=== PATIENT | female | born 1935 | race Caucasian/White ===

== ENCOUNTER 2021-01-01 15:40 | Outpatient (CLI) | payer MEDICARE, SELFPAY ==
--- NOTE | ~2021-01-01 | XR_ITS ---
EXAMINATION: XR knee LT 3V EXAM DATE: 01/01/2021 16:10 INDICATION: Fall yesterday, generalized left knee pain, stiffness. TECHNIQUE: Three projections of the left knee. There is no prior study for comparison. FINDINGS: There is no left knee joint effusion. There is mild scattered distal superficial femoral a rterial sclerosis. There is moderate to severe medial tibial femoral compartment, otherwise moderate left knee primary osteoarthritis. There are no acute fractures or dislocations identified. There is no subcutaneous gas. The soft tissue is unremarkable. There are no radiopaque foreign bodies. IMPRESSION: 1. XR knee LT 3V exam without acute osseous findings. 2. Advanced osteoarthritis. Reviewed, dictated and finalized at location B.
--- NOTE | ~2021-01-01 | XR_ITS ---
XR hip LT min 2V 01/01/2021 16:10 Indication: Left hip pain after recent fall Procedure: 2 views left hip Comparison: 06/15/2009 Findings: There is a vascular stent in the left femoral region. Mild osteoarthritis of the left hip. Mild osteitis pubis. No acute fracture or traumatic malalignment. There are vascular calcifications. Impression: 1: No acute fracture. Reviewed, dictated and finalized at location A. Impression: 1: No acute fracture.
== END 2021-01-01 15:41 | disposition home or self-care (01) ==
LOC: CHSIMG 15:45
PROVIDERS: PCP Internal Medicine; Visit Provider Internal Medicine
DX: S79.912A Unspecified injury of left hip, initial encounter (principal); S89.92XA Unspecified injury of left lower leg, initial encounter; W19.XXXA Unspecified fall, initial encounter
CPT/HCPCS: 73502; 73562

== ENCOUNTER 2021-10-08 07:26 | Emergency (ER) | payer MEDICARE, OTHER, SELFPAY ==
--- NOTE | ~2021-10-08 | XR_ITS ---
EXAMINATION: XR sacrum coccyx min 2V DATE: 10/08/2021 08:18 INDICATION: Low back pain. Left buttock pain. Fall. TECHNIQUE: 3 views of the sacrum and coccyx were obtained. COMPARISON: None. FINDINGS: There is lumbar levocurvature and severe spondylosis. No fracture. Osteitis pubis is noted. There is mild osteoarthritis of the sacroiliac joints. IMPRESSION: 1. No fracture. Reviewed, dictated and finalized at location A. IMPRESSION: 1. No fracture.
--- NOTE | ~2021-10-08 | XR_ITS ---
EXAMINATION: XR knee LT 3V DATE: 10/08/2021 08:18 INDICATION: Left knee pain and swelling. Fall. TECHNIQUE: 3 views of left knee were obtained. COMPARISON: Left knee radiographs 01/01/2021 FINDINGS: There is lateral subluxation of tibia with respect to distal femur. No fracture. There is s evere osteoarthritis of medial compartment and moderate osteoarthritis of lateral and patellofemoral compartments. No knee joint effusion. IMPRESSION: 1. Severe left knee osteoarthritis. Reviewed, dictated and finalized at location A.
--- NOTE | ~2021-10-08 | CT_ITS ---
EXAMINATION: CT brain wo con DATE: 10/08/2021 08:05 INDICATION: Fall with head injury TECHNIQUE: Computed tomography (CT) of the head was performed without intravenous contrast. Sagittal and coronal reconstructions were performed. The mA was adjusted according to patient size. Iterative reconstruction technique was employed. The dose-length product was 605.33 mGy-cm. COMPARISON: None FINDINGS: No fracture. No acute intracranial hemorrhage, acute infarction or abnormal extra axial fluid collect ion. There is mild scattered white matter hypoattenuation consistent with chronic small vessel ischem ic disease. Ventricles are normal and symmetric. No mass/mass effect. Changes of bilateral intraocul ar lens replacement. The paranasal sinuses and left mastoid air cells and middle ear cavity are clear . The right mastoid is hypopneumatized with right mastoid effusion which surrounds the ossicular saranya n. Intracranial calcified cerebral atherosclerosis is noted. IMPRESSION: 1. Normal aging brain. No fracture or acute intracranial process. 2. 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 Reviewed, dictated and finalized at location A. IMPRESSION: 1. Normal aging brain. No fracture or acute intracranial process. 2. Right otomastoiditis fusion with developmentally hypopneumatized right masto id.
--- NOTE | 2021-10-08 07:39 | ED.FALL ---
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 She fell on her bottom. -- Worsening of her left knee and with swelling. -- after the fall she hit the back of her head. No loss of consciousness. No headache or vomiting. MD complaint: fall Onset (ago): hour(s) ( Fell 1 hour ago.) Fall from: standing Fall witnessed: no Place fall occurred: home Loss of consciousness: none Prolonged down time: no Symptoms prior to fall: none Context: tripped/slipped Location of injury: head and back Location of injury - extremities: Left: knee Quality: dull and aching Related Data Home Medications Medication Instructions Recorded Confirmed alendronate 70 mg tablet 70 mg PO WEEKLY 10/08/21 10/08/21 alprazolam 0.5 mg tablet 0.5 mg PO HS 10/08/21 10/08/21 amlodipine 10 mg tablet 10 mg PO DAILY 10/08/21 10/08/21 clopidogrel 75 mg tablet 75 mg PO DAILY 10/08/21 10/08/21 glimepiride 2 mg tablet 2 mg PO DAILY 10/08/21 10/08/21 levothyroxine 50 mcg tablet 50 mcg PO DAILY 10/08/21 10/08/21 losartan 100 mg tablet 100 mg PO DAILY 10/08/21 10/08/21 metoprolol tartrate 100 mg tablet 100 mg PO BID 10/08/21 10/08/21 timolol maleate 0.5 % eye drops 1 drp EACH EYE QAM 10/08/21 10/08/21 Allergies Allergy/AdvReac Type Severity Reaction Status Date / Time aspirin Allergy Mild Dizziness Unverified 06/21/08 15:51 amoxicillin [From Augmentin] Allergy Anaphylaxis Verified 10/08/21 07:50 clavulanic acid Allergy Anaphylaxis Verified 10/08/21 07:50 [From Augmentin] Review of Systems Review of Systems: All systems reviewed & are unremarkable except as noted in HPI and below Constitutional: Constitutional: Reports as per HPI and Reports no additional constitutional complaints Eyes: Eyes: Reports as per HPI and Reports no additional eye complaints ENT: Reports system reviewed and no additional complaints, except as documented and Reports as per HPI Cardiovascular: Cardiovascular: Reports as per HPI and Reports no additional cardiovascular complaints Respiratory: Respiratory: Reports as per HPI and Reports no additional respiratory complaints Gastrointestinal: Gastrointestinal: Reports as per HPI and Reports no additional gastrointestinal complaints Genitourinary: Genitourinary: Reports no additional female genitourinary complaints and Reports as per HPI Musculoskeletal: Musculoskeletal: Reports no additional musculoskeletal complaints Comments: Low back pain without any radiation. Left knee pain with swelling. Chronic right ankle pain. Integumentary/Breasts: Skin/Breast: Reports system reviewed and no additional complaints, except as docu Comments: Bruises in both upper extremities Neurologic: Reports system reviewed and no additional complaints, except as documented and Reports as per HPI Psychiatric: Psychiatric: Reports no additional psychiatric complaints and Reports as per HPI Endocrine: Endocrine: Reports no additional endocrine complaints and Reports as per HPI Hematologic/Lymphatic: Hematologic/Lymphatic: Reports no additional hematologic/lymphatic complaints and Reports as per HPI Allergic/Immunologic: Allergic/Immunologic: Reports no additional allergic/immunologic complaints and Reports as per HPI [facility] Past Medical History Medical History (Updated 10/08/21 @ 08:48 by Franklin Roque MD) Smith's palsy Peripheral vascular disease Surgical History Surgical History (Updated 10/08/21 @ 07:55 by Franklin Roque MD) H/O carotid endarterectomy H/O neck surgery
[2021-10-08 07:44] VITALS: BP 158/67; PULSE 58; RESP 16; TEMP 36.4; O2SAT 98
[2021-10-08 08:51] VITALS: BP 148/67; PULSE 68; RESP 17; TEMP 36.4; O2SAT 96
[2021-10-29 13:46] LABS: Glucose Point of Care 163 mg/dl (65-105)
== END 2021-10-08 08:57 | disposition home or self-care (01) ==
PROVIDERS: Emergency Provider Internal Medicine Critical Care Medicine; PCP Internal Medicine
DX: M19.90 Unspecified osteoarthritis, unspecified site (principal); S09.90XA Unspecified injury of head, initial encounter; W19.XXXA Unspecified fall, initial encounter; G51.0 Bell's palsy; I73.9 Peripheral vascular disease, unspecified; E11.9 Type 2 diabetes mellitus without complications
CPT/HCPCS: 70450; 72220; 73562; 82948; 99284

== ENCOUNTER 2022-05-13 06:00 | Observation (INO) | payer MEDICARE, OTHER, SELFPAY ==
[2022-05-13] VITALS (28 sets, daily range): BP systolic 148–202; BP diastolic 60–84; PULSE 62–124; RESP 12–21; TEMP 36.1–37; O2SAT 94–100; BMI 32.4
--- NOTE | ~2022-05-13 | XR_ITS ---
EXAMINATION: XR chest 1V portable DATE: 05/13/2022 06:38 INDICATION: Cough and shortness of breath TECHNIQUE: frontal view of the chest was obtained. COMPARISON: Chest radiograph dated 12/30/11 FINDINGS: Mildly decreased lung volumes. Mild anomaly streaky opacities in bilateral lower lung zones. No pneum othorax or definitive pleural effusion. Size is normal. Bilateral rotator cuff arthropathy. IMPRESSION: 1. Small lung volumes with mild opacities in the bilateral lower lung zones most likely representing atelectasis with differential including pneumonia or mild pulmonary edema. Reviewed, dictated and finalized at location A. ERING OPERATOR IMPRESSION: 1. Small lung volumes with mild opacities in the bilateral lower lung zones mos t likely representing atelectasis with differential including pneumonia or mild pulmonary edema.
--- NOTE | ~2022-05-13 | CT_ITS ---
EXAMINATION: CTA chest PE protocol DATE: 05/13/2022 08:15 INDICATION: Shortness of breath. Cough. TECHNIQUE: Computed tomography angiography (CTA) of the chest was performed with 100 mL Omnipaque-350 intravenous contrast timed to evaluate the pulmonary arteries. Coronal maximum intensity projection 3D-reconstructions were created by the technologist. Automated exposure control and iterative reconst ruction technique were employed. The dose-length product was 500.72 mGy-cm. COMPARISON: None. FINDINGS: There is widespread peripheral septal thickening in the lungs bilaterally associated with m ild groundglass opacities. There is bronchiectasis and honeycombing in the peripheral inferior lungs. A calcified right lung nodule and calcified right hilar lymph nodes are consistent with old granulom atous disease. No pleural effusion. The heart size is normal. There are coronary artery calcification s. No pericardial effusion. There is no pulmonary embolus. There is mild chronic anterior wedging of multiple thoracic vertebral bodies. There is moderate thoracic spondylosis. IMPRESSION: 1. No pulmonary embolus. 2. 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 Reviewed, dictated and finalized at location A. MOMETER TESTER IMPRESSION: 1. No pulmonary embolus. 2. Chronic interstitial lung disease in a pattern of usual interstitial pneumon ia (UIP).
--- NOTE | 2022-05-13 06:15 | ED.GENADULT ---
HPI - General Adult General Chief complaint: Shortness of Breath/Dyspnea <Chandrakant Tomlinson MD - Last Filed: 05/13/22 06:54> Stated complaint: Shortness of Breath <Chandrakant Tomlinson MD - Last Filed: 05/13/22 06:54> Time Seen by Provider: 05/13/22 06:15 <Chandrakant Tomlinson MD - Last Filed: 05/13/22 06:54> Source: patient <Chandrakant Tomlinson MD - Last Filed: 05/13/22 06:54> Mode of arrival: ambulatory <Chandrakant Tomlinson MD - Last Filed: 05/13/22 06:54> Limitations: no limitations <Chandrakant Tomlinson MD - Last Filed: 05/13/22 06:54> History of Present Illness HPI narrative: patient is a 86-year-old white female complains shortness of breath off and on for the last week worse over last 3 days especially last night. She has had a cough productive of whitish sputum. She said they changed her Advair to Breo yesterday because of thrush. Taken her albuterol meter dose inhaler and Breo without any relief last night. She denies any chest pain or any pain. Denies any nausea or vomiting bleeding or bruising problems eating or drinking swelling. Last bowel movement was yesterday which was normal. Denies any history of heart disease. She has asthma since she had breast cancer and radiation denies any other complaints <Chandrakant Tomlinson MD - Last Filed: 05/13/22 06:54> Related Data Home medications: Home Medications Medication Instructions Recorded Confirmed alprazolam 0.5 mg tablet 0.5 mg PO HS 10/08/21 05/13/22 amlodipine 10 mg tablet 10 mg PO DAILY 10/08/21 05/13/22 clopidogrel 75 mg tablet 75 mg PO DAILY 10/08/21 05/13/22 glimepiride 2 mg tablet 3.5 mg PO QAM 10/08/21 05/13/22 losartan 100 mg tablet 100 mg PO DAILY 10/08/21 05/13/22 metoprolol tartrate 100 mg tablet 100 mg PO BID 10/08/21 05/13/22 timolol maleate 0.5 % eye drops 1 drp EACH EYE QAM 10/08/21 05/13/22 albuterol sulfate 90 mcg/actuation 2 puff inhalation Q6H PRN 05/13/22 05/13/22 aerosol inhaler Shortness Of Breath Or Wheezing alendronate 70 mg tablet 70 mg PO WEEKLY 05/13/22 05/13/22 ergocalciferol (vitamin D2) 1,250 1,250 mcg PO WEEKLY 05/13/22 05/13/22 mcg (50,000 unit) capsule fluticasone furoate 200 1 inh inhalation DAILY 05/13/22 05/13/22 mcg-vilanterol 25 mcg/dose inhalation powder (Breo Ellipta) levothyroxine 75 mcg tablet See Rx Instructions .Route .COMPLEX 05/13/22 05/13/22 <Chandrakant Tomlinson MD - Last Filed: 05/13/22 06:54> Allergies/adverse reactions: Allergies Allergy/AdvReac Type Severity Reaction Status Date / Time aspirin Allergy Mild Dizziness Verified 05/13/22 06:16 amoxicillin [From Augmentin] Allergy Anaphylaxis Verified 05/13/22 06:16 clavulanic acid Allergy Anaphylaxis Verified 05/13/22 06:16 [From Augmentin] <Chandrakant Tomlinson MD - Last Filed: 05/13/22 06:54> Review of Systems Constitutional: Constitutional: Reports no additional constitutional complaints, Denies chills, Denies fatigue, Denies fever(s) and Denies weakness <Chandrakant Tomlinson MD - Last Filed: 05/13/22 06:54> Eyes: Eyes: Reports no additional eye complaints <Chandrakant Tomlinson MD - Last Filed: 05/13/22 06:54> ENT: Reports system reviewed and no additional complaints, except as documented <Chandrakant Tolminson MD - Last Filed: 05/13/22 06:54> Cardiovascular: Cardiovascular: Reports as per HPI, Reports no additional cardiovascular complaints and Denies chest pain <Chandrakant Tomlinson MD - Last Filed: 05/13/22 06:54> Respiratory: Respiratory: Reports as per HPI and Reports no additional respiratory complaints <Chandrakant Tomlinson MD - Last Filed: 05/13/22 06:54> Gastrointestinal: Gastrointestinal: Reports as per HPI and Reports no additional gastrointestinal complaints <Chandrakant Tomlinson MD - Last Filed: 05/13/22 06:54> Genitourinary: Genitourinary: Denies hematuria, Denies nocturia, Denies flank pain and Denies urinary incontinence <Chandrakant Tomlinson MD - Last Filed: 05/13/22 06:
--- NOTE | 2022-05-13 06:22 | ECG_ITS ---
Measurements Intervals [place] Rate: 72 P: 59 ME: 162 QRS: -31 QRSD: 125 T: 57 QT: 426 QTc: 469 Interpretive Statements SINUS RHYTHM LEFT AXIS DEVIATION INTRAVENTRICULAR CONDUCTION DELAY CONSIDER ANTERIOR INFARCT, AGE INDETERMINATE INFERIOR INFARCT, AGE INDETERMINATE BASELINE ARTIFACT- II, III, AVR, AVF, V6 ABNORMAL ECG NO PREVIOUS ECG AVAILABLE FOR COMPARISON Electronically Signed On 05-13-2022 6:59:47 WELLNESS MANAGER by Yousuf Jimenez D.O.
[2022-05-13] MEDS: IPRATROPIUM 0.5 MG/ALBUTEROL SULFATE 2.5 MG AMPUL.NEB 3 ML INHALATION ×4 (06:36→23:22)
[2022-05-13] MEDS: SODIUM CHLORIDE 0.9% IV 500 ML 999 ML IV CONT (06:57)
[2022-05-13 06:59] LABS: Hematocrit 38.6 % (35.0-42.0); Hemoglobin 13.1 g/dL (11.7-13.8); Mean Corpuscular HGB Conc 33.9 g/dL (32.0-36.0); Mean Corpuscular Hemoglobin 31.8 pg (27.0-31.0); Mean Corpuscular Volume 93.7 fL (78.0-102.0); Mean Platelet Volume 9.9 fl (9.2-11.8); Platelet Count Result 317 K/mm3 (150-420); Red Blood Count 4.12 M/mm3 (4.20-5.40); Red Cell Distribution Width 13.1 % (11.6-14.4); White Blood Count 9.9 K/mm3 (4.8-10.8)
[2022-05-13 07:00] LABS: Appearance Urine Clear (Clear); Bilirubin Urine Negative (Negative); Blood Urine Negative (Negative); Color Urine Light Yellow (Yellow); Glucose Urine UA Negative (Negative); Ketones Urine Negative (Negative); Leukocyte Esterase Ur 1+ LEU/UL (Negative); Nitrate Urine Negative (Negative); Protein Urine Negative (Negative); Specific Grav Ur <= 1.005 (1.010-1.020); Urobilinogen Urine 0.2 mg/dL (0.2-1.0)
[2022-05-13 07:00] LABS: Base Excess ABG -0.7 mmol/L (0-2); HCO3 ABG 19.3 mmol/L (23-29); Oxygen Content ABG 19.2 %vol (16.0-22.0); Oxygen Saturation ABG 98.1 % (95-97); Oxyhemoglobin 97.6 % (94-100); PCO2 ABG 21.8 mmHg (35-45); PO2 ABG 102.9 mmHg (75-85); Total Hemoglobin 13.9 g/dL (12.0-18.0); pH ABG 7.57 (7.35-7.45)
[2022-05-13 07:01] LABS: Device ROOM AIR; Modified Allen's Test Pass; Site Drawn LEFT RADIAL
[2022-05-13] MEDS: levoFLOXacin 500 MG/D5W 100 ML 500 MG/100 ML BAG 100 MG IVPB (07:03)
[2022-05-13 07:08] LABS: Add Urine Microscopic? YES; Bacteria Urine Rare /hpf; RBC Urine None seen /hpf (0-2); Squamous Epithelial Cell Urine Few /hpf (Few); WBC Urine 0-3 /hpf (0-3)
[2022-05-13 07:15] LABS: Partial Thromboplastin Time 26.9 SEC (23.90-30.70); Prothrombin Time 10.9 Seconds (9.50-12.10)
[2022-05-13 07:19] LABS: D Dimer 1.69 mg/L (0.19-0.50)
[2022-05-13 07:25] LABS: NT Pro B Type Natriuretic Pept 399 pg/mL (0-450)
[2022-05-13 07:25] LABS: Alanine Aminotransferase 21 U/L (14-59); Albumin Level 3.2 g/dL (3.4-5.0); Alkaline Phosphatase 103 U/L (46-116); Anion Gap 13 mmol/L (8-16); Aspartate Amino Transferase 15 U/L (15-37); Bilirubin,Total 0.4 mg/dL (0.00-1.00); Blood Urea Nitrogen 17 mg/dL (7-18); Calcium 9.1 mg/dL (8.5-10.1); Carbon Dioxide 21 mmol/L (21-32); Chloride 109 mmol/L (98-108); Estimated CRCL calculation 33 ml/min; Estimated Glomerular Filt Rate 42; Glucose 162 mg/dL (70-99); Osmolality Calculated 301 mOsm/kg (285-295); Potassium 3.6 mmol/L (3.5-5.1); Sodium 143 mmol/L (136-145); Total Protein 7.8 g/dL (6.4-8.2); Troponin I 11.5 ng/L (0.00-60.4)
[2022-05-13 07:40] LABS: Influenza A QL RT-PCR Negative (Negative); Influenza B QL RT-PCR Negative (Negative); SARS-CoV-2 RNA PCR Negative (Negative)
[2022-05-13 07:41] LABS: RSV RNA, RT-PCR Negative (Negative)
[2022-05-13 10:00] LABS: Hemoglobin A1C 6.4 % (<5.7)
--- NOTE | 2022-05-13 10:05 | ADMGEN ---
This patient, Mona Uribe, was admitted to 2nd Floor Room 209-1. Patient/family oriented to hospital policies and general routines including ID bracelet, bed and alarms, visiting hours, pain management, procedures, bathroom and other care routines, personal items, smoking policy, room service/diet, and visiting hours. Information on how to activate the Rapid Response Team has been discussed. Patient/Family are encouraged to report perceived risks to care and to ask questions if they do not understand what they are told or what they should do.
[2022-05-13] MEDS: SODIUM CHLORIDE 0.9% IV 1,000 ML 75 ML IV CONT (11:23)
[2022-05-13] MEDS: ENOXAPARIN 30 MG/0.3 ML SYRINGE SUB-Q (11:23)
[2022-05-13] MEDS: METOPROLOL TARTRATE 50 MG TAB 100 MG PO ×2 (11:24→20:41)
[2022-05-13] MEDS: LOSARTAN POTASSIUM 50 MG TABLET 100 MG PO (11:24)
[2022-05-13] MEDS: CLOPIDOGREL BISULFATE 75 MG TABLET PO (11:24)
[2022-05-13 12:00] LABS: Glucose Point of Care 120 mg/dl (65-105)
[2022-05-13 16:45] LABS: Glucose Point of Care 101 mg/dl (65-105)
[2022-05-13] MEDS: amLODIPine BESYLATE 5 MG TABLET 10 MG PO (20:41)
[2022-05-13] MEDS: TIMOLOL MALEATE 0.5% OP SOLN 5 ML BOTTLE 1 DROP EACH EYE (20:41)
[2022-05-13] MEDS: ALPRAZolam (*CRX) 0.5 MG TABLET PO (20:41)
[2022-05-13 20:52] LABS: Glucose Point of Care 135 mg/dl (65-105)
[2022-05-14] MEDS: SODIUM CHLORIDE 0.9% IV 1,000 ML 75 ML IV CONT (00:28)
[2022-05-14 05:02] VITALS: PULSE 68; RESP 16; O2SAT 96
[2022-05-14] MEDS: IPRATROPIUM 0.5 MG/ALBUTEROL SULFATE 2.5 MG AMPUL.NEB 3 ML INHALATION (05:02)
[2022-05-14 05:11] VITALS: PULSE 67; RESP 20
[2022-05-14] MEDS: levoFLOXacin 250 MG/D5W 50 ML 250 MG/50 ML BAG 50 MG IVPB (06:08)
[2022-05-14] MEDS: LEVOTHYROXINE SODIUM 75 MCG TABLET PO (06:09)
[2022-05-14 07:55] LABS: Glucose Point of Care 142 mg/dl (65-105)
[2022-05-14 09:00] VITALS: BP 121/71; PULSE 70; RESP 18; TEMP 36.4; O2SAT 96
[2022-05-14 09:27] LABS: Hemoglobin 11.9 g/dL (11.7-13.8); Mean Corpuscular Hemoglobin 32.3 pg (27.0-31.0); Mean Corpuscular Volume 95.1 fL (78.0-102.0); Mean Platelet Volume 9.7 fl (9.2-11.8); Platelet Count Result 269 K/mm3 (150-420); Red Blood Count 3.68 M/mm3 (4.20-5.40); Red Cell Distribution Width 13.4 % (11.6-14.4); White Blood Count 9.1 K/mm3 (4.8-10.8)
[2022-05-14 09:39] VITALS: PULSE 70
[2022-05-14] MEDS: GLIMEPIRIDE 2 MG TABLET 3 MG PO (09:39)
[2022-05-14] MEDS: METOPROLOL TARTRATE 50 MG TAB 100 MG PO (09:39)
[2022-05-14] MEDS: LOSARTAN POTASSIUM 50 MG TABLET 100 MG PO (09:39)
[2022-05-14] MEDS: CLOPIDOGREL BISULFATE 75 MG TABLET PO (09:39)
[2022-05-14 09:44] LABS: Alanine Aminotransferase 19 U/L (14-59); Albumin Level 2.7 g/dL (3.4-5.0); Alkaline Phosphatase 90 U/L (46-116); Anion Gap 12 mmol/L (8-16); Aspartate Amino Transferase < 10 U/L (15-37); Bilirubin,Total 0.4 mg/dL (0.00-1.00); Blood Urea Nitrogen 15 mg/dL (7-18); Calcium 8.5 mg/dL (8.5-10.1); Carbon Dioxide 21 mmol/L (21-32); Chloride 109 mmol/L (98-108); Estimated CRCL calculation 36 ml/min; Estimated Glomerular Filt Rate 47; Glucose 223 mg/dL (70-99); Osmolality Calculated 301 mOsm/kg (285-295); Potassium 3.7 mmol/L (3.5-5.1); Sodium 142 mmol/L (136-145); Total Protein 6.8 g/dL (6.4-8.2)
--- NOTE | 2022-05-14 10:29 | PM.SD2 ---
Same Day Admit/Disch: HPI History of Present Illness Chief complaint: PNEUMONIA HYPOXIA HYPERTENSION Narrative: Mona Uribe is a 86 year old female ?with complains SOB , that she has had for the last week that worse the last 3 days especially last night. ? patient has a past medical history of PVD and Smith's palsy. She has had a productive cough withwhitish sputum.? She said her primary care physician changed her Advair to Breo, she does not believe that the probable works for her and that the Advair works better. according to patient she was switch because of chronic thrush.? I did speak with patient's primary care physician per patient request. her PCP is okay with her changing her medication back to Advair. She will also discharge home with a nebulizer and solution instructed to use if her inhalers are not working. Patient also instructed to use a special loosen to soak her dentures in in case this is the reason for her continuous thrust diagnosis. admission WBC 9.9, hemoglobin at 13.1, hematocrit 38.6, platelets 317, sodium 143, potassium 3.6, BUN 17, creatinine 1.22, glucose 162, urine positive for leukocytes and bacteria, D-dimer elevated 1.69 troponin 11.5 BNP 399, influenza RSV and COVID negative chest x indicate possible pneumonia, patient D-dimer elevated CTA negative for PE. The patient denies, CP, palpitation, extremity numbness, lightheadedness, dizziness, constipation, diarrhea, chills, or fever. Discharge instructions reviewed with patient, as well as provided in writing per nursing staff. The instructions also include specific and strict return/GO TO THE ER as well as f/u information. All questions have been answered, and the patient and/or family deny any further questions with discharge and discharge plan. Patient notes that her condition has much improved she believes she is ready for discharge she will follow-up with her primary care physician. [facility] Past Medical History Medical History Smith's palsy Peripheral vascular disease Surgical History Surgical History H/O carotid endarterectomy H/O neck surgery Social History Social History Smoking status: Never smoker Second hand tobacco smoke exposure: Yes Alcohol intake: unknown Substance use: never Substance use type: does not use Lack of Transportation: No Lack of Food: Never True Current Housing: I Have Housing Concerned About Future Housing: No Difficulty Paying Gas/Electric Bills: No Difficulty Paying for Meds: No Currently Unemployed: No Education: High School Diploma/GED Difficulty w/ Childcare or Family Care: No Spiritual care concerns: No Same Day Admit/Disch: Med Pre-admit Medications Home Medications Medication Instructions Recorded Confirmed Type alprazolam 0.5 mg tablet 0.5 mg PO HS 10/08/21 05/13/22 History amlodipine 10 mg tablet 10 mg PO DAILY 10/08/21 05/13/22 History clopidogrel 75 mg tablet 75 mg PO DAILY 10/08/21 05/13/22 History glimepiride 2 mg tablet 3 mg PO QAM 10/08/21 05/14/22 History losartan 100 mg tablet 100 mg PO DAILY 10/08/21 05/13/22 History metoprolol tartrate 100 mg tablet 100 mg PO BID 10/08/21 05/13/22 History timolol maleate 0.5 % eye drops 1 drp EACH EYE QA 10/08/21 05/13/22 History alendronate 70 mg tablet 70 mg PO WEEKLY 05/13/22 05/13/22 History ergocalciferol (vitamin D2) 1,250 1,250 mcg PO WEEKLY 05/13/22 05/13/22 History mcg (50,000 unit) capsule levothyroxine 75 mcg tablet See Rx Instructions .Route .COMPLEX 05/13/22 05/13/22 History Lactobacillus 40-Bifidobact 1 cap PO DAILY #30 caps 05/14/22 Rx 3-S.thermophilus 100 billion cell capsule (Probiotic) albuterol sulfate 90 mcg/actuation 2 puff inhalation Q6H PRN 05/14/22 05/13/22 Rx aerosol inhaler Shortness Of Breath Or Wheezing 30 days #6.7 grams
--- NOTE | 2022-05-14 12:40 | PC.NURSE ---
Discharge packet reviewed with patient. Pt's prescriptions were sent to two different pharmacies. Pt was given written scripts to ensure that she will be able to take all her meds. Pt verbalized understanding of all instructions and her questions were answered. Pt stated she will not be starting her new meds until tomorrow since she doesn't need the antibiotic until tomorrow. Pt was transported via wheelchair to front of hospital and assisted into private vehicle.
--- NOTE | 2022-05-19 10:30 | PC.NURSE ---
Pt states she received and understood the discharge instructions. Has no other comments.
== END 2022-05-14 12:40 | disposition home or self-care (01) ==
LOC: CHSED 09:35 → CHS2ND 09:37
PROVIDERS: Emergency Medicine; Nurse Practitioner; Nurse Practitioner Family; Admitting Provider Internal Medicine; Emergency Provider Preventive Medicine Aerospace Medicine; PCP Internal Medicine; Visit Provider Internal Medicine
DX: J18.9 Pneumonia, unspecified organism (principal); J44.1 Chronic obstructive pulmonary disease with (acute) exacerbation; J44.0 Chronic obstructive pulmonary disease with (acute) lower respiratory infection; N17.9 Acute kidney failure, unspecified; E11.51 Type 2 diabetes mellitus with diabetic peripheral angiopathy without gangrene; M19.90 Unspecified osteoarthritis, unspecified site; Z85.3 Personal history of malignant neoplasm of breast; Z86.718 Personal history of other venous thrombosis and embolism; Z79.02 Long term (current) use of antithrombotics/antiplatelets; Z20.822 Contact with and (suspected) exposure to COVID-19; Z79.899 Other long term (current) drug therapy
CPT/HCPCS: 36415; 36600; 71045; 71275; 80053; 81001; 82805; 82948; 83036; 83735; 83880; 84484; 85027; 85380; 85610; 85730; 87040; 87086; 87637; 93005; 94640; 96361; 96365; 96366; 96372; 96374; 97161; 97165; 99285; A9270; G0378; J1650; J1956; J7030; J7040; Q9967

== ENCOUNTER 2022-05-25 17:33 | Emergency (ER) | payer MEDICARE, OTHER, SELFPAY ==
[2022-05-25] VITALS (12 sets, daily range): BP systolic 131–192; BP diastolic 57–89; PULSE 73–110; RESP 18; TEMP 36.4–37; O2SAT 96–98
--- NOTE | ~2022-05-25 | XR_ITS ---
EXAMINATION: XR chest 1V portable Exam Date/Time: 05/25/2022 18:20 CDT HISTORY: WEAKNESS, NAUSEA TODAY HX PVD, CAROTID ENDARTERECTOMY Comparison: 05/13/2022. RESULT: Lines, tubes, and devices: None. Lungs and pleura: Peribronchial cuffing and diffuse reticular opacities, overlying chronic senescent change. Cardiomediastinal silhouette: Stable. Other: No acute osseous or upper abdominal finding. IMPRESSION: Pulmonary opacities may represent mild bronchiolitis or mild interstitial edema. Reviewed, dictated and finalized at location K. IMPRESSION: Pulmonary opacities may represent mild bronchiolitis or mild interstitial edema .
--- NOTE | 2022-05-25 17:54 | ECG_ITS ---
Measurements Intervals [place] Rate: 70 P: 102 RI: 185 QRS: -30 QRSD: 114 T: 57 QT: 420 QTc: 453 Interpretive Statements SINUS RHYTHM LEFT AXIS DEVIATION INTRAVENTRICULAR CONDUCTION DELAY LEFT VENTRICULAR HYPERTROPHY ANTERIOR INFARCT, AGE INDETERMINATE INFERIOR INFARCT, AGE INDETERMINATE BASELINE ARTIFACT- I, II, III, AVR, AVL, AVF, V1-V6 ABNORMAL ECG COMPARED TO ECG 05/13/2022 06:42:51 NO SIGNIFICANT CHANGES Electronically Signed On 05-25-2022 21:39:23 CDT by Yousuf Jimenez D.O.
--- NOTE | 2022-05-25 17:56 | ED.GENADULT ---
HPI - General Adult General Chief complaint: Weakness Stated complaint: Nausea Time Seen by Provider: 05/25/22 17:56 History of Present Illness HPI narrative: the patient is an 86-year-old woman with a history of asthma COPD, breast cancer status post radiation, hypertension, diabetes, osteoarthritis, anxiety, depression, peripheral vascular disease. She was doing reasonably well until 4:30 p.m. today, approximately 90 minutes ago whereby she suddenly felt weak, with a sensation of nausea and a dry mouth. She continues to have those symptoms. No other symptoms such as abdominal pain or chest pain. No cough that is different than usual, does have a chronic mild cough. No rhinorrhea or nasal congestion. No fevers or chills or diaphoresis. No UTI symptoms such as urgency or frequency, or dysuria. Related Data Home Medications Medication Instructions Recorded Confirmed alprazolam 0.5 mg tablet 0.5 mg PO HS 10/08/21 05/25/22 amlodipine 10 mg tablet 10 mg PO DAILY 10/08/21 05/25/22 clopidogrel 75 mg tablet 75 mg PO DAILY 10/08/21 05/25/22 glimepiride 2 mg tablet 3 mg PO QAM 10/08/21 05/25/22 losartan 100 mg tablet 100 mg PO DAILY 10/08/21 05/25/22 metoprolol tartrate 100 mg tablet 100 mg PO BID 10/08/21 05/25/22 timolol maleate 0.5 % eye drops 1 drp EACH EYE QAM 10/08/21 05/25/22 ergocalciferol (vitamin D2) 1,250 1,250 mcg PO WEEKLY 05/13/22 05/25/22 mcg (50,000 unit) capsule levothyroxine 75 mcg tablet See Rx Instructions .Route .COMPLEX 05/13/22 05/25/22 clotrimazole 10 mg kirti 10 mg PO BID 05/25/22 05/25/22 escitalopram oxalate 10 mg tablet 10 mg PO DAILY 05/25/22 05/25/22 Allergies Allergy/AdvReac Type Severity Reaction Status Date / Time aspirin Allergy Mild Dizziness Verified 05/25/22 17:45 amoxicillin [From Augmentin] Allergy Anaphylaxis Verified 05/25/22 17:45 clavulanic acid Allergy Anaphylaxis Verified 05/25/22 17:45 [From Augmentin] Review of Systems Review of Systems: All systems reviewed & are unremarkable except as noted in HPI and below Constitutional: Constitutional: Reports as per HPI, Reports no additional constitutional complaints, Denies chills, Denies excessive sweating, Reports fatigue, Denies fever(s), Denies headache(s) and Reports weakness Eyes: Eyes: Reports as per HPI, Reports no additional eye complaints, Denies change in vision and Denies photophobia ENT: Reports system reviewed and no additional complaints, except as documented, Reports as per HPI, Denies dysphagia, Denies vertigo, Denies dizziness, Denies headache(s), Denies lip swelling, Denies nasal congestion, Denies sore throat, Denies throat swelling and Denies tongue swelling Cardiovascular: Cardiovascular: Reports as per HPI, Reports no additional cardiovascular complaints, Denies chest pain, Denies syncope, Denies rapid heart rate and Denies dyspnea Respiratory: Respiratory: Reports as per HPI, Reports no additional respiratory complaints, Denies chest congestion, Reports cough (chronic), Denies dyspnea and Denies wheezing Gastrointestinal: Gastrointestinal: Reports as per HPI, Reports no additional gastrointestinal complaints, Denies abdominal pain, Denies constipation, Denies dysphagia, Denies diarrhea, Reports nausea and Denies vomiting Genitourinary: Genitourinary: Reports as per HPI, Denies hematuria, Denies urinary frequency, Denies dysuria, Denies urinary incontinence and Denies urinary urgency Musculoskeletal: Musculoskeletal: Reports no additional musculoskeletal complaints, Denies back pain, Denies myalgias, Denies arthralgias, Denies joint swelling and Denies numbness Integumentary/Breasts: Skin/Breast: Reports system reviewed and no additional complaints, except as docu, Denies pruritus, Denies erythema, Denies rash and Denies skin ulcer Neurologic: Reports system reviewed and no additional complaints, except as documented, Reports as per HPI, Denies confusion, Denies vertigo, Denies dizziness, Denies syncope, Denies headache
[2022-05-25 18:14] LABS: Basophils Absolute Auto 0.06 K/mm3 (0.00-0.10); Basophils Percent Auto 0.6 % (0.0-1.0); Eosinophils Absolute Auto 0.16 K/mm3 (0.02-0.50); Eosinophils Percent Auto 1.6 % (1.0-6.0); Hematocrit 39.9 % (35.0-42.0); Hemoglobin 13.2 g/dL (11.7-13.8); Immature Granulocyte Absolute 0.03 K/mm3 (0.00-0.00); Immature Granulocyte Percent A 0.3 % (0.0-0.0); Lymphocytes Percent Auto 31.3 % (18.0-42.0); Mean Corpuscular HGB Conc 33.1 g/dL (32.0-36.0); Mean Corpuscular Hemoglobin 31.4 pg (27.0-31.0); Mean Platelet Volume 9.8 fl (9.2-11.8); Monocytes Absolute Auto 0.82 K/mm3 (0.10-0.90); Neutrophils Percent Auto 58.2 % (50.0-70.0); Platelet Count Result 312 K/mm3 (150-420); Red Cell Distribution Width 13.1 % (11.6-14.4); White Blood Count 10.2 K/mm3 (4.8-10.8)
[2022-05-25 18:18] LABS: Appearance Urine Clear (Clear); Bilirubin Urine Negative (Negative); Blood Urine Negative (Negative); Color Urine Light Yellow (Yellow); Glucose Urine UA Negative (Negative); Ketones Urine Negative (Negative); Leukocyte Esterase Ur Negative LEU/UL (Negative); Nitrate Urine Negative (Negative); Protein Urine Negative (Negative); Specific Grav Ur <= 1.005 (1.010-1.020); Urobilinogen Urine 0.2 mg/dL (0.2-1.0); pH Urine 5.5 (5.0-8.0)
[2022-05-25 18:19] LABS: Add Urine Microscopic? NO
[2022-05-25] MEDS: ONDANSETRON INJ 4 MG/2 ML VIAL IV PUSH ×2 (18:30→19:13)
[2022-05-25 18:31] LABS: Alanine Aminotransferase 22 U/L (14-59); Albumin Level 3.3 g/dL (3.4-5.0); Alkaline Phosphatase 113 U/L (46-116); Anion Gap 11 mmol/L (8-16); Aspartate Amino Transferase 17 U/L (15-37); Bilirubin,Total 0.2 mg/dL (0.00-1.00); Blood Urea Nitrogen 25 mg/dL (7-18); CRP 0.5 mg/dL (0.0-0.9); Calcium 8.7 mg/dL (8.5-10.1); Carbon Dioxide 23 mmol/L (21-32); Chloride 106 mmol/L (98-108); Estimated CRCL calculation 35 ml/min; Estimated Glomerular Filt Rate 44; Glucose 96 mg/dL (70-99); Lipase 59 U/L (16-77); Osmolality Calculated 294 mOsm/kg (285-295); Potassium 4.1 mmol/L (3.5-5.1); Sodium 140 mmol/L (136-145); Troponin I 9.8 ng/L (0.00-60.4)
[2022-05-25] MEDS: SODIUM CHLORIDE 0.9% IV 1,000 ML 999 ML IV CONT (18:31)
[2022-05-25] MEDS: hydrALAZINE HCL 20 MG/ML VIAL 10 MG IV PUSH (18:33)
[2022-05-25 18:50] LABS: Influenza A QL RT-PCR Negative (Negative); Influenza B QL RT-PCR Negative (Negative); SARS-CoV-2 RNA PCR Negative (Negative)
[2022-05-25 19:03] LABS: RSV RNA, RT-PCR Negative (Negative)
[2022-05-25 19:08] LABS: Erythrocyte Sedimentation Rate 32 mm/hr (0-20)
[2022-05-25] MEDS: METOCLOPRAMIDE HCL INJ 10 MG/2 ML VIAL IV PUSH (19:13)
[2022-05-25] MEDS: PROCHLORPERAZINE EDISYLATE 10 MG/2 ML VIAL IV PUSH (20:19)
== END 2022-05-25 20:57 | disposition home or self-care (01) ==
PROVIDERS: Emergency Provider Emergency Medicine; PCP Internal Medicine
DX: R11.2 Nausea with vomiting, unspecified (principal); R53.1 Weakness; E86.0 Dehydration; I10 Essential (primary) hypertension; J44.9 Chronic obstructive pulmonary disease, unspecified; E11.9 Type 2 diabetes mellitus without complications; Z20.822 Contact with and (suspected) exposure to COVID-19
CPT/HCPCS: 36415; 71045; 80053; 81003; 83690; 83735; 84484; 85025; 85652; 86140; 87637; 93005; 96361; 96374; 96375; 96376; 99284; J0360; J0780; J2405; J2765; J7030

== ENCOUNTER 2023-02-25 17:09 | Emergency (ER) | payer MEDICARE, OTHER, SELFPAY ==
[2023-02-25 17:09] VITALS: BP 160/67; PULSE 95; RESP 18; TEMP 36.8; O2SAT 96
--- NOTE | 2023-02-25 17:23 | ED.WOUNDLAC ---
HPI - Wound/Laceration General Chief Complaint: Wound/Laceration Stated Complaint: SKIN TEAR Time Seen by Provider: 02/25/23 17:23 Source: patient Mode of arrival: ambulatory Limitations: no limitations History of Present Illness HPI narrative: 87-year-old female with a history of anxiety / depression, hypertension, diabetes mellitus, breast cancer, osteoarthritis, peripheral vascular disease, COPD presents to the ER with -- L-shaped skin tear on the back of her left hand. She was cleaning when a lamp fell over her hand. No other injuries noted. She received her last tetanus shot 6 years ago. Onset (ago): hour(s) ( 1 hour) Extremity Location: Left: hand Body four view annotation: 1. L-shaped laceration on the back of the left hand. Place: home Patient tetanus UTD: No Context: accidental Associated symptoms: none Related Data Home Medications Medication Instructions Recorded Confirmed alprazolam 0.5 mg tablet 0.5 mg PO HS 10/08/21 05/25/22 amlodipine 10 mg tablet 10 mg PO DAILY 10/08/21 05/25/22 clopidogrel 75 mg tablet 75 mg PO DAILY 10/08/21 05/25/22 glimepiride 2 mg tablet 3 mg PO QAM 10/08/21 05/25/22 losartan 100 mg tablet 100 mg PO DAILY 10/08/21 05/25/22 metoprolol tartrate 100 mg tablet 100 mg PO BID 10/08/21 05/25/22 timolol maleate 0.5 % eye drops 1 drp EACH EYE QAM 10/08/21 05/25/22 ergocalciferol (vitamin D2) 1,250 1,250 mcg PO WEEKLY 05/13/22 05/25/22 mcg (50,000 unit) capsule levothyroxine 75 mcg tablet See Rx Instructions .Route .COMPLEX 05/13/22 05/25/22 clotrimazole 10 mg kirti 10 mg PO BID 05/25/22 05/25/22 escitalopram oxalate 10 mg tablet 10 mg PO DAILY 05/25/22 05/25/22 Allergies Allergy/AdvReac Type Severity Reaction Status Date / Time aspirin Allergy Mild Dizziness Verified 02/25/23 17:37 amoxicillin [From Augmentin] Allergy Anaphylaxis Verified 02/25/23 17:38 clavulanic acid Allergy Anaphylaxis Verified 02/25/23 17:38 [From Augmentin] Review of Systems Review of Systems: All systems reviewed & are unremarkable except as noted in HPI and below Constitutional: Constitutional: Reports as per HPI and Reports no additional constitutional complaints Eyes: Eyes: Reports as per HPI and Reports no additional eye complaints ENT: Reports system reviewed and no additional complaints, except as documented and Reports as per HPI Cardiovascular: Cardiovascular: Reports as per HPI and Reports no additional cardiovascular complaints Respiratory: Respiratory: Reports as per HPI and Reports no additional respiratory complaints Gastrointestinal: Gastrointestinal: Reports as per HPI and Reports no additional gastrointestinal complaints Genitourinary: Genitourinary: Reports no additional female genitourinary complaints and Reports as per HPI Musculoskeletal: Musculoskeletal: Reports no additional musculoskeletal complaints and Reports as per HPI Integumentary/Breasts: Skin/Breast: Reports system reviewed and no additional complaints, except as docu Comments: Skin tear on the back of her left hand Neurologic: Reports system reviewed and no additional complaints, except as documented and Reports as per HPI Psychiatric: Psychiatric: Reports no additional psychiatric complaints and Reports as per HPI Endocrine: Endocrine: Reports no additional endocrine complaints and Reports as per HPI Hematologic/Lymphatic: Hematologic/Lymphatic: Reports no additional hematologic/lymphatic complaints and Reports as per HPI Allergic/Immunologic: Allergic/Immunologic: Reports no additional allergic/immunologic complaints and Reports as per HPI PMFSH Past Medical History Medical History Smith's palsy Peripheral vascular disease Surgical History Surgical History H/O carotid endarterectomy H/O neck surgery Social History Social History (Reviewed 02/25/23 @ 17:38 by Marcia Oakley
[2023-02-25] MEDS: TETANUS,DIPHTHERIA,AC PERTUSSIS ADULT 0.5 ML (ADACEL) IM (17:51)
== END 2023-02-25 18:00 | disposition home or self-care (01) ==
PROVIDERS: Emergency Provider Internal Medicine Critical Care Medicine; PCP Internal Medicine
DX: S61.412A Laceration without foreign body of left hand, initial encounter (principal); I10 Essential (primary) hypertension; E11.9 Type 2 diabetes mellitus without complications; J44.9 Chronic obstructive pulmonary disease, unspecified; Z23 Encounter for immunization; Z85.3 Personal history of malignant neoplasm of breast; W26.8XXA Contact with other sharp object(s), not elsewhere classified, initial encounter
CPT/HCPCS: 90471; 90715; 99285

== ENCOUNTER 2023-05-18 13:52 | Outpatient (CLI) | payer MEDICARE, OTHER, SELFPAY ==
--- NOTE | ~2023-05-18 | XR_ITS ---
EXAMINATION: XR knee LT min 4V DATE: 05/18/2023 14:28 INDICATION: Left knee pain. TECHNIQUE: 3 views of left knee were obtained. COMPARISON: Left knee radiographs 10/08/2021 FINDINGS: There is varus angulation at the knee. No fracture. There is severe tricompartmental osteoa rthritis. No knee joint effusion. IMPRESSION: 1. Severe left knee osteoarthritis. Reviewed, dictated and finalized at location A.
--- NOTE | ~2023-05-18 | XR_ITS ---
EXAMINATION: XR knee RT min 4V DATE: 05/18/2023 14:29 INDICATION: Right knee pain. TECHNIQUE: 3 views of right knee were obtained. COMPARISON: None. FINDINGS: There is varus attenuation at the knee. No fracture. There is moderate osteoarthritis of me dial and patellofemoral compartments and mild osteoarthritis of lateral compartment. No knee joint ef fusion. IMPRESSION: 1. Moderate right knee osteoarthritis. Reviewed, dictated and finalized at location A.
== END 2023-05-18 13:53 | disposition home or self-care (01) ==
LOC: CHSIMG 13:55
PROVIDERS: PCP Internal Medicine; Visit Provider Internal Medicine
DX: M25.562 Pain in left knee (principal); M25.561 Pain in right knee; M17.0 Bilateral primary osteoarthritis of knee
CPT/HCPCS: 73564

== ENCOUNTER 2023-05-18 20:30 | Emergency (ER) | payer MEDICARE, OTHER, SELFPAY ==
[2023-05-18] VITALS (14 sets, daily range): BP systolic 140–165; BP diastolic 57–84; PULSE 64–88; RESP 18–20; TEMP 36.6–37.2; O2SAT 93–99
--- NOTE | ~2023-05-18 | CT_ITS ---
EXAMINATION: CT brain wo con DATE: 05/18/2023 22:07 INDICATION: head injury . TECHNIQUE: Computed tomography (CT) of the head was performed without intravenous contrast. The mA wa s adjusted according to patient size. Iterative reconstruction technique was employed. The dose-lengt h product was 681.00 mGy-cm. COMPARISON: None. FINDINGS: No acute intracranial hemorrhage or extra-axial fluid collection. No hydrocephalus, mass, or herniation. No acute ischemic infarct. Unremarkable dural venous sinus attenuation. No acute osseous abnormality. Left posterior frontal scalp contusion Poorly pneumatized right mastoid air cells with fluid, fluid in the right middle ear cavity, the laith ining aerated spaces are clear. Mild atrophy and chronic white matter change. Atherosclerotic intracranial calcification. Bilateral l ens replacements. IMPRESSION: No acute intracranial process. Reviewed, dictated and finalized at location K.
--- NOTE | 2023-05-18 20:40 | ED.FALL ---
HPI - Fall General Chief Complaint: Fall Stated Complaint: fall Time Seen by Provider: 05/18/23 20:36 Source: patient Mode of arrival: ambulatory History of Present Illness HPI Narrative: Patient is a 7-year-old female with a significant past medical history that presents today a fall. Patient got caught up in her roller walker and tripped and fell and hit her head on the walker. She states that is very painful and she just wants to make sure that there are no fractures or any internal bleeding. She denies any other symptoms. She denies any syncope this was just a fall caused by her tripping. complaint: fall Onset (ago): hour(s) Fall from: standing Fall witnessed: yes, by family Place fall occurred: home Loss of consciousness: none Prolonged down time: no Symptoms prior to fall: none Context: tripped/slipped Location of injury: head Severity: mild Severity scale (1-10): 2 Quality: sharp Associated symptoms (after fall): denies Related Data Home Medications Medication Instructions Recorded Confirmed alprazolam 0.5 mg tablet 0.5 mg PO HS 10/08/21 05/25/22 amlodipine 10 mg tablet 10 mg PO DAILY 10/08/21 05/25/22 clopidogrel 75 mg tablet 75 mg PO DAILY 10/08/21 05/25/22 glimepiride 2 mg tablet 3 mg PO QAM 10/08/21 05/25/22 losartan 100 mg tablet 100 mg PO DAILY 10/08/21 05/25/22 metoprolol tartrate 100 mg tablet 100 mg PO BID 10/08/21 05/25/22 timolol maleate 0.5 % eye drops 1 drp EACH EYE QAM 10/08/21 05/25/22 ergocalciferol (vitamin D2) 1,250 1,250 mcg PO WEEKLY 05/13/22 05/25/22 mcg (50,000 unit) capsule levothyroxine 75 mcg tablet See Rx Instructions .Route .COMPLEX 05/13/22 05/25/22 clotrimazole 10 mg kirti 10 mg PO BID 05/25/22 05/25/22 escitalopram oxalate 10 mg tablet 10 mg PO DAILY 05/25/22 05/25/22 Allergies Allergy/AdvReac Type Severity Reaction Status Date / Time aspirin Allergy Mild Dizziness Verified 02/25/23 17:37 amoxicillin [From Augmentin] Allergy Anaphylaxis Verified 02/25/23 17:38 clavulanic acid Allergy Anaphylaxis Verified 02/25/23 17:38 [From Augmentin] Review of Systems Review of Systems: All systems reviewed & are unremarkable except as noted in HPI and below Constitutional: Constitutional: Reports as per HPI Eyes: Eyes: Reports no additional eye complaints ENT: Reports system reviewed and no additional complaints, except as documented Cardiovascular: Cardiovascular: Reports no additional cardiovascular complaints Respiratory: Respiratory: Reports no additional respiratory complaints Gastrointestinal: Gastrointestinal: Reports no additional gastrointestinal complaints Genitourinary: Genitourinary: Reports no additional female genitourinary complaints Musculoskeletal: Musculoskeletal: Reports no additional musculoskeletal complaints Integumentary/Breasts: Skin/Breast: Reports system reviewed and no additional complaints, except as docu Neurologic: Reports system reviewed and no additional complaints, except as documented Psychiatric: Psychiatric: Reports no additional psychiatric complaints Endocrine: Endocrine: Reports no additional endocrine complaints Hematologic/Lymphatic: Hematologic/Lymphatic: Reports no additional hematologic/lymphatic complaints Allergic/Immunologic: Allergic/Immunologic: Reports no additional allergic/immunologic complaints [facility] Past Medical History Medical History Smith's palsy Peripheral vascular disease Surgical History Surgical History H/O carotid endarterectomy H/O neck surgery Social History Social History Smoking status: Never smoker Second hand tobacco smoke exposure: Yes Alcohol intake: unknown Substance use: never Substance use type: does not use Lack of Transportation: No Lack of Food: Never True Current Housing: I Have Housing Concerned A
[2023-05-18 21:18] LABS: Appearance Urine Clear (Clear); Bilirubin Urine Negative (Negative); Blood Urine Negative (Negative); Color Urine Light Yellow (Yellow); Glucose Urine UA Negative (Negative); Ketones Urine Negative (Negative); Leukocyte Esterase Ur Trace LEU/UL (Negative); Nitrate Urine Negative (Negative); Protein Urine Trace (Negative); Urobilinogen Urine 0.2 mg/dL (0.2-1.0)
[2023-05-18 21:23] LABS: Add Urine Microscopic? YES; Bacteria Urine Trace /hpf; RBC Urine 0-2 /hpf (0-2); Squamous Epithelial Cell Urine Occasional /hpf (Few); WBC Urine 0-3 /hpf (0-3)
== END 2023-05-18 23:33 | disposition home or self-care (01) ==
PROVIDERS: Emergency Provider Family Medicine; PCP Internal Medicine
DX: S09.90XA Unspecified injury of head, initial encounter (principal); W01.198A Fall on same level from slipping, tripping and stumbling with subsequent striking against other object, initial encounter; Y92.009 Unspecified place in unspecified non-institutional (private) residence as the place of occurrence of the external cause
CPT/HCPCS: 70450; 73564; 81001; 99284

== ENCOUNTER 2023-08-14 16:21 | Outpatient (CLI) | payer MEDICARE, OTHER, SELFPAY ==
--- NOTE | ~2023-08-14 | XR_ITS ---
XR chest 2V Ordering provider: Nilesh Nuñez MD History: 87 years Female with . Dyspnea x2 months . Comparison: May 25, 2022 FINDINGS: MEDIASTINUM: The cardiac silhouette is not enlarged. LUNGS: No effusion or pneumothorax. Opacification in the left lung base is seen. Underlying fibrotic changes of the lungs are noted. OTHER: No free air under the diaphragm. Degenerative spine. IMPRESSION: Left basilar pneumonia. Bilateral interstitial changes suggestive of underlying fibrotic changes. Reviewed, dictated and finalized at location A.
[2023-08-14 16:56] LABS: Alanine Aminotransferase 19 U/L (14-59); Alkaline Phosphatase 92 U/L (46-116); Anion Gap 11 mmol/L (4-12); Aspartate Amino Transferase 16 U/L (15-37); Bilirubin,Total 0.2 mg/dL (0.00-1.00); Blood Urea Nitrogen 26 mg/dL (7-18); Calcium 9.7 mg/dL (8.5-10.1); Carbon Dioxide 27 mmol/L (21-32); Chloride 100 mmol/L (98-108); Estimated Glomerular Filt Rate 41; Glucose 207 mg/dL (70-99); NT Pro B Type Natriuretic Pept 816 pg/mL (0-450); Osmolality Calculated 296 mOsm/kg (285-295); Potassium 4.4 mmol/L (3.5-5.1); Sodium 138 mmol/L (136-145); Total Protein 7.7 g/dL (6.4-8.2)
== END 2023-08-14 16:22 | disposition home or self-care (01) ==
LOC: CHSIMG 16:22
PROVIDERS: PCP Internal Medicine; Visit Provider Internal Medicine
DX: R06.00 Dyspnea, unspecified (principal); J18.8 Other pneumonia, unspecified organism
CPT/HCPCS: 36415; 71046; 80053; 83880

== ENCOUNTER 2023-08-17 12:50 | Emergency (ER) | payer MEDICARE, OTHER, SELFPAY ==
--- NOTE | ~2023-08-17 | XR_ITS ---
XR chest 2V 08/17/2023 14:36 Indication: Shortness of breath Procedure: 2 view chest Comparison: 08/14/2023 Findings: Heart size normal. Stable coarse chronic interstitial lung disease, consistent with pulmona ry fibrosis. No focal air space disease, pulmonary edema, pleural effusion or suspected pneumothorax. Impression: 1: Chronic interstitial lung disease, consistent with pulmonary fibrosis. Reviewed, dictated and finalized at location B. Impression: 1: Chronic interstitial lung disease, consistent with pulmonary fibrosis.
--- NOTE | ~2023-08-17 | XR_ITS ---
EXAM: XR abdomen obstructive series DATE: 08/17/2023 14:36 HISTORY: N/Const x 3 days, HX asthma, HX hysterectomy . COMPARISON: None available. FINDINGS: Streaky and subsegmental airspace opacities in the bilateral lung bases with bilateral mil d costophrenic angle blunting. Normal bowel gas pattern. Enlarged liver. No abnormal abdominal calcif ication. Lumbar scoliosis and degenerative disc disease. Mild bilateral hip osteoarthritis. Surgical evaristo over the pelvis. Small surgical clips or biopsy markers over the left chest. IMPRESSION: Subsegmental bibasilar atelectasis/consolidation with possible small bilateral pleural ef fusions. No radiographic evidence of obstruction or ileus. Hepatomegaly. Reviewed, dictated and finalized at location K. IMPRESSION: Subsegmental bibasilar atelectasis/consolidation with possible smal l bilateral pleural effusions. No radiographic evidence of obstruction or ileus . Hepatomegaly.
[2023-08-17 12:50] VITALS: BP 165/75; PULSE 77; RESP 18; TEMP 36.4; O2SAT 94
--- NOTE | 2023-08-17 13:15 | ED.GENADULT ---
HPI - General Adult General Chief complaint: Nausea/Vomiting/Diarrhea Stated complaint: PNA/nausea Time Seen by Provider: 08/17/23 13:14 as per history of present illness. History of Present Illness HPI narrative: History of present illness: Informed is patient. Patient complains of nausea. She reports recently diagnosed with pneumonia and has been on Levaquin and oral steroid for that, she feels like the Levaquin is upsetting her stomach in SI she decided to come in. She has had no vomiting or diarrhea but has been nauseated. Problem located in general. It is like medication induced nausea. She does say at times she feels like she is constipated although she did have a bowel movement yesterday. Moderate severity. Associated symptoms: No reported high fever or chills. Has had minimal cough. At times she says she feels short of breath but denies chest pain. along with the oral antibiotic and steroid she has been getting home nebulizer treatments. Past medical history: Krk-[id number]-mcvrqkier diabetes, hypertension, asthma, breast cancer which has been treated Past surgical history: Breast, hysterectomy, appendectomy, carotid artery . Related Data Home Medications Medication Instructions Recorded Confirmed alprazolam 0.5 mg tablet 0.5 mg PO HS 10/08/21 08/17/23 amlodipine 10 mg tablet 10 mg PO DAILY 10/08/21 08/17/23 clopidogrel 75 mg tablet 75 mg PO DAILY 10/08/21 08/17/23 glimepiride 2 mg tablet 3 mg PO QAM 10/08/21 08/17/23 losartan 100 mg tablet 100 mg PO DAILY 10/08/21 08/17/23 metoprolol tartrate 100 mg tablet 100 mg PO BID 10/08/21 08/17/23 timolol maleate 0.5 % eye drops 1 drp EACH EYE QAM 10/08/21 08/17/23 ergocalciferol (vitamin D2) 1,250 1,250 mcg PO WEEKLY 05/13/22 08/17/23 mcg (50,000 unit) capsule levothyroxine 75 mcg tablet See Rx Instructions .Route .COMPLEX 05/13/22 08/17/23 clotrimazole 10 mg kirti 10 mg PO BID 05/25/22 05/25/22 escitalopram oxalate 10 mg tablet 10 mg PO DAILY 03/19/23 03/19/23 budesonide-formoterol HFA 160 2 puff inhalation BID 08/17/23 08/17/23 mcg-4.5 mcg/actuation aerosol inhaler Allergies Allergy/AdvReac Type Severity Reaction Status Date / Time aspirin Allergy Mild Dizziness Verified 08/17/23 13:16 amoxicillin [From Augmentin] Allergy Anaphylaxis Verified 08/17/23 15:22 clavulanic acid Allergy Anaphylaxis Verified 08/17/23 13:16 [From Augmentin] Review of Systems Review of Systems: REVIEW OF SYSTEMS- constitutional: No fevers, no chills, no sweats eye: No recent visual problems ENT: No ear pain, no nasal congestion, no sore throat respiratory: occasional shortness of breath, no cough cardiovascular: No chest pain, no palpitations, no syncope gastrointestinal: nausea, no vomiting, no diarrhea nahum/lymph: No bruising tendency, no swollen lymph glands endocrine: No excessive thirst, no excessive hunger muscle skeletal: No back pain, no neck pain, no joint pain, no muscle pain, no decreased range of motion integumentary: No rash, no pruritus, no abrasions neurologic: Alert and oriented x4 psychiatric: No anxiety, no depression [facility] Past Medical History Medical History Smith's palsy Peripheral vascular disease Surgical History Surgical History H/O carotid endarterectomy H/O neck surgery Social History Social History Smoking status: Never smoker Second hand tobacco smoke exposure: Yes Alcohol intake: unknown Substance use: never Substance use type: does not use Lack of Transportation: No Lack of Food: Never True Current Housing: I Have Housing Concerned About Future Housing: No Difficulty Paying Gas/Electric Bills: No Difficulty Paying for Meds: No Currently Unemployed: No Education: High School Diploma/GED Difficulty w/ Childcar
--- NOTE | 2023-08-17 13:24 | ECG_ITS ---
Test Date: 2023-08-17 13:33:44 Measurements Intervals [place] Rate: 75 P: 33 SC: 165 QRS: 51 QRSD: 109 T: 10 QT: 397 QTc: 443 Interpretive Statements SINUS RHYTHM WITH OCCASIONAL SUPRAVENTRICULAR PREMATURE COMPLEXES MODERATE INTRAVENTRICULAR CONDUCTION DELAY [105+ ms QRS DURATION, 80+ ms Q/S IN V1/V2, NO Q AND 60+ ms R IN I/aVL/V5/V6] NONSPECIFIC T-WAVE ABNORMALITY No previous ECG available for comparison Electronically Signed On 08-18-2023 10:39:51 CDT by Mayte Booker M.D.
[2023-08-17] MEDS: ONDANSETRON INJ 4 MG/2 ML VIAL IV PUSH ×2 (13:34→15:51)
[2023-08-17 13:56] LABS: Basophils Absolute Auto 0.04 K/mm3 (0.00-0.10); Basophils Percent Auto 0.3 % (0.0-1.0); Eosinophils Absolute Auto 0.06 K/mm3 (0.02-0.50); Eosinophils Percent Auto 0.5 % (1.0-6.0); Hematocrit 41.7 % (35.0-42.0); Hemoglobin 13.4 g/dL (11.7-13.8); Immature Granulocyte Absolute 0.04 K/mm3 (0.00-0.00); Immature Granulocyte Percent A 0.3 % (0.0-0.0); Lymphocytes Absolute Auto 2.39 K/mm3 (1.10-4.50); Lymphocytes Percent Auto 19.4 % (18.0-42.0); Mean Corpuscular HGB Conc 32.1 g/dL (32-36); Mean Corpuscular Hemoglobin 30.5 pg (27.0-31.0); Mean Corpuscular Volume 94.8 fL (78.0-102.0); Mean Platelet Volume 9.1 fl (9.2-11.8); Monocytes Absolute Auto 0.96 K/mm3 (0.10-0.90); Monocytes Percent Auto 7.8 % (2.0-11.0); Neutrophils Percent Auto 71.7 % (50.0-70.0); Platelet Count Result 395 K/mm3 (150-420); Red Cell Distribution Width 13.5 % (11.6-14.4); White Blood Count 12.3 K/mm3 (4.8-10.8)
[2023-08-17 13:57] LABS: HCO3 VBG 26.9 mEq/l (24.0-30.0); PCO2 VBG 38.3 mmHg (42.0-48.0); PO2 VBG 36.4 mmHg (35.0-45.0); pH VBG 7.46 (7.33-7.43)
[2023-08-17 13:59] LABS: Device NASAL CANNULA
[2023-08-17 14:20] VITALS: BP 150/77; PULSE 63; RESP 16; O2SAT 95
[2023-08-17 14:23] LABS: Alanine Aminotransferase 23 U/L (14-59); Alkaline Phosphatase 80 U/L (46-116); Anion Gap 10 mmol/L (4-12); Aspartate Amino Transferase 20 U/L (15-37); Bilirubin,Total 0.3 mg/dL (0.00-1.00); Blood Urea Nitrogen 23 mg/dL (7-18); Calcium 9.2 mg/dL (8.5-10.1); Carbon Dioxide 26 mmol/L (21-32); Chloride 98 mmol/L (98-108); Estimated CRCL calculation 32 ml/min; Estimated Glomerular Filt Rate 46; Glucose 65 mg/dL (70-99); Osmolality Calculated 279 mOsm/kg (285-295); Potassium 3.9 mmol/L (3.5-5.1); Sodium 134 mmol/L (136-145); Total Protein 7.7 g/dL (6.4-8.2); Troponin I 11.2 ng/L (0.00-60.4)
[2023-08-17 14:24] LABS: NT Pro B Type Natriuretic Pept 1042 pg/mL (0-450)
[2023-08-17 15:19] VITALS: BP 149/63; PULSE 71; RESP 16; O2SAT 96
[2023-08-17 16:17] VITALS: BP 131/60; PULSE 88; RESP 18; TEMP 37.1; O2SAT 96
== END 2023-08-17 16:17 | disposition home or self-care (01) ==
PROVIDERS: Emergency Provider Emergency Medicine; PCP Internal Medicine
DX: R11.0 Nausea (principal); E11.9 Type 2 diabetes mellitus without complications; I10 Essential (primary) hypertension; J45.909 Unspecified asthma, uncomplicated; Z85.3 Personal history of malignant neoplasm of breast; Z79.899 Other long term (current) drug therapy
CPT/HCPCS: 36415; 71046; 74019; 80053; 82803; 83880; 84484; 85025; 93005; 96374; 96376; 99284; J2405

== ENCOUNTER 2024-07-02 12:59 | Inpatient (IN) | payer MEDICARE, OTHER, SELFPAY ==
[2024-07-02] VITALS (13 sets, daily range): BP systolic 116–144; BP diastolic 55–74; PULSE 62–73; RESP 17–24; TEMP 35.9–36.8; O2SAT 88–98; BMI 33.1
--- NOTE | ~2024-07-02 | CT_ITS ---
EXAMINATION: CTA chest PE protocol DATE: 07/03/2024 09:55 INDICATION: Hypoxia. TECHNIQUE: Computed tomography (CT) pulmonary angiogram of the chest was performed with 100 mL Omnipa que-350 intravenous contrast. Additional 3D reconstructions utilizing coronal maximum intensity proje ction (MIP) were performed. Automated exposure control and iterative reconstruction technique were em ployed. The dose-length product was 716.31 mGy-cm. COMPARISON: 05/13/2022 FINDINGS: No pulmonary embolism. There is mosaic attenuation in both lungs with extensive groundglass opacities which are new since the prior study. Again seen is mild bronchiectasis. Minimal change in peripheral and basilar prominent irregular septal line thickening with some honeycombing at the bilateral lung bases consistent with usual interstitial pneumonia (UIP) pattern chronic interstitial lung disease. S mall calcified nodules in the right upper lobe along with calcified right hilar lymph nodes consisten t with old granulomatous disease. Mild cardiomegaly. Atherosclerotic coronary artery calcification. N o pericardial or pleural effusion. No significant change in a few mildly prominent but still normal-s ized likely reactive mediastinal lymph nodes. Thoracic aorta is normal in caliber with no dissection. Small sliding-type hiatal hernia. Visualized upper abdomen is unremarkable. Mild to moderate thoraci c spondylosis with bridging osteophytes at multiple levels consistent with diffuse idiopathic skeleta l hyperostosis (DISH). IMPRESSION: 1. No pulmonary embolism. 2. Usual interstitial pneumonia (UIP) pattern chronic interstitial lung disease with increasing round glass opacities throughout both lungs. This could be due to atelectasis related to suboptimal inspir atory effort, progression of the chronic interstitial lung disease, hypersensitivity pneumonitis, pul monary edema or pneumonia. 3. Small sliding-type hiatal hernia. Reviewed, dictated and finalized at location A. IMPRESSION: 1. No pulmonary embolism. 2. Usual interstitial pneumonia (UIP) pattern chronic interstitial lung disease with increasing round glass opacities throughout both lungs. This could be due to atelectasis related to suboptimal inspiratory effort, progression of the ch ronic interstitial lung disease, hypersensitivity pneumonitis, pulmonary edema or pneumonia. 3. Small sliding-type hiatal hernia.
--- NOTE | ~2024-07-02 | XR_ITS ---
Portable chest x-ray Comparison: 07/02/2024 Clinical History: Shortness of breath Findings: There is probable chronic interstitial disease. Mild interval improvement in groundglass o pacity from prior exam. Cardiomediastinal silhouette is stable. Bones and soft tissues are unremarka ble. Impression: Probable chronic interstitial disease. Interval improvement of groundglass opacity since prior exam. Reviewed, dictated and finalized at location . Impression: Probable chronic interstitial disease. Interval improvement of groundglass opac ity since prior exam.
--- NOTE | ~2024-07-02 | US_ITS ---
BILATERAL LOWER EXTREMITY VENOUS ULTRASOUND Ordering provider: Monie Wolf APRN History: . hypoxia/leg swelling/dimer elevated . Comparison: None. FINDINGS: RIGHT LOWER EXTREMITY VEINS: --COMMON FEMORAL: Patent and free of thrombus. Normal compressibility, phasic flow and augmentation. --PROXIMAL SUPERFICIAL FEMORAL: Patent and free of thrombus. Normal compressibility, phasic flow and augmentation. --DISTAL SUPERFICIAL FEMORAL: Patent and free of thrombus. Normal compressibility, phasic flow and au gmentation. --POPLITEAL: Patent and free of thrombus. Normal compressibility, phasic flow and augmentation. --POSTERIOR TIBIAL: Patent and free of thrombus. Normal compressibility, phasic flow and augmentation . LEFT LOWER EXTREMITY VEINS: --COMMON FEMORAL: Patent and free of thrombus. Normal compressibility, phasic flow and augmentation. --PROXIMAL SUPERFICIAL FEMORAL: Patent and free of thrombus. Normal compressibility, phasic flow and augmentation. --DISTAL SUPERFICIAL FEMORAL: Patent and free of thrombus. Normal compressibility, phasic flow and au gmentation. --POPLITEAL: Patent and free of thrombus. Normal compressibility, phasic flow and augmentation. --POSTERIOR TIBIAL: Patent and free of thrombus. Normal compressibility, phasic flow and augmentation . IMPRESSION: Negative bilateral lower extremity venous US. No deep vein thrombosis. Reviewed, dictated and finalized at location A.
--- NOTE | ~2024-07-02 | XR_ITS ---
EXAMINATION: XR chest 1V portable DATE: 07/02/2024 13:29 INDICATION: Cough and shortness of breath TECHNIQUE: frontal view of the chest was obtained. COMPARISON: Chest radiograph dated 08/17/2023 and chest radiograph and CT dated 05/13/2022 FINDINGS: No significant interval change in chronic peripheral and lower lung predominant coarse reticular opac ities in both lungs consistent with chronic interstitial lung disease. Difficult to exclude superimpo sed mild pulmonary edema or pneumonia. There are no definitively new opacities to more specifically s uggest this. No pleural effusion or pneumothorax. Heart size is normal. IMPRESSION: 1. Stable appearance of chronic interstitial lung disease with peripheral and basilar predominance. Reviewed, dictated and finalized at location A. IMPRESSION: 1. Stable appearance of chronic interstitial lung disease with peripheral and b asilar predominance.
--- OUTSIDE RECORDS SUMMARY | 2024-07-02 13:01 | XMS_ITS ---
Author Organization [facility] Address [address] [place], [place] [address] Care Team Providers Care Sheep Boner Name Role Phone OsmanyCHIOMA varghese Unavailable [phone] Nilesh Nuñez Unavailable Unavailable BIANCA MOISE Unavailable [phone] REASON FOR VISIT *General care Medications Medication SIG (Take, Route, Frequency, Duration) Notes Start Date End Date Status Advair HFA 115-21 MCG/ACT Inhalation for 30 Days Active amLODIPine Besylate 10 MG Oral for 90 Days Active Ventolin HFA 108 (90 Base) MCG/ACT Inhalation for 90 Days Activ e ALPRAZolam 0.5 MG Oral for 30 Days Active Losartan Potassium 100 MG Oral for 90 Days Active Clopidogrel Bisulfate 75 MG Oral for 90 Days Active Vital Signs Height 65.00 in 07/09/2023 Weight 195 lbs 07/09/2023 BMI 32.45 kg/m2 07/09/2023 Height-cm 165.10 cm 07/09/2023 Weight-kg 88.45 kg 07/09/2023 Encounters Encounter Location Date Provider Diagnosis [address] [id number] 07/09/2023 BIANCA MOISE Other hammer toe(s) (acquired), right foot M20.41 ; Tinea unguium B35.1 ; Other hammer toe(s) (acquired), left foot M20.42 ; Pain in right toe(s) M79.674 ; Pain in left toe(s) M79.675 ; 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 The patient was given education about shoe recommendations specific for the condition. The patient was educated about custom orthotics and how appropriate shoes and orthotics can prevent further worsening of the deformity. The patient was educated about how bad shoe habits can worsen the condition. NSAIDS, P.T., injections and other conservative treatments were discussed. Both surgical and non surgical treatments were discussed, but conservative options were emphasized. 07/09/2023 Tinea unguium (ICD-10 - B35.1) Aseptic debridement of elongated thickened nails x 10 using sterile nippers, nails were debrided in length and thickness by 30% utilizing a nail nipper without incident. The patient was educated regarding all treatment options that include topical and oral antifungal treatments. I discussed the options of taking a sample of the nail to confirm diagnosis. Nail clippings were not sent for pathology analysis. The patient was educated why and how the fungal infection evolved in their feet and the patient was given information regarding how to prevent further infection. The patient was told to keep feet dry and change socks. The patient was told to be careful with old shoes and excessive sweating. The patient was educated regarding both OTC and prescription treatments. 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 After removal of overlying extensive hyperkeratosis, healthy tissue was noted and care was taken to assure that no undermining or probing was present. It should be noted that no probing was noted and no infection or drainage was noted. 07/09/2023 Type 2 diabetes mellitus with diabetic peripheral angiopathy without gangrene (ICD-10 - E11.51) Patient educated on proper diabetic foot care and the importance of tight glycemic control in regards to the prevention of diabetic manifestations and symptomatology in lower extremity. Explained to patient the importance of keeping interdigital spaces dry, not walking bare foot, having supportive shoe gear, using moisturizer to skin on feet daily especially in winter months, and checking feet daily for any new lesions or areas suspicious of trauma infection or ulceration. Explained to patient to return to ED if any change in foot health associated with signs of systemic infection including but not limited to nausea, vomiting, fever. Plan Of Treatment Treatment Notes Assessment Notes Other hammer toe(s) (acquired), right fo ot The patient was educated regarding how to mechanically stabilize their deformity. The patient was given education about shoe recommendations specific for the condition. The patient was educated about custom orthotics and how appropriate shoes and orthotics can prevent further worsening of the deformity. The patient was educated about how bad shoe habits can worsen the condition. NSAIDS, P.T., injections and other conservative treatments were discussed. Both surgical and non surgical treatments were discussed, but conservative options were emphasized. Tinea unguium Aseptic debridement of elongated thickened nails x 10 using sterile nippers, nails were debrided in length and thickness by 30% utilizing a nail nipper without incident. The patient was educated regarding all treatment options that include topical and oral antifungal treatments. I discussed the options of taking a sample of the nail to confirm diagnosis. Nail clippings were not sent for pathology analysis. The patient was educated why and how the fungal infection evolved in their feet and the patient was given information regarding how to prevent further infection. The patient was told to keep feet dry and change socks. The patient was told to be careful with old shoes and excessive sweating. The patient was educated regarding both OTC and prescription treatments. 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 After removal of overlying extensive hyperkeratosis, healthy tissue was noted and care was taken to assure that no undermining or probing was present. It should be noted that no probing was noted and no infection or drainage was noted. Type 2 diabetes mellitus wit h diabetic peripheral angiopathy without gangrene Patient educated on proper diabetic foot care and the importance of tight glycemic control in regards to the prevention of diabetic manifestations and symptomatology in lower extremity. Explained to patient the importance of keeping interdigital spaces dry, not walking bare foot, having supportive shoe gear, using moisturizer to skin on feet daily especially in winter months, and checking feet daily for any new lesions or areas suspicious of trauma infection or ulceration. Explained to patient to return to ED if any change in foot health associated with signs of systemic infection including but not limited to nausea, vomiting, fever. Next Appt Details Follow Up: 3 Months, Reason: Progress Notes * TERA CARRENODOB:1935 (87 yo F)Acc No.[id number]:07/09/2023 Patient: Lucero TERA FU Provider: Mary Lou MOISE :1935 A ge:87 Y S ex:Female Date:07/09/2023 Address:[address] [place] [address] Subjective: * Chief Complaints: * 1 . *General care. * HPI: H PI: General care P atient presents to the office for diabetic foot care. Patient states that their nails are thickened, elongated and painful. Patient states that it is aggravated by shoe gear. Onset is gradual., Patient is taking prescription blood thinners., Date last seen by Dr. Nuñez was July., Initials As. * ROS: G eneral / Constitutional: Patient denies w eakness. R espiratory: Patient denies c hronic cough, shortness of breath, sputum production. C ardiovascular: Patient denies c hest pain, history of ID, irregular heartbeat. M usculoskeletal: Patient complains of h ammertoes, arch pain. ? P eripheral Vascular: Patient denies b lanching of skin, cold extremities, decreased sensation in extremities. S kin: Patient complains of f ungal nails, nail changes, calluses and corns. N eurologic: Patient denies d izziness, gait abnormality, headache. * Medical History: * Medications: T aking Advair HFA 115-21 MCG/ACT Aerosol Inhalation , Taking amLODIPine Besylate 10 MG Tablet Oral , Taking ALPRAZolam 0.5 MG Tablet Oral , Taking Losartan Potassium 100 MG Tablet Oral , Taking Ventolin HFA 108 (90 Base) MCG/ACT Aerosol Solution Inhalation , Taking Clopidogrel Bisulfate 75 MG Tablet Oral Objective: * Vitals: W t: 195 lbs, Wt-k.45 kg, Ht: 65.00 in, Ht-cm: 165.10 cm, BMI: 32.45 Index, Body Surface Area: 2.01. * Examination: P hysical Examination: V ascular: Dorsalis Pedis pulse noted at 1/4 right foot and 1/4 left foot and Posterior Tibial pulse noted at 1/4 right foot and 1/4 left foot, Capillary refill times noted to be less than three seconds x ten, Temperature gradient noted to be warm to cool to bilateral foot, pedal hair present to bilateral foot and no varicosities are noted Dermatologic: there are no open lesions, no signs of active clinical infection, no erythema noted, no ecchymoses, nails are elongated thickened and dystrophic with subungual debris x ten, hyperkeratotic tissue plantar fifth metatarsal head bilateral foot Musculoskeletal: there is pain to palpation onto nail plate x ten, no calf pain noted bilaterally, arch height noted at 2/5 non-weight bearing bilaterally, first metatarsophalangeal joint range of motion 30 deg non-weight bearing bilaterally, flexible fifth digit hammer toe deformity noted to bilateral foot reducible with kelikian push up test, pain to palpation sub fifth metatarsal head hyperkeratotic tissue bilateral foot Neurology: protective sensation intact to light touch bilateral digits one through five, vibratory sensation intact to first metatarsophalangeal joint bilaterally. Assessment: * Assessment: 1. T inea unguium - B35.1 (Primary) 2 . O ther hammer toe(s) (acquired), right foot - M20.41 3 . O ther hammer toe(s) (acquired), left foot - M20.42 4 . P ain in right toe(s) - M79.674 5 . P ain in left toe(s) - M79.675 6 . 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 A cquired keratosis [keratoderma] palmaris et plantaris - L85.1 8 . T ype 2 diabetes mellitus with diabetic peripheral angiopathy without gangrene - E11.51 Plan: * Treatment: 2. O ther hammer toe(s) (acquired), right foot Notes: The patient was educated regarding how to mechanically stabilize their deformity. The patient was given education about shoe recommendations specific for the condition. The patient was educated about custom orthotics and how appropriate shoes and orthotics can prevent further worsening of the deformity. The patient was educated about how bad shoe habits can worsen the condition. NSAIDS, P.T., injections and other conservative treatments were discussed. Both surgical and non surgical treatments were discussed, but conservative options were emphasized. 3. U nspecified atherosclerosis of tulalip arteries of extremities, bilateral legs Notes: Patient educated on risks and aggravating factors of PVD, including conservative treatment options such as a diet and exercise regimen to aid in slowing progression of vascular disease ? 4. A cquired keratosis [keratoderma] palmaris et plantaris Notes: Pre-ulcerative keratoderma debrided sharply down to the level of healthy tissue using a 15 blade. After removal of overlying extensive hyperkeratosis, healthy tissue was noted and care was taken to assure that no undermining or probing was present. It should be noted that no probing was noted and no infection or drainage was noted. 5. T ype 2 diabetes mellitus with diabetic peripheral angiopathy without gangrene Notes: Patient educated on proper diabetic foot care and the importance of tight glycemic control in regards to the prevention of diabetic manifestations and symptomatology in lower extremity. Explained to patient the importance of keeping interdigital spaces dry, not walking bare foot, having supportive shoe gear, using moisturizer to skin on feet daily especially in winter months, and checking feet daily for any new lesions or areas suspicious of trauma infection or ulceration. Explained to patient to return to ED if any change in foot health associated with signs of systemic infection including but not limited to nausea, vomiting, fever. * Procedure Codes: 1 1056 TRIM SKIN LESIONS, 2 TO 4, Modifiers: Q8 , 46017 DEBRIDE NAIL, 6 OR MORE, Modifiers: 59 , Q8 * Follow Up: 3 Months * Billing Information: * Visit Code: * Procedure Codes: 91798 TRIM SKIN LESIONS, 2 TO 4. Modifiers: Q8 34734 DEBRIDE NAIL, 6 OR MORE. Modifiers: 59, Q8 * Sign off status: Completed true * Provider: Mary Lou MOISE Date: 0 07/09/2023 Generated for Elizabeth warren/Ulises/Quoc on: 0 07/02/2024 01:01 PM CDT History and Physical Notes * HPI (History of Present Illness) Category Sub-Category Detail Notes Category Not es HPI General care Patient presents to the office for diabetic foot care. Patient states that their nails are thickened, elongated and painful. Patient states that it is aggravated by shoe gear. Onset is gradual., Patient is taking prescription blood thinners., Date last seen by Dr. Nuñez was July., Initials As Examination Category Sub-Category Detail Notes Category Not es Physical Examination Vascular: Dorsalis Pedis pulse noted at 1/4 right foot and 1/4 left foot and Posterior Tibial pulse noted at 1/4 right foot and 1/4 left foot, Capillary refill times noted to be less than three seconds x ten, Temperature gradient noted to be warm to cool to bilateral foot, pedal hair present to bilateral foot and no varicosities are noted Dermatologic: there are no open lesions, no signs of active clinical infection, no erythema noted, no ecchymoses, nails are elongated thickened and dystrophic with subungual debris x ten, hyperkeratotic tissue plantar fifth metatarsal head bilateral foot Musculoskeletal: there is pain to palpation onto nail plate x ten, no calf pain noted bilaterally, arch height noted at 2/5 non-weight bearing bilaterally, first metatarsophalangeal joint range of motion 30 deg non-weight bearing bilaterally, flexible fifth digit hammer toe deformity noted to bilateral foot reducible with kelikian push up test, pain to palpation sub fifth metatarsal head hyperkeratotic tissue bilateral foot Neurology: protective sensation intact to light touch bilateral digits one through five, vibratory sensation intact to first metatarsophalangeal joint bilaterally
--- OUTSIDE RECORDS SUMMARY | 2024-07-02 13:01 | XMS_ITS | Clinical Summary ---
Author Organization [facility] Address [facility] [place] [address] Care Team Providers Care Ssn/Ssbn Assistant Navigator Name Role Phone Unavailable Primary Care Provider Unavailabl e Immunizations Immunization Administration Dates Next Due MODERNA COVID-19 (12+) MRNA, LNP-S, PF, 100 MCG/ 0.5 ML DOSE 05/09/2020,04/11/2020 Social History Tobacco Use Types Packs/Day Years Used Date Smoking Tobacco: Never Assessed Comments Unknown Sex and Gender Information Value Date Recorded Sex Assigned at Not on file Legal Sex Female 8:28 PM CDT Gender Identity Not on file Sexual Orientation Not on file Plan of Treatment Health Maintenance Due Date Last Done Comments DTaP, Tdap and Td Vaccines ( 1 - Tdap) 10/31/1954 Zoster Vaccines (1 of 2) 1986 RSV Immunization or 60+ Years (1 - 1-dose 75+ series) 10/31/2011 Pneumococcal Vaccine: 50+ Years (2 of 2 - PPSV23) 01/13/2016 01/12/2015 COVID-19 Vaccine (3 - 2023-2 5 season) 2023 05/09/2020, 04/11/2020 Meningococcal B Vaccine Aged Out No l onger eligible based on patient's age to complete this topic Meningococcal Vaccine Aged Out No kerri gema eligible based on patient's age to complete this topic RSV Immunizations Under 20 Months Aged Out No longer eligible b ased on patient's age to complete this topic
--- OUTSIDE RECORDS SUMMARY | 2024-07-02 13:01 | XMS_ITS | Patient Health Record ---
Author Organization [facility] Address [address] [place], [place] [id number] Care Team Providers Care Gem Stone Cutter Name Role Phone OsmanyCHIOMA varghese Unavailable [phone] Nilesh Nuñez Unavailable Unavailable BIANCA MOISE Unavailable [phone] Allergies Allergen (clinical drug ingredient) Drug/Non Drug Allergy documented on EMR Reaction Allergy Type Onset Date Status aspirin Aspirin Unknown Drug Allergy 01/07/2013 active Reason For Referral No Information Medications Medication SIG (Take, Route, Frequency, Duration) Notes Start Date End Date Status amLODIPine Besylate 10 MG Oral for 90 Days Active Advair HFA 115-21 MCG/ACT Inhalation for 30 Days Active Losartan Potassium 100 MG Oral for 90 Days Active ALPRAZolam 0.5 MG Oral for 30 Days Active Clopidogrel Bisulfate 75 MG Oral for 90 Days Active Ventolin HFA 108 (90 Base) MCG/ACT Inhalation for 90 Days Activ e Immunizations Vaccine Route Administration Date Status Comme nts Influenza, high dose seasonal Unknown 12/12/2022 Admini stered Vital Signs Height-cm 165.10 cm 09/03/2023 Weight-kg 88.45 kg 09/03/2023 Height 65.00 in 09/03/2023 Weight 195 lbs 09/03/2023 BMI 32.45 kg/m2 09/03/2023 Encounters Encounter Location Date Provider Diagnosis [address] [id number] 07/09/2023 BIANCA MOISE Other hammer toe(s) (acquired), right foot M20.41 ; Tinea unguium B35.1 ; Other hammer toe(s) (acquired), left foot M20.42 ; Pain in right toe(s) M79.674 ; Pain in left toe(s) M79.675 ; Unspecified atherosclerosis of poarch arteries of extremities, bilateral legs I70.203 ; Acquired keratosis [keratoderma] palmaris et plantaris L85.1 and Type 2 diabetes mellitus with diabetic peripheral angiopathy without gangrene E11.51 [address] [address] [address] [place], [place] [id number] 09/03/2023 BIANCA MOISE Other hammer toe(s) (acquired), right foot M20.41 ; Tinea unguium B35.1 ; Other hammer toe(s) (acquired), left foot M20.42 ; Pain in right toe(s) M79.674 ; Pain in left toe(s) M79.675 ; Unspecified atherosclerosis of poarch arteries of extremities, bilateral legs I70.203 ; Acquired keratosis [keratoderma] palmaris et plantaris L85.1 and Type 2 diabetes mellitus with diabetic peripheral angiopathy without gangrene E11.51 Assessments Encounter Date Diagnosis (ICD Code) Assessment Notes Treatment Notes Treatment Clinical Notes Section Notes 07/09/2023 Tinea unguium (ICD-10 - B35.1) Aseptic [...] prescription treatments. 07/09/2023 Other hammer toe(s) (acquired), right foot [...] were discussed, but conservative options were emphasized. 09/03/2023 Tinea unguium (ICD-10 - B35.1) Aseptic debridement [...] educated regarding both OTC and prescription treatments. 09/03/2023 Other hammer toe(s) (acquired), right foot (ICD-10 [...] were discussed, but conservative options were emphasized. 09/03/2023 Other hammer toe(s) (acquired), left foot (ICD-10 - M20.42) 07/09/2023 Other hammer toe(s) (acquired), left foot (ICD-10 - M20.42) 07/09/2023 Pain in right toe(s) (ICD-10 - M79.674) 09/03/2023 Pain in right toe(s) (ICD-10 - M79.674) 09/03/2023 Pain in left toe(s) (ICD-10 - M79.675) 07/09/2023 Pain in left toe(s) (ICD-10 - M79.675) 07/09/2023 Unspecified atherosclerosis of poarch arteries of extremities, bilateral legs (ICD-10 - I70.203) Patient educated on risks and aggravating factors of PVD, including conservative treatment options such as a diet and exercise regimen to aid in slowing progression of vascular disease 09/03/2023 Unspecified atherosclerosis of poarch arteries of extremities, bilateral legs (ICD-10 - I70.203) Patient educated on risks and aggravating factors of PVD, including conservative treatment options such as a diet and exercise regimen to aid in slowing progression of vascular disease 09/03/2023 Acquired keratosis [keratoderma] palmaris et plantaris (ICD-10 [...] no infection or drainage was noted. 07/09/2023 Acquired keratosis [keratoderma] palmaris et plantaris [...] but not limited to nausea, vomiting, fever. 09/03/2023 Type 2 diabetes mellitus with diabetic peripheral [...] to nausea, vomiting, fever. Plan Of Treatment No Information Insurance Providers Payer Name Payer Address Payer Phone Subscriber Number Group Number Insured Name Patient Relationship to Insured Coverage Start Date Coverage End Date Medicare Part B [place] [address] [place] [address] [id number] TERA CARRENO Self - patient is the insured [employer] ([place]) [address] [place] [address] [id number] TERA CARRENO Self - patient is the insured
--- OUTSIDE RECORDS SUMMARY | 2024-07-02 13:01 | XMS_ITS ---
Author Organization [facility] Address [address] [place], [place] [id number] Care Team Providers Care Packing House Supervisor Name Role Phone OsmanyCHIOMA varghese Unavailable [phone] Nilesh Nuñez Unavailable Unavailable BIANCA MOISE Unavailable [phone] Allergies Allergen (clinical drug ingredient) Drug/Non Drug Allergy documented on EMR Reaction Allergy Type Onset Date Status aspirin Aspirin Unknown Drug Allergy 01/07/2013 active REASON FOR VISIT *General care Medications Medication SIG (Take, Route, Frequency, Duration) Notes Start Date End Date Status amLODIPine Besylate 10 MG Oral for 90 Days Active Advair HFA 115-21 MCG/ACT Inhalation for 30 Days Active ALPRAZolam 0.5 MG Oral for 30 Days Active Clopidogrel Bisulfate 75 MG Oral for 90 Days Active Ventolin HFA 108 (90 Base) MCG/ACT Inhalation for 90 Days Activ e Losartan Potassium 100 MG Oral for 90 Days Active Vital Signs Height 65.00 in 09/03/2023 Weight 195 lbs 09/03/2023 BMI 32.45 kg/m2 09/03/2023 Height-cm 165.10 cm 09/03/2023 Weight-kg 88.45 kg 09/03/2023 Encounters Encounter Location Date Provider Diagnosis [facility] [address] [place], [place] [id number] 09/03/2023 BIANCA MOIES Other hammer toe(s) (acquired), right foot M20.41 ; Tinea unguium B35.1 ; Other hammer toe(s) (acquired), left foot M20.42 ; Pain in right toe(s) M79.674 ; Pain in left toe(s) M79.675 ; 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 09/03/2023 Other hammer toe(s) (acquired), left foot (ICD-10 - M20.42) 09/03/2023 Pain in right toe(s) (ICD-10 - M79.674) 09/03/2023 Pain in left toe(s) (ICD-10 - M79.675) 09/03/2023 Unspecified atherosclerosis of gambell arteries of extremities, bilateral legs (ICD-10 - [...] and no infection or drainage was noted. 09/03/2023 Type 2 diabetes mellitus with diabetic [...] OTC and prescription treatments. Unspecified atherosclerosis of gambell arteries of extremities, bilateral legs Patient educated [...] Notes * TERA CARRENODOB:1935 (87 yo F)Acc No.[id number]:09/03/2023 Patient: TERA ORTIZ Provider: Mary Lou MOISE :1935 A ge:87 Y S ex:Female Date:09/03/2023 Address:[address] [place], [place] [id number] Subjective: * Chief Complaints: * 1 . *General care. * HPI: H PI: General care P atient presents to the office for diabetic foot care. Patient states that their nails are thickened, elongated and painful. Patient states that it is aggravated by shoe gear. Onset is gradual., Patient is taking prescription blood thinners., Date last seen by Dr. Nuñez was 08/26/2023. GUERLINE;mls. * ROS: G eneral / Constitutional: Patient denies w eakness. R espiratory: Patient denies c hronic cough, shortness of breath, sputum production. C ardiovascular: Patient denies c hest pain, history of ND, irregular heartbeat. M usculoskeletal: Patient complains of h ammertoes, arch pain. ? P eripheral Vascular: Patient denies b lanching of skin, cold extremities, decreased sensation in extremities. S kin: Patient complains of f ungal nails, nail changes, calluses and corns. N eurologic: Patient denies d izziness, gait abnormality, headache. * Medical History: * Family History: F ather: PRN - Father: :: Cancer,,known absent . M other: PRN - Mother: . B rother: SIB - Brother: :: Cancer,,known absent . S ister: SIB - Sister: . * Social History: M igrated Social History: M igrated Social History: Smoking Status : Never smoked , History of tobacco use :. * Medications: T aking Advair HFA 115-21 MCG/ACT Aerosol Inhalation , Taking amLODIPine Besylate 10 MG Tablet Oral , Taking ALPRAZolam 0.5 MG Tablet Oral , Taking Losartan Potassium 100 MG Tablet Oral , Taking Ventolin HFA 108 (90 Base) MCG/ACT Aerosol Solution Inhalation , Taking Clopidogrel Bisulfate 75 MG Tablet Oral * Allergies: A spirin: Allergy - Onset Date 01/07/2013. Objective: * Vitals: W t: 195 lbs, [...] M79.675 6 . U nspecified atherosclerosis of gambell arteries of extremities, bilateral legs - I70.203 [...] were emphasized. 3. U nspecified atherosclerosis of gambell arteries of extremities, bilateral legs Notes: Patient [...] LESIONS, 2 TO 4, Modifiers: Q8 , 22751 DEBRIDE NAIL, 6 OR MORE, Modifiers: 59 , Q8 * Follow Up: 3 Months * Billing Information: * Visit Code: * Procedure Codes: 23348 TRIM SKIN LESIONS, 2 TO 4. Modifiers: Q8 06699 DEBRIDE NAIL, 6 OR MORE. Modifiers: 59, Q8 * Sign off status: Completed true * Provider: Mary Lou MOISE Date: 0 09/03/2023 Generated for Elizabeth Elizabeth/Quoc on: 0 07/02/2024 01:01 PM CDT History [...] Date last seen by Dr. Nuñez was 08/26/2023. MA;mls Examination Category Sub-Category Detail Notes Category Not [...]
--- OUTSIDE RECORDS SUMMARY | 2024-07-02 13:01 | XMS_ITS ---
Author Organization [facility] Address [address] [place], [place] [address] Care Team Providers Care Broadcast Operations Engineer Name Role Phone TatiCHIOMA worrell Unavailable [phone] Nilesh Nuñez Unavailable Unavailable BIANCA MOISE Unavailable [phone] REASON FOR VISIT *General care Encounters Encounter Location Date Provider Diagnosis [address] [id number] 11/05/2023 BIANCA MOISE Plan Of Treatment No Information Progress Notes * TERA CARRENODOB:1935 (88 yo F)Acc No.[id number]:11/05/2023 Patient: TERA ORTIZ Provider: Mary Lou MOISE :1935 A ge:88 Y S ex:Female Date:11/05/2023 Address:[address] [place] [address] [address], [id number] Subjective: * Chief Complaints: * 1 . *General care. * Medical History: Objective: * Vitals: Assessment: Plan: * Treatment: * Billing Information: * Visit Code: * Procedure Codes: * Electronic signature of LUIS MOISE DPM on 07/02/2024 at 01:01 PM CDT Sign off status: Pending * Provider: Mary Lou MOISE Date: 0 11/05/2023 Generated for Katti ng/Faporterg/eTransmitting on: 0 07/02/2024 01:01 PM CDT
--- NOTE | 2024-07-02 13:22 | ECG_ITS ---
Test Date: 2024-07-02 13:33:56 Measurements Intervals [place] Rate: 66 P: -11 [place]: 169 QRS: -16 QRSD: 118 T: 59 QT: 430 QTc: 453 Interpretive Statements SINUS RHYTHM WITH SINUS ARRHYTHMIA INTRAVENTRICULAR CONDUCTION DELAY LEFT VENTRICULAR HYPERTROPHY WITH ST-T CHANGE CONSIDER INFERIOR INFARCT, AGE INDETERMINATE ANTERIOR INFARCT, AGE INDETERMINATE ABNORMAL ECG Compared to ECG 08/17/2023 13:33:44 NO SIGNIFICANT CHANGE Electronically Signed On 07-02-2024 15:46:55 CDT by Yousuf Jimenez D.O.
[2024-07-02 13:30] LABS: Add Urine Microscopic? YES; Appearance Urine Sl Cloudy (Clear); Bilirubin Urine Negative (Negative); Blood Urine Negative (Negative); Color Urine Brown (Yellow); Glucose Urine UA Negative (Negative); Ketones Urine Negative (Negative); Leukocyte Esterase Ur 3+ LEU/UL (Negative); Nitrate Urine Negative (Negative); Protein Urine Trace (Negative); Urobilinogen Urine 0.2 mg/dL (0.2-1.0); pH Urine 5.5 (5.0-8.0)
[2024-07-02 13:35] LABS: Bacteria Urine 3+ /hpf; Squamous Epithelial Cell Urine Moderate /hpf (Few); WBC Urine 31-50 /hpf (0-3)
[2024-07-02 14:04] LABS: Basophils Absolute Auto 0.06 K/mm3 (0.00-0.10); Basophils Percent Auto 0.7 % (0.0-1.0); Eosinophils Absolute Auto 0.19 K/mm3 (0.02-0.50); Eosinophils Percent Auto 2.2 % (1.0-6.0); Hematocrit 41.6 % (35.0-42.0); Immature Granulocyte Absolute 0.03 K/mm3 (0.00-0.00); Immature Granulocyte Percent A 0.4 % (0.0-0.0); Lymphocytes Absolute Auto 1.68 K/mm3 (1.10-4.50); Lymphocytes Percent Auto 19.6 % (18.0-42.0); Mean Corpuscular HGB Conc 31.3 g/dL (32-36); Mean Platelet Volume 9.6 fl (9.2-11.8); Monocytes Absolute Auto 0.59 K/mm3 (0.10-0.90); Monocytes Percent Auto 6.9 % (2.0-11.0); Neutrophils Absolute Auto 6.01 K/mm3 (1.70-7.20); Neutrophils Percent Auto 70.2 % (50.0-70.0); Platelet Count Result 366 K/mm3 (150-420); Red Cell Distribution Width 13.8 % (11.6-14.4); White Blood Count 8.6 K/mm3 (4.8-10.8)
--- OUTSIDE RECORDS SUMMARY | 2024-07-02 14:17 | XMS_ITS | Clinical Summary ---
Author Organization [facility] Address [facility] [place] [address] Care Team Providers Care Auto Claim Representative Name Role Phone Unavailable Primary Care Provider [...]
[2024-07-02 14:19] LABS: Partial Thromboplastin Time 29.8 Sec (23.9-30.70); Prothrombin Time 10.7 Seconds (9.50-12.1)
[2024-07-02] MEDS: FUROSEMIDE INJ 40 MG/4 ML VIAL IV PUSH (14:19)
[2024-07-02 14:25] LABS: Lactic Acid Reflex 2.6 mmol/L (0.4-2.0)
[2024-07-02 14:27] LABS: Alanine Aminotransferase 16 U/L (14-59); Albumin Level 2.8 g/dL (3.4-5.0); Alkaline Phosphatase 124 U/L (46-116); Anion Gap 8 mmol/L (4-12); Aspartate Amino Transferase 16 U/L (15-37); Bilirubin,Total 0.4 mg/dL (0.00-1.00); Blood Urea Nitrogen 24 mg/dL (7-18); Calcium 8.8 mg/dL (8.5-10.1); Carbon Dioxide 25 mmol/L (21-32); Chloride 102 mmol/L (98-108); Estimated CRCL calculation 35 ml/min; Estimated Glomerular Filt Rate 34; Glucose 254 mg/dL (70-99); Magnesium 2.1 mg/dL (1.8-2.4); NT Pro B Type Natriuretic Pept 1407 pg/mL (0-450); Osmolality Calculated 293 mOsm/kg (285-295); Sodium 135 mmol/L (136-145); Total Protein 7.6 g/dL (6.4-8.2); Troponin I 10.1 ng/L (0.00-60.4)
--- NOTE | 2024-07-02 14:39 | ED_ITS ---
HPI - SOB/Dyspnea General Chief Complaint: Shortness of Breath/Dyspnea Stated Complaint: Shortness of Breath Time Seen by Provider: 07/02/24 13:03 Source: patient and family Mode of arrival: wheelchair Limitations: physical limitation History of Present Illness HPI Narrative: this is a an 88-year-old female that presents from home after she had decreased O2 saturations and has been feeling short of breath over the last 2 to 3 days getting worse over last couple of hours. The patient is a DNR has a history of asthma, CHF, diabetes hypertension. Patient currently afebrile with no chest pain no abdominal pain does have some dysuria with no flank pain no hematuria no nausea vomiting. MD elicited complaint: shortness of breath Pertinent past history: asthma and congestive heart failure Onset (ago): day(s) Context: recent illness Severity: moderate Exacerbating factors: movement Known history of: asthma and congestive heart failure Related Data Home Medications ?Medication ?Instructions ?Recorded ?Confirmed ?Last Taken ?Type alprazolam 0.5 mg tablet 0.5 mg PO HS 10/08/21 08/17/23 Unknown History amlodipine 10 mg tablet 10 mg PO DAILY 10/08/21 08/17/23 Unknown History clopidogrel 75 mg tablet 75 mg PO DAILY 10/08/21 08/17/23 Unknown History glimepiride 2 mg tablet 3 mg PO QA 10/08/21 08/17/23 Unknown History losartan 100 mg tablet 100 mg PO DAILY 10/08/21 08/17/23 Unknown History metoprolol tartrate 100 mg tablet 100 mg PO BID 10/08/21 08/17/23 Unknown History timolol maleate 0.5 % eye drops 1 drp EACH EYE [facility] 10/08/21 08/17/23 Unknown History ergocalciferol (vitamin D2) 1,250 1,250 mcg PO WEEKLY 05/13/22 08/17/23 Unknown History mcg (50,000 unit) capsule levothyroxine 75 mcg tablet See Rx Instructions .Route .COMPLEX 05/13/22 08/17/23 Unknown History clotrimazole 10 mg kirti 10 mg PO BID 05/25/22 05/25/22 Unknown History escitalopram oxalate 10 mg tablet 10 mg PO DAILY 05/25/22 05/25/22 Unknown History budesonide-formoterol HFA 160 2 puff inhalation BID 08/17/23 08/17/23 Unknown History mcg-4.5 mcg/actuation aerosol inhaler Allergies Allergy/AdvReac Type Severity Reaction Status Date / Time aspirin Allergy Mild Dizziness Verified 07/02/24 13:28 amoxicillin (From Augmentin) Allergy Anaphylaxis Verified 07/02/24 13:28 clavulanic acid (From Allergy Anaphylaxis Verified 07/02/24 13:28 Augmentin) Review of Systems 2 Review of Systems: All systems reviewed & are unremarkable except as noted in HPI and below PMFSH Past Medical History Medical History Peripheral vascular disease Smith's palsy Surgical History Surgical History H/O neck surgery H/O carotid endarterectomy Social History Social History Smoking status: Never smoker Second hand tobacco smoke exposure: Yes Alcohol intake: unknown Substance use: never Substance use type: does not use Lack of Transportation: No Lack of Food: Never True Current Housing: I Have Housing Concerned About Future Housing: No Difficulty Paying Gas/Electric Bills: No Difficulty Paying for Meds: No Currently Unemployed: No Education: High School Diploma/GED Difficulty w/ Childcare or Family Care: No Spiritual care concerns: No Exam 2 Const: General: no acute distress and ill appearing Nutritional Appearance: obese Orientation/consciousness: patient oriented x3 Limitations: no limitations HENMT: Head: normal to inspection Chest: Chest palpation & inspection: normal inspection of the chest Resp: Effort & Inspection: normal respiratory effort Auscultation: crackles Cardio: Rate: regular rate Rhythm: regular rhythm GI: GI Palp: Yes Soft to palpation Auscultation: normal bowel sounds : General: Yes bladder normal to palpation Urinary Catheter: Urinary Catheter: patent and draining Back/Spine/Pelvis: Back: no CVA tenderness Neuro: General: patient oriented x3 Extrem: General: normal to inspection and edema Course Course Emergency Course: Patient had an EKG which shows that she has sinus rhythm with a rate of 86 her current O2 saturations 94% on 4L, patient has a a BNP that is elevated to a level of 1400 and receive 40mg of IV Lasix. Current blood pressure 144/62, labs performed and reviewed with a white count 8.6 with a creatinine of 1.45 lactic acid 2.6 patient has a urinalysis performed which shows is positive for the UTI and started on IV Levaquin. Vital Signs Vital signs: Vital Signs Temperature 36.8 C 07/02/24 13:05 Pulse Rate 66 07/02/24 13:05 Respiratory Rate 20 07/02/24 13:05 Blood Pressure 144/62 H 07/02/24 13:05 Pulse Oximetry 92 07/02/24 13:05 Oxygen Delivery Nasal Cannula 07/02/24 13:05 Oxygen Flow Rate 4 07/02/24 13:05 Temperature 36.8 C 07/02/24 13:05 Pulse Rate 66 07/02/24 13:05 Respiratory Rate 20 07/02/24 13:05 Blood Pressure 144/62 H 07/02/24 13:05 Pulse Oximetry 95 07/02/24 13:32 Oxygen Delivery Nasal Cannula 07/02/24 13:32 Oxygen Flow Rate 4 07/02/24 13:32 MDM - SOB/Dyspnea Lab Data 07/02/24 14:00 07/02/24 14:01 Labs: Lab Results 07/02/24 07/02/24 07/02/24 Range/Units 13:21 14:00 14:01 WBC 8.6 (4.8-10.8) K/mm3 RBC 4.20 (4.20-5.40) M/mm3 Hgb 13.0 (11.7-13.8) g/dL Hct 41.6 (35.0-42.0) % MCV 99.0 (78.0-102.0) fL MCH 31.0 (27.0-31.0) pg MCHC 31.3 L (32-36) g/dL RDW 13.8 (11.6-14.4) % Plt Count 366 (150-420) K/mm3 MPV 9.6 (9.2-11.8) fl Immature Gran % (Auto) 0.4 H (0.0-0.0) % Neut % (Auto) 70.2 H (50.0-70.0) % Lymph % (Auto) 19.6 (18.0-42.0) % [place] % (Auto) 6.9 (2.0-11.0) % Eos % (Auto) 2.2 (1.0-6.0) % Baso % (Auto) 0.7 (0.0-1.0) % Lymph # (Auto) 1.68 (1.10-4.50) K/mm3 [place] # (Auto) 0.59 (0.10-0.90) K/mm3 Eos # (Auto) 0.19 (0.02-0.50) K/mm3 Baso # (Auto) 0.06 (0.00-0.10) K/mm3 Abs Immat Gran (auto) 0.03 H (0.00-0.00) K/mm3 Absolute Neuts (auto) 6.01 (1.70-7.20) K/mm3 Absolute Nucleated RBC 0.00 (0.00-0.00) K/mm3 Nucleated RBC % 0.0 (0-0.0) % PT 10.7 (9.50-12.1) Seconds INR 1.0 APTT 29.8 (23.9-30.70) Sec Sodium 135 L (136-145) mmol/L Potassium 5.0 (3.5-5.1) mmol/L Chloride 102 (98-108) mmol/L Carbon Dioxide 25 (21-32) mmol/L Anion Gap 8 (4-12) mmol/L BUN 24 H (7-18) mg/dL Creatinine 1.45 H (0.55-1.02) mg/dL Estim Creat Clear Calc 35 ml/min Estimated GFR 34 L (59 - ) Glucose 254 H (70-99) mg/dL Calculated Osmolality 293 (285-295) mOsm/kg Lactic Acid 2.6 H (0.4-2.0) mmol/L Calcium 8.8 (8.5-10.1) mg/dL Magnesium 2.1 (1.8-2.4) mg/dL Total Bilirubin 0.4 (0.00-1.00) mg/dL AST 16 (15-37) U/L ALT 16 (14-59) U/L Alkaline Phosphatase 124 H (46-116) U/L Troponin I 10.1 (0.00-60.4) ng/L NT-Pro-B Natriuret Pep 1407 H (0-450) pg/mL Total Protein 7.6 (6.4-8.2) g/dL Albumin 2.8 L (3.4-5.0) g/dL Urine Color Brown A (Yellow) Urine Appearance Sl cloudy A (Clear) Urine pH 5.5 (5.0-8.0) Ur Specific Amity 1.020 (1.010-1.020) Urine Protein Trace H (Negative) Urine Glucose (UA) Negative (Negative) Urine Ketones Negative (Negative) Ur Blood (Man) Negative (Negative) Urine Nitrate Negative (Negative) Urine Bilirubin Negative (Negative) Urine Urobilinogen 0.2 (0.2-1.0) mg/dL Leukocyte Esterase Rfl 3+ H (Negative) BRIGITTE/UL Urine RBC 6-10 H (0-2) /hpf Urine WBC 31-50 H (0-3) /hpf Ur Squamous Epith Cells Moderate H (Few) /hpf Urine Bacteria 3+ H (None) /hpf Influenza A (RT-PCR) (Negative) Influenza B (RT-PCR) (Negative) RSV (RT-PCR) (Negative) SARS-CoV-2 RNA (RT-PCR) (Negative) 07/02/24 Range/Units 14:05 WBC (4.8-10.8) K/mm3 RBC (4.20-5.40) M/mm3 Hgb (11.7-13.8) g/dL Hct (35.0-42.0) % MCV (78.0-102.0) fL MCH (27.0-31.0) pg MCHC (32-36) g/dL RDW (11.6-14.4) % Plt Count (150-420) K/mm3 MPV (9.2-11.8) fl Immature Gran % (Auto) (0.0-0.0) % Neut % (Auto) (50.0-70.0) % Lymph % (Auto) (18.0-42.0) % [place] % (Auto) (2.0-11.0) % Eos % (Auto) (1.0-6.0) % Baso % (Auto) (0.0-1.0) % Lymph # (Auto) (1.10-4.50) K/mm3 [place] # (Auto) (0.10-0.90) K/mm3 Eos # (Auto) (0.02-0.50) K/mm3 Baso # (Auto) (0.00-0.10) K/mm3 Abs Immat Gran (auto) (0.00-0.00) K/mm3 Absolute Neuts (auto) (1.70-7.20) K/mm3 Absolute Nucleated RBC (0.00-0.00) K/mm3 Nucleated RBC % (0-0.0) % PT (9.50-12.1) Seconds INR APTT (23.9-30.70) Sec Sodium (136-145) mmol/L Potassium (3.5-5.1) mmol/L Chloride (98-108) mmol/L Carbon Dioxide (21-32) mmol/L Anion Gap (4-12) mmol/L BUN (7-18) mg/dL Creatinine (0.55-1.02) mg/dL Estim Creat Clear Calc ml/min Estimated GFR (59 - ) Glucose (70-99) mg/dL Calculated Osmolality (285-295) mOsm/kg Lactic Acid (0.4-2.0) mmol/L Calcium (8.5-10.1) mg/dL Magnesium (1.8-2.4) mg/dL Total Bilirubin (0.00-1.00) mg/dL AST (15-37) U/L ALT (14-59) U/L Alkaline Phosphatase (46-116) U/L Troponin I (0.00-60.4) ng/L NT-Pro-B Natriuret Pep (0-450) pg/mL Total Protein (6.4-8.2) g/dL Albumin (3.4-5.0) g/dL Urine Color (Yellow) Urine Appearance (Clear) Urine pH (5.0-8.0) Ur Specific Am[place] (1.010-1.020) Urine Protein (Negative) Urine Glucose (UA) (Negative) Urine Ketones (Negative) Ur Blood (Man) (Negative) Urine Nitrate (Negative) Urine Bilirubin (Negative) Urine Urobilinogen (0.2-1.0) mg/dL Leukocyte Esterase Rfl (Negative) BRIGITTE/UL Urine RBC (0-2) /hpf Urine WBC (0-3) /hpf Ur Squamous Epith Cells (Few) /hpf Urine Bacteria (None) /hpf Influenza A (RT-PCR) Negative (Negative) Influenza B (RT-PCR) Negative (Negative) RSV (RT-PCR) Negative (Negative) SARS-CoV-2 RNA (RT-PCR) Negative (Negative) Discharge Plan Discharge Clinical Impression: Acute UTI CHF (congestive heart failure) Qualifiers: Heart failure type: unspecified Heart failure chronicity: unspecified Qualified Code(s): I50.9 - Heart failure, unspecified Patient Disposition: Acute Care Hospital Condition: Guarded Prognosis Patient Language: Ethiopian Prescriptions: No Action levothyroxine 75 mcg tablet See Rx Instructions .ROUTE .COMPLEX Rx Instructions: TAKE 1 TABLET BY MOUTH EVERY DAY AND TAKE 1 EXTRA TAB ON THURSDAY ergocalciferol (vitamin D2) 1,250 mcg (50,000 unit) capsule 1,250 mcg PO WEEKLY Patient Comments: pt takes on Mondays ipratropium-albuterol 0.5 mg-3 mg(2.5 mg base)/3 mL solution for nebulization 3 ml inhalation Q4H PRN (Reason: shortness of breath) Qty: 180 1RF (DME) nebulizers Misc See Rx Instructions .Route Qty: 1 0RF Rx Instructions: As directed Probiotic 100 billion cell capsule 1 cap PO DAILY Qty: 30 2RF albuterol sulfate 90 mcg/actuation HFA aerosol inhaler 2 puff INHALATION Q6H PRN (Reason: Shortness Of Breath Or Wheezing) 30 Days Qty: 6.7 0RF Rx Instructions: 2 PUFFS WITH SPACER Q6H PRN SOB/COUGH clotrimazole 10 mg kirti 10 mg PO BID Rx Instructions: after using the steroid inhaler escitalopram oxalate 10 mg tablet 10 mg PO DAILY prochlorperazine maleate [Compazine] 10 mg tablet 10 mg PO Q6H PRN (Reason: nausea and vomiting) Qty: 14 0RF budesonide-formoterol 160-4.5 mcg/actuation HFA aerosol inhaler 2 puff INHALATION BID ondansetron 4 mg tablet,disintegrating 4 mg translingual Q6H Qty: 14 0RF metoprolol tartrate 100 mg tablet 100 mg PO BID clopidogrel 75 mg tablet 75 mg PO DAILY glimepiride 2 mg tablet 3 mg PO QAM Rx Instructions: 1.5 TABLETS (3MG) PO EVERY MORNING alprazolam 0.5 mg tablet 0.5 mg PO HS amlodipine 10 mg tablet 10 mg PO DAILY timolol maleate 0.5 % drops 1 drp EACH EYE [facility] losartan 100 mg tablet 100 mg PO DAILY Follow-up/Referrals: Nilesh Nuñez MD [Primary Care Provider] - Time of Disposition: 14:50
--- NOTE | 2024-07-02 14:48 | PC.NURSE ---
Patient is up to bedside camode.
[2024-07-02 14:51] LABS: Influenza A QL RT-PCR Negative (Negative); Influenza B QL RT-PCR Negative (Negative); RSV RNA, RT-PCR Negative (Negative); SARS-CoV-2 RNA PCR Negative (Negative)
[2024-07-02] MEDS: levoFLOXacin 500 MG/D5W 100 ML 500 MG/100 ML BAG 100 MG IVPB (14:58)
--- NOTE | 2024-07-02 15:16 | PC.NURSE ---
Patient arrived to unit in w/c via ED. Patient able to transfer 1 assist gait belt and walker from w/c to bed. Patient educated on general hospital policies, visiting hours, bed controls and use of call light as well as fall and infection precautions. Patient voices understanding.
[2024-07-02 16:09] LABS: Reflex Lactic Acid Yes or No Add Lactic
--- NOTE | 2024-07-02 16:27 | PC.NURSE ---
confirmed meds with pharmacist compared to what in system. Patient able to provide a list confirms she is not taking escitalopram, alendronate sodium and does not remember alprazolam but medication was picked up at pharmacy..
[2024-07-02 16:40] LABS: Glucose Point of Care 139 mg/dl (65-105)
[2024-07-02] MEDS: FUROSEMIDE INJ 20 MG/2 ML VIAL IV PUSH (16:56)
[2024-07-02] MEDS: ALBUTEROL SULFATE (*SP) INHALER 2 PUFF INHALATION (20:49)
[2024-07-02] MEDS: ALPRAZolam (*CRX) 0.5 MG TABLET PO (20:50)
[2024-07-02 21:35] LABS: Glucose Point of Care 94 mg/dl (65-105)
[2024-07-03] VITALS (9 sets, daily range): BP systolic 120–126; BP diastolic 54–56; PULSE 67–84; RESP 16–18; TEMP 36.5–36.6; O2SAT 90–97
[2024-07-03] MEDS: LEVOTHYROXINE SODIUM 75 MCG TABLET PO ×2 (06:08→06:09)
[2024-07-03] MEDS: ALBUTEROL SULFATE (*SP) INHALER 2 PUFF INHALATION ×2 (06:09→18:35)
[2024-07-03] MEDS: BUDESONIDE/FORMOTEROL (*SP) 160-4.5 MCG 6 GM INH 2 PUFF INHALATION ×2 (06:09→18:35)
--- NOTE | 2024-07-03 07:22 | PC.NURSE ---
Titrated patient from 2L O2 to 3L O2 due to SPO2 of 88.
[2024-07-03 07:58] LABS: Glucose Point of Care 152 mg/dl (65-105)
[2024-07-03] MEDS: ENOXAPARIN 30 MG/0.3 ML SYRINGE SUB-Q (08:23)
[2024-07-03] MEDS: TIMOLOL MALEATE 0.5% OP SOLN 5 ML BOTTLE 1 DROP EACH EYE (08:23)
[2024-07-03] MEDS: METOPROLOL TARTRATE 50 MG TAB 100 MG PO ×2 (08:24→21:02)
[2024-07-03] MEDS: CYANOCOBALAMIN 1,000 MCG TABLET 1000 MCG PO (08:25)
[2024-07-03] MEDS: LORATADINE 10 MG TABLET PO (08:25)
[2024-07-03] MEDS: ATORVASTATIN 10 MG TABLET PO (08:26)
[2024-07-03] MEDS: CLOPIDOGREL BISULFATE 75 MG TABLET PO (08:26)
[2024-07-03] MEDS: amLODIPine BESYLATE 5 MG TABLET 10 MG PO (08:27)
[2024-07-03] MEDS: FUROSEMIDE INJ 20 MG/2 ML VIAL IV PUSH ×2 (08:29→16:51)
[2024-07-03] MEDS: LOSARTAN POTASSIUM 50 MG TABLET 100 MG PO (08:29)
[2024-07-03 08:38] LABS: Basophils Absolute Auto 0.05 K/mm3 (0.00-0.10); Basophils Percent Auto 0.5 % (0.0-1.0); Eosinophils Absolute Auto 0.17 K/mm3 (0.02-0.50); Eosinophils Percent Auto 1.8 % (1.0-6.0); Hematocrit 43.2 % (35.0-42.0); Hemoglobin 13.5 g/dL (11.7-13.8); Immature Granulocyte Absolute 0.03 K/mm3 (0.00-0.00); Immature Granulocyte Percent A 0.3 % (0.0-0.0); Lymphocytes Absolute Auto 1.63 K/mm3 (1.10-4.50); Lymphocytes Percent Auto 16.9 % (18.0-42.0); Mean Corpuscular HGB Conc 31.3 g/dL (32-36); Mean Corpuscular Volume 99.3 fL (78.0-102.0); Mean Platelet Volume 9.5 fl (9.2-11.8); Monocytes Absolute Auto 0.66 K/mm3 (0.10-0.90); Monocytes Percent Auto 6.9 % (2.0-11.0); Neutrophils Absolute Auto 7.09 K/mm3 (1.70-7.20); Neutrophils Percent Auto 73.6 % (50.0-70.0); Platelet Count Result 403 K/mm3 (150-420); Red Blood Count 4.35 M/mm3 (4.20-5.40); Red Cell Distribution Width 13.7 % (11.6-14.4); White Blood Count 9.6 K/mm3 (4.8-10.8)
[2024-07-03 09:02] LABS: D Dimer 2.19 mg/L (0.19-0.50)
[2024-07-03 09:03] LABS: Alanine Aminotransferase 14 U/L (14-59); Albumin Level 2.8 g/dL (3.4-5.0); Alkaline Phosphatase 129 U/L (46-116); Anion Gap 8 mmol/L (4-12); Aspartate Amino Transferase 13 U/L (15-37); Bilirubin,Total 0.4 mg/dL (0.00-1.00); Blood Urea Nitrogen 21 mg/dL (7-18); Calcium 9.2 mg/dL (8.5-10.1); Carbon Dioxide 28 mmol/L (21-32); Chloride 102 mmol/L (98-108); Estimated CRCL calculation 28 ml/min; Estimated Glomerular Filt Rate 35; Glucose 181 mg/dL (70-99); Magnesium 1.8 mg/dL (1.8-2.4); Osmolality Calculated 294 mOsm/kg (285-295); Potassium 4.6 mmol/L (3.5-5.1); Sodium 138 mmol/L (136-145); Total Protein 7.8 g/dL (6.4-8.2)
[2024-07-03 09:06] LABS: Hemoglobin A1C 6.3 % (<5.7); Lactic Acid 2.6 mmol/L (0.4-2.0)
--- NOTE | 2024-07-03 09:50 | PC.NURSE ---
Today at 0909 lab called with critical result of D-dimer 2.19. CTO in the facility and made aware.
--- NOTE | 2024-07-03 10:25 | P.HP_ITS ---
H&P: HPI History of Present Illness Date/Time: 07/03/24 10:25 Chief Complaint: SOB/BLE swelling Narrative: Patient is an 88-year-old female with past medical history of breast cancer with previous radiation and chemotherapy, PVD, carotid stenosis with endarterectomy, diabetes, hypothyroidism, and hypertension who presented to the emergency department with complaints of worsening shortness of breath. Family's granddaughter also reported she had been doing foot care and noticed that she had had worsening bilateral lower extremity swelling. Patient reported shortness a breath is worse with exertion but is continuous. Patient states she had undergone breast cancer treatment back in 2006 but since then has not been following up with her care physicians or senior data warehouse developer. patient states she has a sedentary lifestyle and sleeps quite a bit due to her depression since losing her . upon arrival to the emergency department patient was found to acute respiratory failure with hypoxia with oxygen saturations in the mid 80s she was then placed on 4 L nasal cannula stabilized oxygen saturations in the mid 90's. patient's troponin was negative but BNP elevated greater than a 1000 and chest x-ray showing stable appearance chronic interstitial lung disease. patient also showed suspicion of urinary tract infection per urinalysis was initially given a dose of Levaquin in the ED transitioned to IV Rocephin pending culture. Patient also with acute kidney injury likely acute on chronic patient has been diagnosed underlying diabetes, hypertension heart disease likely contributing CR 1.41. other labs unremarkable and vital stable I did order a D-dimer on her arrival to the medical unit which was elevated at 2.1 stat CTA completed which showed no pulmonary embolism. patient denied any current chest pain, nausea, vomiting dizziness but did report urinary dysuria. she was admitted to the medical unit for further evaluation and treatment possible new onset CHF, acute respiratory failure with hypoxia, and UTI. Review of Systems Review of Systems: All systems reviewed & are unremarkable except as noted in HPI and below PMFSH Past Medical History Medical History Carotid stenosis Depression Hypothyroidism Diabetes mellitus Hypertension Peripheral vascular disease Smith's palsy Surgical History Surgical History H/O neck surgery H/O carotid endarterectomy Social History Social History Smoking status: Never smoker Second hand tobacco smoke exposure: Yes Alcohol intake: never Substance use: never Substance use type: does not use Do You Feel Safe in your Home?: Yes Lack of Transportation: No Lack of Food: Never True Current Housing: I Have Housing Concerned About Future Housing: No Difficulty Paying Gas/Electric Bills: No Difficulty Paying for Meds: No Currently Unemployed: No Education: Grade School Difficulty w/ Childcare or Family Care: No Spiritual care concerns: No Meds Home Medications and Allergies Home Medications ?Medication ?Instructions ?Recorded ?Confirmed ?Type alprazolam 0.5 mg tablet 0.5 mg PO HS 10/08/21 07/02/24 History amlodipine 10 mg tablet 10 mg PO DAILY 10/08/21 07/02/24 History clopidogrel 75 mg tablet 75 mg PO DAILY 10/08/21 07/02/24 History glimepiride 2 mg tablet 3 mg PO QAM 10/08/21 07/02/24 History losartan 100 mg tablet 100 mg PO DAILY 10/08/21 07/02/24 History metoprolol tartrate 100 mg tablet 100 mg PO BID 10/08/21 07/02/24 History timolol maleate 0.5 % eye drops 1 drp EACH EYE QAM 10/08/21 07/02/24 History ergocalciferol (vitamin D2) 1,250 1,250 mcg PO WEEKLY 05/13/22 07/02/24 History mcg (50,000 unit) capsule levothyroxine 75 mcg tablet See Rx Instructions .Route .COMPLEX 05/13/22 07/02/24 History albuterol sulfate 90 mcg/actuation 2 puff inhalation Q6H PRN 05/14/22 07/02/24 Rx aerosol inhaler Shortness Of Breath Or Wheezing 30 days #6.7 grams nebulizers #1 ea 05/14/22 07/02/24 Rx clotrimazole 10 mg kirti 10 mg PO BID 05/25/22 07/02/24 History budesonide-formoterol HFA 160 2 puff inhalation BID 08/17/23 07/02/24 History mcg-4.5 mcg/actuation aerosol inhaler Womens daily vitamins 07/02/24 07/02/24 History atorvastatin 10 mg tablet 10 mg PO EVERY OTHER DAY 07/02/24 07/02/24 History cholesterol loratadine 10 mg tablet (Claritin) 10 mg PO DAILY 07/02/24 07/02/24 History mecobalamin (vitamin B12) 1,000 1,000 mcg PO DAILY 07/02/24 07/02/24 History mcg chewable tablet (B12 Active) resveratrol 100 mg capsule 100 mg PO DAILY@0800 07/02/24 07/02/24 History Allergies Allergy/AdvReac Type Severity Reaction Status Date / Time aspirin Allergy Mild Dizziness Verified 07/02/24 13:28 amoxicillin (From Augmentin) Allergy Anaphylaxis Verified 07/02/24 13:28 clavulanic acid (From Allergy Anaphylaxis Verified 07/02/24 13:28 Augmentin) Vital Signs Vital Signs - 24 hr 07/02/24 13:00 07/02/24 13:00 07/02/24 13:05 Temperature 98.3 F Pulse Rate 64 66 Respiratory Rate 17 20 Blood Pressure 133/56 L 144/62 H Pulse Oximetry 88 L 88 L 92 Oxygen Delivery Nasal Cannula Nasal Cannula Nasal Cannula Oxygen Flow Rate 2 2 4 07/02/24 13:30 07/02/24 13:30 07/02/24 13:32 Temperature Pulse Rate 65 Respiratory Rate 17 Blood Pressure 135/56 L Pulse Oximetry 95 95 95 Oxygen Delivery Nasal Cannula Nasal Cannula Nasal Cannula Oxygen Flow Rate 4 4 4 07/02/24 14:00 07/02/24 14:10 07/02/24 14:15 Temperature Pulse Rate 65 62 66 Respiratory Rate 17 23 H 24 H Blood Pressure 134/62 Pulse Oximetry 98 89 L 95 Oxygen Delivery Nasal Cannula Oxygen Flow Rate 4 07/02/24 14:30 07/02/24 14:31 07/02/24 14:45 Temperature Pulse Rate 70 67 63 Respiratory Rate 23 H 22 H 22 H Blood Pressure 132/55 L Pulse Oximetry 96 94 Oxygen Delivery Nasal Cannula Oxygen Flow Rate 4 07/02/24 15:10 07/02/24 16:18 07/03/24 00:00 Temperature 98.3 F 96.6 F L 97.8 F Pulse Rate 73 68 75 Respiratory Rate 19 18 17 Blood Pressure 116/74 128/58 L 120/56 L Pulse Oximetry 96 94 96 Oxygen Delivery Nasal Cannula Nasal Cannula Nasal Cannula Oxygen Flow Rate 4 4 3 07/03/24 08:00 07/03/24 08:24 Temperature 97.7 F Pulse Rate 84 84 Respiratory Rate 18 Blood Pressure 126/54 L Pulse Oximetry 90 Oxygen Delivery Nasal Cannula Oxygen Flow Rate 3 Exam Const: General: comfortable and no acute distress Other: Pleasant female SOB at rest HENMT: Face/Nose/Sinus: Normal nares present Mouth: Yes moist mucous membranes Eyes: General: appearance normal, both eyes and all related structures Sclera: sclerae normal Pupils: Equal, round and reactive pupils present EOM: EOMs intact bilaterally Neck: Neck: supple and no JVD Resp: Auscultation: rhonchi left lower and right lower Cardio: Rate: regular rate Rhythm: regular rhythm GI: GI Palp: Yes Soft to palpation Auscultation: normal bowel sounds Skin: General skin exam: normal color and no rashes or lesions noted Wounds: no wounds Neuro: General: gait normal Speech: normal speech Motor exam (neuro): 5/5 motor strength present throughout Sensory Exam: normal sensation Extrem: General: edema (lower extremities 2+ pitting edema) bilateral Psych: Mental Status: mental status grossly normal Affect: Sad affect present Thought content: Yes Depressive thoughts present H&P: Results Labs Labs: Short CBC 07/02/24 07/03/24 Range/Units 14:00 08:29 WBC 8.6 9.6 (4.8-10.8) K/mm3 Hgb 13.0 13.5 (11.7-13.8) g/dL Hct 41.6 43.2 H (35.0-42.0) % Plt Count 366 403 (150-420) K/mm3 BMP 07/02/24 07/03/24 14:01 08:29 Sodium 135 L 138 Potassium 5.0 4.6 Chloride 102 102 Carbon Dioxide 25 28 BUN 24 H 21 H Creatinine 1.45 H 1.43 H Glucose 254 H 181 H Calcium 8.8 9.2 Cardiac Enzymes 07/02/24 Range/Units 14:01 Troponin I 10.1 (0.00-60.4) ng/L Liver Function 07/02/24 07/03/24 Range/Units 14:01 08:29 Total Bilirubin 0.4 0.4 (0.00-1.00) mg/dL AST 16 13 L (15-37) U/L ALT 16 14 (14-59) U/L Alkaline Phosphatase 124 H 129 H (46-116) U/L Albumin 2.8 L 2.8 L (3.4-5.0) g/dL Urine 07/02/24 Range/Units 13:21 Urine Color Brown A (Yellow) Urine Appearance Sl cloudy A (Clear) Urine pH 5.5 (5.0-8.0) Ur Specific [place] 1.020 (1.010-1.020) Urine Protein Trace H (Negative) Urine Glucose (UA) Negative (Negative) Imaging CT scan - chest: Radiologist's impression: EXAMINATION: CTA chest PE protocol DATE: 07/03/2024 09:55 INDICATION: Hypoxia. TECHNIQUE: Computed tomography (CT) pulmonary angiogram of the chest was performed with 100 mL Omnipaque-350 intravenous contrast. Additional 3D reconstructions utilizing coronal maximum intensity projection (MIP) were performed. Automated exposure control and iterative reconstruction technique were employed. The dose-length product was 716.31 mGy-cm. COMPARISON: 05/13/2022 FINDINGS: No pulmonary embolism. There is mosaic attenuation in both lungs with extensive groundglass opacities which are new since the prior study. Again seen is mild bronchiectasis. Minimal change in peripheral and basilar prominent irregular septal line thickening with some honeycombing at the bilateral lung bases consistent with usual interstitial pneumonia (UIP) pattern chronic interstitial lung disease. Small calcified nodules in the right upper lobe along with calcified right hilar lymph nodes consistent with old granulomatous disease. Mild cardiomegaly. Atherosclerotic coronary artery calcification. No pericardial or pleural effusion. No significant change in a few mildly prominent but still normal-sized likely reactive mediastinal lymph nodes. Thoracic aorta is normal in caliber with no dissection. Small sliding-type hiatal hernia. Visualized upper abdomen is unremarkable. Mild to moderate thoracic spondylosis with bridging osteophytes at multiple levels consistent with diffuse idiopathic skeletal hyperostosis (DISH). IMPRESSION: 1. No pulmonary embolism. 2. Usual interstitial pneumonia (UIP) pattern chronic interstitial lung disease with increasing round glass opacities throughout both lungs. This could be due to atelectasis related to suboptimal inspiratory effort, progression of the chronic interstitial lung disease, hypersensitivity pneumonitis, pulmonary edema or pneumonia. 3. Small sliding-type hiatal hernia. Assessment and Plan Assessment and plan (1) Acute respiratory failure with hypoxia: Code(s): J96.01 - Acute respiratory failure with hypoxia Status: Acute Assessment and Plan: patient presented with worsening shortness a breath was found to have acute respiratory failure with hypoxia saturations in the mid 80s was placed on 4 L nasal cannula which brought her oxygen saturations in the mid 90s. CTA was negative for PE however showing increasing ground-glass opacities throughout both lungs could be progressing chronic interstitial lung disease, hypersensitivity pneumonitis, pulmonary edema or pneumonia. Will treat multifocal for ILD progression with pneumonitis as well as CHF possible new onset due to elevated BNP and bilateral lower extremity swelling. * wean supplemental oxygen as tolerated currently on 4 L nasal cannula * may need home O2 evaluation prior to discharge (2) ILD (interstitial lung disease): Code(s): J84.9 - Interstitial pulmonary disease, unspecified Status: Acute Assessment and Plan: patient reported previous history of COPD but likely associated with ILD CTA showing progressive interstitial lung disease related to pneumonitis, pneumonia versus pulmonary edema * Bronchodilators. * incentive spirometry while awake. * steroids initiated 40mg daily * mucolytic * azithromycin 500 x 1 day/250 daily * supplemental oxygen therapy to maintain oxygen 92% currently 4L wean as tolerated * Keep BMI less than 25. * Follow-up with ventilation equipment tender as an outpatient would benefit from PFT testing (3) CHF (congestive heart failure): Qualifiers: Heart failure chronicity: unspecified Heart failure type: unspecified Qualified Code(s): I50.9 - Heart failure, unspecified Code(s): I50.9 - Heart failure, unspecified Status: Acute Assessment and Plan: patient denied any history of congestive heart failure presents today with elevated BNP CT with possible pulmonary edema hypoxic and bilateral leg swelling. continue with IV Lasix at this time pending echocardiogram for Thursday. Acute on chronic diastolic heart failure * continue IV Lasix b.i.d. * monitor renal function during diuresis * echocardiogram pending * EKG reviewed * continued beta-blockers and ARB * Daily weight. * elevate/James wrap legs if needed * Fall risk assessment. (4) Hypertension: Code(s): I10 - Essential (primary) hypertension Status: Acute Assessment and Plan: * continue metoprolol and losartan, * discontinued amlodipine which can cause worsening lower extremity swelling * BP per unit protocol (5) Diabetes mellitus: Code(s): E11.9 - Type 2 diabetes mellitus without complications Status: Acute Assessment and Plan: * A1c 6.3 * will hold her glimepiride * low-dose SSI * Accu-Cheks a.c. HS * diabetic diet * hypoglycemic protocol (6) MICHELLE (acute kidney injury): Code(s): N17.9 - Acute kidney failure, unspecified Status: Acute Assessment and Plan: patient with no previous history of chronic kidney disease however likely a stage III secondary to her diabetes, hypertension will need to monitor closely with diuresis. * Cr 1.41/GFR 35 * Avoid nephrotoxic drugs. * Monitor antihypertensive drug therapy. * Avoid NSAIDs. * Routine CMP monitoring GFR. * Monitor electrolytes especially potassium. (7) Elevated d-dimer: Code(s): R79.89 - Other specified abnormal findings of blood chemistry Status: Acute Assessment and Plan: patient presenting with acute respiratory failure with hypoxia and bilateral lower extremity swelling and patient reporting sedentary lifestyle * D-dimer elevated 2.19 * CTA negative for PE * venous Dopplers pending (8) Acute UTI: Code(s): N39.0 - Urinary tract infection, site not specified Status: Acute Assessment and Plan: patient reported she has had some dysuria thought it was from the pad she was wearing UA: brown, cloudy, leukocyte 3+, WBC 30 1-50, bacteria 3+ * on IV Rocephin pending cultures Plan Code status: Full code per patient DVT prophylaxis: Lovenox Stress ulcer prophylaxis: PT/OT notes: Pending Disposition: patient continues admission for acute respiratory failure with hypoxia secondary to possible new onset CHF, progressing interstitial lung disease with pneumonitis and UTI Quality VTE Prophylaxis VTE prophylaxis: pharmacologic ordered -Patient's previous records reviewed on admission -ER notes reviewed in detail on admission -discussed all findings and current treatment plan with patient/Family/POA -Consultations reviewed for recommendations -Patient's disposition for safe discharge discussed with case resource manager Dictation performed by [employer] direct speech recognition software, therefore lead pony rider variants and typographical errors may occur. Hospitalist [facility] Advance Care Plan I have confirmed that the patient's Advanced Care Plan is present, code status is documented, or surrogate decision maker is listed in patient medical record.: Yes Medication Reconciliation I have utilized all available resources to obtain, update and review the patients current medications (includes all prescriptions, OTC, herbals, cannabis, and nutritional supplements).: Yes The patient is not eligible for med reconciliation; the patient is in a emergent medical situation where delaying treatment would jeopardize the patients health.: No
[2024-07-03] MEDS: AZITHROMYCIN 250 MG TABLET 500 MG PO (11:43)
[2024-07-03] MEDS: predniSONE 20 MG TABLET 40 MG PO (11:43)
[2024-07-03] MEDS: guaiFENesin 12 HR 600 MG TABCR PO ×2 (11:43→21:05)
[2024-07-03] MEDS: IPRATROPIUM 0.5 MG/ALBUTEROL SULFATE 2.5 MG AMPUL.NEB 3 ML INHALATION ×2 (11:45→18:54)
--- NOTE | 2024-07-03 11:51 | PC.NURSE ---
1143 Called pharmacist Irish at [facility] r/t Clotrimazole [place] 10mg lozenges informing this medication was not in our [facility] and family had brought med from home. Description of medication given to Irish along with number on side of pill. Irish able to verify gen[place] and facility able to give when new order placed for NF. Called TRANSFORMER STOCK CLERK explained circumstances of this medication, TRANSFORMER STOCK CLERK informs she will change order in facility.
[2024-07-03] MEDS: INSULIN HUMAN LISPRO (*BKC) 1,000 UNITS/10 ML VIAL SUB-Q (11:57)
--- NOTE | 2024-07-03 14:23 | PC.NURSE ---
Label Printing Machinist attempting to titrate patient back down to 2L O2. Will recheck SPO2 in 30 min.
--- OUTSIDE RECORDS SUMMARY | 2024-07-03 15:44 | XMS_ITS ---
Author Organization [facility] Address [address] [place], [place] [id number] Care Team Providers Care Military Professional Name Role Phone OsmanyCHIOMA varghese Unavailable [phone] Nilesh Nuñez Unavailable Unavailable BIANCA MOISE Unavailable [phone] REASON FOR VISIT *General care Medications Medication [...] 07/09/2023 Encounters Encounter Location Date Provider Diagnosis [address] [id number] 07/09/2023 BIANCA MOISE Other hammer toe(s) (acquired), right foot M20.41 ; Tinea unguium B35.1 ; Other hammer toe(s) (acquired), left foot M20.42 ; Pain in right toe(s) M79.674 ; Pain in left toe(s) M79.675 ; Unspecified atherosclerosis of [place] arteries of extremities, bilateral legs I70.203 ; [...] (ICD-10 - M79.675) 07/09/2023 Unspecified atherosclerosis of [place] arteries of extremities, bilateral legs (ICD-10 - [...] OTC and prescription treatments. Unspecified atherosclerosis of [place] arteries of extremities, bilateral legs Patient educated [...] Notes * TERA CARRENODOB:1935 (87 yo F)Acc No.[id number]:07/09/2023 Patient: Lucero TERA FU Provider: Mary Lou MOISE :1935 A ge:87 Y S ex:Female Date:07/09/2023 Address:[address] [place] [address] Subjective: * Chief Complaints: * 1 . [...] Patient denies c hest pain, history of NV, irregular heartbeat. M usculoskeletal: Patient complains of [...] M79.675 6 . U nspecified atherosclerosis of [place] arteries of extremities, bilateral legs - I70.203 [...] were emphasized. 3. U nspecified atherosclerosis of [place] arteries of extremities, bilateral legs Notes: Patient [...] LESIONS, 2 TO 4, Modifiers: Q8 , 78919 DEBRIDE NAIL, 6 OR MORE, Modifiers: 59 , Q8 * Follow Up: 3 Months * Billing Information: * Visit Code: * Procedure Codes: 74228 TRIM SKIN LESIONS, 2 TO 4. Modifiers: Q8 45436 DEBRIDE NAIL, 6 OR MORE. Modifiers: 59, Q8 * Sign off status: Completed true * Provider: Mary Lou MOISE Date: 0 07/09/2023 Generated for Elizabeth warren/Ulises/Quoc on: 0 07/03/2024 03:43 PM CDT History and Physical Notes * [...]
--- OUTSIDE RECORDS SUMMARY | 2024-07-03 15:44 | XMS_ITS | Clinical Summary ---
Author Organization [facility] Address [facility] [place] [address] Care Team Providers Care Metal Rolling Mill Operator Name Role Phone Unavailable Primary Care Provider [...]
--- OUTSIDE RECORDS SUMMARY | 2024-07-03 15:44 | XMS_ITS | Patient Health Record ---
Author Organization [facility] Address [address] [place], [place] [id number] Care Team Providers Care Grinder Watch Parts Name Role Phone OsmanyCHIOMA varghese Unavailable [phone] Nilesh Nuñez Unavailable Unavailable BIANCA MOISE Unavailable [phone] Allergies Allergen (clinical drug ingredient) Drug/Non Drug [...] 09/03/2023 Encounters Encounter Location Date Provider Diagnosis [address] [id number] 07/09/2023 BIANCA MOISE Other hammer toe(s) (acquired), right foot M20.41 ; Tinea unguium B35.1 ; Other hammer toe(s) (acquired), left foot M20.42 ; Pain in right toe(s) M79.674 ; Pain in left toe(s) M79.675 ; Unspecified atherosclerosis of [place] arteries of extremities, bilateral legs I70.203 ; Acquired keratosis [keratoderma] palmaris et plantaris L85.1 and Type 2 diabetes mellitus with diabetic peripheral angiopathy without gangrene E11.[address] [place], [place] [id number] 09/03/2023 BIANCA MOISE Other hammer toe(s) (acquired), right foot M20.41 ; Tinea unguium B35.1 ; Other hammer toe(s) (acquired), left foot M20.42 ; Pain in right toe(s) M79.674 ; Pain in left toe(s) M79.675 ; Unspecified atherosclerosis of [place] arteries of extremities, bilateral legs I70.203 ; [...] (ICD-10 - M79.675) 07/09/2023 Unspecified atherosclerosis of [place] arteries of extremities, bilateral legs (ICD-10 - I70.203) Patient educated on risks and aggravating factors of PVD, including conservative treatment options such as a diet and exercise regimen to aid in slowing progression of vascular disease 09/03/2023 Unspecified atherosclerosis of [place] arteries of extremities, bilateral legs (ICD-10 - [...] Date Coverage End Date Medicare Part B [place] [address] [place] [address] [id number] TERA CARRENO Self - patient is the insured [employer] ([place]) [address] [place] [address] [phone] [id number] TERA CARRENO Self - patient is the insured
--- OUTSIDE RECORDS SUMMARY | 2024-07-03 15:44 | XMS_ITS ---
Author Organization [facility] Address [address] [place], [place] [id number] Care Team Providers Care Material Hauler Name Role Phone OsmanyCHIOMA varghese Unavailable [phone] Nilesh Nuñez Unavailable Unavailable BIANCA MOISE Unavailable [phone] Allergies Allergen (clinical drug ingredient) Drug/Non Drug [...] 09/03/2023 Encounters Encounter Location Date Provider Diagnosis [address] [place], [place] [id number] 09/03/2023 BIANCA MOISE Other hammer toe(s) (acquired), right foot M20.41 ; Tinea unguium B35.1 ; Other hammer toe(s) (acquired), left foot M20.42 ; Pain in right toe(s) M79.674 ; Pain in left toe(s) M79.675 ; Unspecified atherosclerosis of [place] arteries of extremities, bilateral legs I70.203 [...] (ICD-10 - M79.675) 09/03/2023 Unspecified atherosclerosis of [place] arteries of extremities, bilateral legs (ICD-10 [...] OTC and prescription treatments. Unspecified atherosclerosis of [place] arteries of extremities, bilateral legs Patient [...] Notes * TERA CARRENODOB:1935 (87 yo F)Acc No.[id number]:09/03/2023 Patient: TERA ORTIZ Provider: Mary Lou MOISE :1935 A ge:87 Y S ex:Female Date:09/03/2023 Address:[address] [place], [place] [id number] Subjective: * Chief Complaints: * 1 . [...] Patient denies c hest pain, history of [place], irregular heartbeat. M usculoskeletal: Patient complains of [...] M79.675 6 . U nspecified atherosclerosis of [place] arteries of extremities, bilateral legs - [...] were emphasized. 3. U nspecified atherosclerosis of [place] arteries of extremities, bilateral legs Notes: [...] LESIONS, 2 TO 4, Modifiers: Q8 , 77622 DEBRIDE NAIL, 6 OR MORE, Modifiers: 59 , Q8 * Follow Up: 3 Months * Billing Information: * Visit Code: * Procedure Codes: 31782 TRIM SKIN LESIONS, 2 TO 4. Modifiers: Q8 16910 DEBRIDE NAIL, 6 OR MORE. Modifiers: 59, Q8 * Sign off status: Completed true * Provider: Mary Lou MOISE Date: 0 09/03/2023 Generated for Elizabeth Elizabeth/Quoc on: 0 07/03/2024 03:44 PM CDT History and Physical Notes * [...]
--- OUTSIDE RECORDS SUMMARY | 2024-07-03 15:44 | XMS_ITS ---
Author Organization [facility] Address [address] [place], [place] [id number] Care Team Providers Care Silviculture Teacher Name Role Phone TatiCHIOMA worrell Unavailable [phone] Nilesh Nuñez Unavailable Unavailable BIANCA MOISE Unavailable [phone] REASON FOR VISIT *General care Encounters Encounter Location Date Provider Diagnosis [address] [id number] 11/05/2023 BIANCA MOISE Plan Of Treatment No Information Progress Notes * TERA CARRENODOB:1935 (88 yo F)Acc No.[id number]:11/05/2023 Patient: TERA ORTIZ Alina Provider: Mary Lou MOISE :1935 A ge:88 Y S ex:Female Date:11/05/2023 Address:[address] [place] [address] [address], [id number] Subjective: * Chief Complaints: * 1 . *General care. * Medical History: Objective: * Vitals: Assessment: Plan: * Treatment: * Billing Information: * Visit Code: * Procedure Codes: * Electronic signature of LUIS MOISE DPM on 07/03/2024 at 03:44 PM CDT Sign off status: Pending * Provider: Mary Lou MOISE Date: 0 11/05/2023 Generated for Katti ng/Faporterg/eTransmitting on: 0 07/03/2024 03:44 PM CDT
[2024-07-03 16:40] LABS: Glucose Point of Care 176 mg/dl (65-105)
[2024-07-03 16:40] LABS: Glucose Point of Care 216 mg/dl (65-105)
--- NOTE | 2024-07-03 16:57 | PC.NURSE ---
Patient SPO2 checked x 2 since titration and SPO2 at 94% both times. Patient changed to inpatient at 1555.
--- NOTE | 2024-07-03 17:16 | PC.NURSE ---
Patient changed to inpatient status today at 1555.
[2024-07-03] MEDS: CLOTRIMAZOLE 10 MG TROC PO (18:35)
[2024-07-03] MEDS: ALPRAZolam (*CRX) 0.5 MG TABLET PO (21:05)
[2024-07-03 21:28] LABS: Glucose Point of Care 241 mg/dl (65-105)
[2024-07-04] VITALS (16 sets, daily range): BP systolic 118–129; BP diastolic 44–54; PULSE 65–84; RESP 14–20; TEMP 36.3–36.6; O2SAT 91–98
[2024-07-04] MEDS: IPRATROPIUM 0.5 MG/ALBUTEROL SULFATE 2.5 MG AMPUL.NEB 3 ML INHALATION ×4 (00:23→19:12)
[2024-07-04 05:26] LABS: Basophils Absolute Auto 0.02 K/mm3 (0.00-0.10); Basophils Percent Auto 0.2 % (0.0-1.0); Eosinophils Absolute Auto 0.04 K/mm3 (0.02-0.50); Eosinophils Percent Auto 0.4 % (1.0-6.0); Hematocrit 37.8 % (35.0-42.0); Hemoglobin 11.8 g/dL (11.7-13.8); Immature Granulocyte Absolute 0.04 K/mm3 (0.00-0.00); Immature Granulocyte Percent A 0.4 % (0.0-0.0); Lymphocytes Absolute Auto 1.97 K/mm3 (1.10-4.50); Lymphocytes Percent Auto 18.3 % (18.0-42.0); Mean Corpuscular HGB Conc 31.2 g/dL (32-36); Mean Corpuscular Hemoglobin 30.7 pg (27.0-31.0); Mean Corpuscular Volume 98.4 fL (78.0-102.0); Mean Platelet Volume 9.3 fl (9.2-11.8); Monocytes Absolute Auto 0.59 K/mm3 (0.10-0.90); Monocytes Percent Auto 5.5 % (2.0-11.0); Neutrophils Absolute Auto 8.12 K/mm3 (1.70-7.20); Neutrophils Percent Auto 75.2 % (50.0-70.0); Platelet Count Result 364 K/mm3 (150-420); Red Blood Count 3.84 M/mm3 (4.20-5.40); Red Cell Distribution Width 13.6 % (11.6-14.4); White Blood Count 10.8 K/mm3 (4.8-10.8)
[2024-07-04 05:41] LABS: Alanine Aminotransferase 11 U/L (14-59); Albumin Level 2.5 g/dL (3.4-5.0); Alkaline Phosphatase 100 U/L (46-116); Anion Gap 8 mmol/L (4-12); Aspartate Amino Transferase < 10 U/L (15-37); Bilirubin,Total 0.3 mg/dL (0.00-1.00); Blood Urea Nitrogen 34 mg/dL (7-18); Calcium 8.6 mg/dL (8.5-10.1); Carbon Dioxide 25 mmol/L (21-32); Chloride 105 mmol/L (98-108); Estimated CRCL calculation 29 ml/min; Estimated Glomerular Filt Rate 37; Glucose 126 mg/dL (70-99); Osmolality Calculated 295 mOsm/kg (285-295); Potassium 4.2 mmol/L (3.5-5.1); Sodium 138 mmol/L (136-145); Total Protein 6.6 g/dL (6.4-8.2)
[2024-07-04] MEDS: LEVOTHYROXINE SODIUM 75 MCG TABLET PO (06:43)
[2024-07-04] MEDS: ALBUTEROL SULFATE (*SP) INHALER 2 PUFF INHALATION (06:43)
[2024-07-04] MEDS: BUDESONIDE/FORMOTEROL (*SP) 160-4.5 MCG 6 GM INH 2 PUFF INHALATION ×2 (06:43→19:17)
[2024-07-04] MEDS: CLOTRIMAZOLE 10 MG TROC PO ×2 (06:44→19:12)
[2024-07-04] MEDS: predniSONE 20 MG TABLET 40 MG PO (08:20)
--- NOTE | 2024-07-04 08:46 | P.PNIM_ITS ---
Progress Note: A&P Assessment and Plan (1) Acute respiratory failure with hypoxia: Code(s): J96.01 - Acute respiratory failure with hypoxia Status: Acute Assessment and Plan: patient presented with worsening shortness a breath was found to have acute respiratory failure with hypoxia saturations in the mid 80s was placed on 4 L nasal cannula which brought her oxygen saturations in the mid 90s. CTA was ne gative for PE however showing increasing ground-glass opacities throughout both lungs could be progressing chronic interstitial lung disease, hypersensitivity pneumonitis, pulmonary edema or pneumonia. Will treat multifocal for ILD progression with pneumonitis as well as CHF possible new onset due to elevated BNP and bilateral lower extremity swelling. * wean supplemental oxygen as tolerated weaned to 2L * may need home O2 evaluation prior to discharge (2) ILD (interstitial lung disease): Code(s): J84.9 - Interstitial pulmonary disease, unspecified Status: Acute Assessment and Plan: patient reported she has been by oncologist since likely secondary to radiation/chemo ILD CTA showing progressive interstitial lung disease related to pneumonitis, pneumonia versus pulmonary edema * Bronchodilators. * incentive spirometry while awake. * steroids initiated 40mg daily * mucolytic * azithromycin 500 x 1 day/250 daily * supplemental oxygen therapy to maintain oxygen 92% weaned to 2L * Keep BMI less than 25. * Follow-up with corporate travel counselor as an outpatient would benefit from PFT testing (3) CHF (congestive heart failure): Qualifiers: Heart failure chronicity: unspecified Heart failure type: unspecified Qualified Code(s): I50.9 - Heart failure, unspecified Code(s): I50.9 - Heart failure, unspecified Status: Acute Assessment and Plan: patient denied any history of congestive heart failure presents today with elevated BNP CT with possible pulmonary edema hypoxic and bilateral leg swelling. continue with IV Lasix at this time pending echocardiogram for Thursday. patient will likely need discharged on oral Lasix family and patient aware they need to follow-up with cardiology outpatient. Patient does express a lot of grief since the passing of her and failed to follow-up with Cardiology after his passing. She has no Echo on file questioning the potential for Takotsubo cardiomyopathy, will evaluate once Echo is Interpreted. * continue IV Lasix b.i.d. 20mg * monitor renal function during diuresis * echocardiogram pending 07/05/2024 * EKG reviewed * continued beta-blockers and ARB * Daily weight. * elevate/James wrap legs if needed * Fall risk assessment. (4) Hypertension: Code(s): I10 - Essential (primary) hypertension Status: Acute Assessment and Plan: BP in good parameters even with The discontinuation of amlodipine * continue metoprolol and losartan, * discontinued amlodipine which can cause worsening lower extremity swelling * BP per unit protocol (5) Diabetes mellitus: Code(s): E11.9 - Type 2 diabetes mellitus without complications Status: Acute Assessment and Plan: * A1c 6.3 * will hold her glimepiride * low-dose SSI * Accu-Cheks a.c. HS * diabetic diet * hypoglycemic protocol (6) MICHELLE (acute kidney injury): Code(s): N17.9 - Acute kidney failure, unspecified Status: Acute Assessment and Plan: patient with no previous history of chronic kidney disease however likely a stage III secondary to her diabetes, hypertension will need to monitor closely with diuresis. Cr improving slowly * Cr 1.41/GFR 35 POA * Avoid nephrotoxic drugs. * Monitor antihypertensive drug therapy. * Avoid NSAIDs. * Routine CMP monitoring GFR. * Monitor electrolytes especially potassium. (7) Elevated d-dimer: Code(s): R79.89 - Other specified abnormal findings of blood chemistry Status: Ruled-out Assessment and Plan: patient presenting with acute respiratory failure with hypoxia and bilateral lower extremity swelling and patient reporting sedentary lifestyle * D-dimer elevated 2.19 * CTA negative for PE * venous Dopplers negative for DVT (8) Acute UTI: Code(s): N39.0 - Urinary tract infection, site not specified Status: Acute Assessment and Plan: patient reported she has had some dysuria thought it was from the pad she was wearing UA: brown, cloudy, leukocyte 3+, WBC 30 1-50, bacteria 3+ * on IV Rocephin pending cultures (9) Depression: Code(s): F32.A - Depression, unspecified Status: Acute Assessment and Plan: patient has had severe depression since the passing of her 2 years prior reports her primary care physician currently has a Xanax for when she has episodes shortness of breaths feels like panic attacks, at this time I have recommended her start sertraline which may provide and better therapeutic response she has requested that I speak with her family prior to initiating. I did recommend grief counseling or grief groups. Plan Code status: Full code per patient DVT prophylaxis: Lovenox Stress ulcer prophylaxis: PT/OT notes: Pending Disposition: patient continues admission for acute respiratory failure with hypoxia secondary to possible new onset CHF, progressing interstitial lung disease with pneumonitis and UTI. patient to have PT OT evaluation for possible swing placement for continued rehab. currently waiting on echocardiogram for further evaluation new onset CHF. Time Spent With Patient Time with patient: 15 - 25 minutes Subjective Date/time seen: 07/04/24 08:46 Interval history: Patient is an 88-year-old female who was admitted for further treatment of acute respiratory failure with hypoxia secondary to possible new onset CHF in exacerbation interstitial lung disease. 07/04/24: Patient states she feels better today and her SOB has improved. Patient denied CP. Patient can be tearful at times when talking about her who passed. Review of Systems Review of Systems: All systems reviewed & are unremarkable except as noted in HPI and below Exam Const: General: comfortable and no acute distress Other: Pleasant female SOB at rest HENMT: Face/Nose/Sinus: Normal nares present Mouth: Yes moist mucous membranes Eyes: General: appearance normal, both eyes and all related structures Sclera: sclerae normal Pupils: Equal, round and reactive pupils present EOM: EOMs intact bilaterally Neck: Neck: supple and no JVD Resp: Auscultation: rhonchi left lower and right lower Cardio: Rate: regular rate Rhythm: regular rhythm GI: Auscultation: normal bowel sounds Skin: General skin exam: normal color and no rashes or lesions noted Wounds: no wounds Neuro: General: gait normal Cranial nerves: Yes Equal, round and reactive pupils present Speech: normal speech Motor exam (neuro): 5/5 motor strength present throughout Sensory Exam: normal sensation Extrem: General: edema (lower extremities 2+ pitting edema) bilateral Psych: Mental Status: mental status grossly normal Affect: Sad affect present Objective Data Vital Signs Vital Signs: Vital Signs - 24 hr 07/03/24 16:00 07/03/24 19:11 07/03/24 19:30 Temperature 97.7 F Pulse Rate 67 68 75 Respiratory Rate 18 18 16 Blood Pressure 123/55 L Pulse Oximetry 94 94 97 Oxygen Delivery Nasal Cannula Oxygen Flow Rate 2 2 2 07/03/24 20:00 07/03/24 21:02 07/04/24 00:00 Temperature 97.4 F L Pulse Rate 70 75 76 Respiratory Rate 18 16 Blood Pressure 118/44 L Pulse Oximetry 93 94 Oxygen Delivery Nasal Cannula Nasal Cannula Oxygen Flow Rate 2 2 07/04/24 00:30 07/04/24 00:46 07/04/24 05:33 Temperature Pulse Rate 68 68 72 Respiratory Rate 16 16 16 Blood Pressure Pulse Oximetry 91 97 94 Oxygen Delivery Oxygen Flow Rate 2 2 2 07/04/24 05:42 Temperature Pulse Rate 68 Respiratory Rate 16 Blood Pressure Pulse Oximetry 98 Oxygen Delivery Oxygen Flow Rate 2 Intake/Output Intake/Output: Intake & Output 07/01/24 07/02/24 07/03/24 07/04/24 23:59 23:59 23:59 23:59 Intake Total 620 2105 400 Output Total 400 1800 800 Balance 220 305 -400 Meds/Results Medications: Active Medications Generic Name Dose Route Start Last Admin Trade Name Freq PRN Reason Stop Dose Admin Acetaminophen 650 mg 07/02/24 16:04 Acetaminophen 325 Mg Tablet PO Q4H PRN Mild Pain (1-3) or Fever Hydrocodone Bitart/Acetaminophen 1 tab 07/02/24 16:04 Hydrocodone/Acetaminophen (*Crx) 5-325 Mg Tablet PO Q4H PRN Moderate Pain (4-6) Albuterol 2 puff 07/02/24 16:03 07/04/24 06:43 Albuterol Sulfate (*Sp) Inhaler INHALATION 2 puff Q6H PRN Administration Shortness Of Breath Or Wheezing Albuterol/Ipratropium 3 ml 07/03/24 12:30 07/04/24 05:31 Ipratropium 0.5 Mg/Albuterol Sulfate 2.5 Mg Ampul.Neb 3 Ml INHALATION 3 ml Q6HRT VANESSA Administration Alprazolam 0.5 mg 07/02/24 21:00 07/03/24 21:05 Alprazolam (*Crx) 0.5 Mg Tablet PO 0.5 mg HS VANESSA Administration Atorvastatin Calcium 10 mg 07/03/24 09:00 07/03/24 08:26 Atorvastatin 10 Mg Tablet PO 10 mg Q48H VANESSA Administration Azithromycin 500 mg 07/03/24 10:45 07/03/24 11:43 Azithromycin 250 Mg Tablet PO 500 mg DAILY VANESSA Administration Budesonide/Formoterol Fumarate 2 puff 07/03/24 06:30 07/04/24 06:43 Budesonide/Formoterol (*Sp) 160-4.5 Mcg 6 Gm Inh INHALATION 2 puff Q12HRT VANESSA Administration Clopidogrel Bisulfate 75 mg 07/03/24 09:00 07/03/24 08:26 Clopidogrel Bisulfate 75 Mg Tablet PO 75 mg DAILY VANESSA Administration Clotrimazole 10 mg 07/03/24 07:00 07/04/24 06:44 Clotrimazole 10 Mg Troc PO 10 mg Q12H VANESSA Administration Cyanocobalamin 1,000 mcg 07/03/24 09:00 07/03/24 08:25 Cyanocobalamin 1,000 Mcg Tablet PO 1,000 mcg QAM VANESSA Administration Dextrose 12.5 gm 07/02/24 16:08 Dextrose 50% 25 Gm/50 Ml Syringe IV PUSH PRN PRN Hypoglycemia Protocol Enoxaparin Sodium 30 mg 07/03/24 09:00 07/03/24 08:23 Enoxaparin 30 Mg/0.3 Ml Syringe SUB-Q 30 mg DAILY VANESSA Administration Furosemide 20 mg 07/02/24 17:00 07/03/24 16:51 Furosemide Inj 20 Mg/2 Ml Vial IV PUSH 20 mg BID VANESSA Administration Glucagon 1 mg 07/02/24 16:08 Glucagon For Inj 1 Mg Vial IM PRN PRN Hypoglycemia Protocol Glucose 15 gm 07/02/24 16:08 Glucose Oral Gel 15 Gm Of Glucse In 37.5 Gm Tube PO PRN PRN Hypoglycemia Protocol Guaifenesin 600 mg 07/03/24 09:00 07/03/24 21:05 Guaifenesin 12 Hr 600 Mg Tabcr PO 600 mg Q12HR VANESSA Administration Ceftriaxone Sodium 1 gm in 50 mls @ 100 mls/hr 07/03/24 09:00 07/03/24 09:07 Rocephin 1 Gm/Ns 50 Ml IVPB Infused Q24H VANESSA Infusion Dextrose 1,000 mls @ 100 mls/hr 07/02/24 16:08 Dextrose 5% 1,000 Ml IVPB PRN PRN Hypoglycemia Protocol Insulin Human Lispro 2 - 5 units 07/02/24 17:00 07/04/24 08:15 Insulin Human Lispro (*Bkc) 1,000 Units/10 Ml Vial SUB-Q Not Given TIDWM VANESSA Protocol Levothyroxine Sodium 75 mcg 07/03/24 06:30 07/04/24 06:43 Levothyroxine Sodium 75 Mcg Tablet PO 75 mcg DAILY@0630 VANESSA Administration Levothyroxine Sodium 75 mcg 07/03/24 06:30 07/03/24 06:08 Levothyroxine Sodium 75 Mcg Tablet PO 75 mcg Calderon@0630 VAENSSA Administration Loratadine 10 mg 07/03/24 09:00 07/03/24 08:25 Loratadine 10 Mg Tablet PO 10 mg DAILY VANESSA Administration Losartan Potassium 100 mg 07/03/24 09:00 07/03/24 08:29 Losartan Potassium 50 Mg Tablet PO 100 mg QAM VANESSA Administration Metoprolol Tartrate 100 mg 07/03/24 09:00 07/03/24 21:02 Metoprolol Tartrate 50 Mg Tab PO 100 mg Q12HR VANESSA Administration Ondansetron HCl 4 mg 07/02/24 16:04 Ondansetron Inj 4 Mg/2 Ml Vial IV PUSH Q6H PRN Nausea And Vomiting Perflutren Lipid Microsphere 0 ml 07/03/24 09:09 Perflutren Lipid Microspheres 1.5 Ml Vial Diluted To 10 Ml Total Volume IV PUSH 07/06/24 09:10 ONCE PRN adequate visualization Protocol Prednisone 40 mg 07/03/24 10:40 07/03/24 11:43 Prednisone 20 Mg Tablet PO 40 mg DAILY@0800 [facility] Administration Timolol Maleate 1 drop 07/03/24 09:00 07/03/24 08:23 Timolol Maleate 0.5% Op Soln 5 Ml Bottle EACH EYE 1 drop QAM VANESSA Administration Radiology Results: ITS Impressions Chest X-Ray 07/02/24 13:30 IMPRESSION: 1. Stable appearance of chronic interstitial lung disease with peripheral and basilar predominance. Chest CTA 07/03/24 09:59 IMPRESSION: 1. No pulmonary embolism. 2. Usual interstitial pneumonia (UIP) pattern chronic interstitial lung disease with increasing round glass opacities throughout both lungs. This could be due to atelectasis related to suboptimal inspiratory effort, progression of the chronic interstitial lung disease, hypersensitivity pneumonitis, pulmonary edema or pneumonia. 3. Small sliding-type hiatal hernia. Venous Doppler Study 07/04/24 08:29 IMPRESSION: Negative bilateral lower extremity venous US. No deep vein thrombosis. Labs Labs: Laboratory Results - last 24 hr 07/03/24 07/03/24 07/03/24 08:29 11:51 16:38 WBC 9.6 RBC 4.35 Hgb 13.5 Hct 43.2 H MCV 99.3 MCH 31.0 MCHC 31.3 L RDW 13.7 Plt Count 403 MPV 9.5 Immature Gran % (Auto) 0.3 H Neut % (Auto) 73.6 H Lymph % (Auto) 16.9 L [place] % (Auto) 6.9 Eos % (Auto) 1.8 Baso % (Auto) 0.5 Lymph # (Auto) 1.63 [place] # (Auto) 0.66 Eos # (Auto) 0.17 Baso # (Auto) 0.05 Abs Immat Gran (auto) 0.03 H Absolute Neuts (auto) 7.09 Absolute Nucleated RBC 0.00 Nucleated RBC % 0.0 D-Dimer 2.19 H* Sodium 138 Potassium 4.6 Chloride 102 Carbon Dioxide 28 Anion Gap 8 BUN 21 H Creatinine 1.43 H Estim Creat Clear Calc 28 Estimated GFR 35 L Glucose 181 H POC Capillary Glucose 216 H 176 H Hemoglobin A1c 6.3 H Calculated Osmolality 294 Lactic Acid 2.6 H Calcium 9.2 Magnesium 1.8 Total Bilirubin 0.4 AST 13 L ALT 14 Alkaline Phosphatase 129 H Total Protein 7.8 Albumin 2.8 L 07/03/24 07/04/24 21:23 05:22 WBC 10.8 RBC 3.84 L Hgb 11.8 Hct 37.8 MCV 98.4 MCH 30.7 MCHC 31.2 L RDW 13.6 Plt Count 364 MPV 9.3 Immature Gran % (Auto) 0.4 H Neut % (Auto) 75.2 H Lymph % (Auto) 18.3 [place] % (Auto) 5.5 Eos % (Auto) 0.4 L Baso % (Auto) 0.2 Lymph # (Auto) 1.97 [place] # (Auto) 0.59 Eos # (Auto) 0.04 Baso # (Auto) 0.02 Abs Immat Gran (auto) 0.04 H Absolute Neuts (auto) 8.12 H Absolute Nucleated RBC 0.00 Nucleated RBC % 0.0 D-Dimer Sodium 138 Potassium 4.2 Chloride 105 Carbon Dioxide 25 Anion Gap 8 BUN 34 H Creatinine 1.34 H Estim Creat Clear Calc 29 Estimated GFR 37 L Glucose 126 H POC Capillary Glucose 241 H Hemoglobin A1c Calculated Osmolality 295 Lactic Acid Calcium 8.6 Magnesium Total Bilirubin 0.3 AST < 10 L ALT 11 L Alkaline Phosphatase 100 Total Protein 6.6 Albumin 2.5 L Quality VTE Prophylaxis VTE prophylaxis: pharmacologic ordered -Patient's previous records reviewed on admission -ER notes reviewed in detail on admission -discussed all findings and current treatment plan with patient/Family/POA -Consultations reviewed for recommendations -Patient's disposition for safe discharge discussed with rn case mgr Dictation performed by [employer] direct speech recognition software, therefore family practice doctor variants and typographical errors may occur. Hospitalist MIPS Advance Care Plan I have confirmed that the patient's Advanced Care Plan is present, code status is documented, or surrogate decision maker is listed in patient medical record.: Yes Medication Reconciliation I have utilized all available resources to obtain, update and review the patients current medications (includes all prescriptions, OTC, herbals, cannabis, and nutritional supplements).: Yes The patient is not eligible for med reconciliation; the patient is in a emergent medical situation where delaying treatment would jeopardize the patients health.: No
[2024-07-04] MEDS: METOPROLOL TARTRATE 50 MG TAB 100 MG PO ×2 (09:08→20:31)
[2024-07-04] MEDS: AZITHROMYCIN 250 MG TABLET 500 MG PO (09:08)
[2024-07-04] MEDS: CLOPIDOGREL BISULFATE 75 MG TABLET PO (09:08)
[2024-07-04] MEDS: LOSARTAN POTASSIUM 50 MG TABLET 100 MG PO (09:09)
[2024-07-04] MEDS: CYANOCOBALAMIN 1,000 MCG TABLET 1000 MCG PO (09:09)
[2024-07-04] MEDS: guaiFENesin 12 HR 600 MG TABCR PO ×2 (09:09→20:32)
[2024-07-04] MEDS: FUROSEMIDE INJ 20 MG/2 ML VIAL IV PUSH ×2 (09:09→17:05)
[2024-07-04] MEDS: LORATADINE 10 MG TABLET PO (09:09)
[2024-07-04] MEDS: TIMOLOL MALEATE 0.5% OP SOLN 5 ML BOTTLE 1 DROP EACH EYE (09:09)
--- NOTE | 2024-07-04 11:02 | PC.NURSE ---
Spoke with Suzanne, Cardio Pulmonary. She will be able to send a tech early on 07/05/2024 to complete echo on patient. There is no one available to come today.
[2024-07-04 11:56] LABS: Glucose Point of Care 201 mg/dl (65-105)
[2024-07-04] MEDS: INSULIN HUMAN LISPRO (*BKC) 1,000 UNITS/10 ML VIAL SUB-Q (13:21)
[2024-07-04 17:10] LABS: Glucose Point of Care 195 mg/dl (65-105)
[2024-07-04] MEDS: SERTRALINE HCL 25 MG TABLET PO (20:32)
[2024-07-04] MEDS: ALPRAZolam (*CRX) 0.5 MG TABLET PO (20:32)
[2024-07-05] VITALS (26 sets, daily range): BP systolic 116–144; BP diastolic 53–63; PULSE 65–88; RESP 12–20; TEMP 36.2–36.7; O2SAT 86–98
[2024-07-05] MEDS: IPRATROPIUM 0.5 MG/ALBUTEROL SULFATE 2.5 MG AMPUL.NEB 3 ML INHALATION ×5 (00:52→23:31)
--- NOTE | 2024-07-05 03:00 | PC.NURSE ---
Pt up to BSC with the walker and standby assist of one. Pt voided 525 ml of slightly hazy urine. Pt back to bed with the walker and standby assist of one.
--- NOTE | 2024-07-05 05:00 | PC.NURSE ---
Pt up to the BSC and voided 400 ml of hazy, yellow urine. Pt back to bed with the walker and standby assist of one.
--- NOTE | 2024-07-05 06:00 | PC.NURSE ---
Pt weighed 91.3 per bed scale.
[2024-07-05] MEDS: LEVOTHYROXINE SODIUM 75 MCG TABLET PO (06:19)
[2024-07-05] MEDS: BUDESONIDE/FORMOTEROL (*SP) 160-4.5 MCG 6 GM INH 2 PUFF INHALATION ×2 (06:21→18:21)
[2024-07-05] MEDS: CLOTRIMAZOLE 10 MG TROC PO ×2 (06:33→18:21)
[2024-07-05 07:48] LABS: Glucose Point of Care 124 mg/dl (65-105)
[2024-07-05 08:15] LABS: Basophils Absolute Auto 0.04 K/mm3 (0.00-0.10); Basophils Percent Auto 0.4 % (0.0-1.0); Eosinophils Absolute Auto 0.09 K/mm3 (0.02-0.50); Eosinophils Percent Auto 0.8 % (1.0-6.0); Hematocrit 41.6 % (35.0-42.0); Hemoglobin 12.8 g/dL (11.7-13.8); Immature Granulocyte Absolute 0.03 K/mm3 (0.00-0.00); Immature Granulocyte Percent A 0.3 % (0.0-0.0); Lymphocytes Absolute Auto 2.59 K/mm3 (1.10-4.50); Lymphocytes Percent Auto 23.7 % (18.0-42.0); Mean Corpuscular HGB Conc 30.8 g/dL (32-36); Mean Corpuscular Hemoglobin 30.4 pg (27.0-31.0); Mean Corpuscular Volume 98.8 fL (78.0-102.0); Mean Platelet Volume 9.5 fl (9.2-11.8); Monocytes Absolute Auto 0.73 K/mm3 (0.10-0.90); Monocytes Percent Auto 6.7 % (2.0-11.0); Neutrophils Absolute Auto 7.46 K/mm3 (1.70-7.20); Neutrophils Percent Auto 68.1 % (50.0-70.0); Platelet Count Result 407 K/mm3 (150-420); Red Blood Count 4.21 M/mm3 (4.20-5.40); Red Cell Distribution Width 13.6 % (11.6-14.4); White Blood Count 10.9 K/mm3 (4.8-10.8)
[2024-07-05 08:27] LABS: Anion Gap 7 mmol/L (4-12); Carbon Dioxide 27 mmol/L (21-32); Chloride 106 mmol/L (98-108); Estimated CRCL calculation 57 ml/min; Estimated Glomerular Filt Rate > 60; Potassium 4.8 mmol/L (3.5-5.1); Sodium 140 mmol/L (136-145)
[2024-07-05] MEDS: FUROSEMIDE INJ 20 MG/2 ML VIAL IV PUSH ×2 (09:05→18:21)
[2024-07-05] MEDS: METOPROLOL TARTRATE 50 MG TAB 100 MG PO ×2 (09:06→20:53)
[2024-07-05] MEDS: guaiFENesin 12 HR 600 MG TABCR PO ×2 (09:06→20:53)
[2024-07-05] MEDS: predniSONE 20 MG TABLET 40 MG PO (09:06)
[2024-07-05] MEDS: LOSARTAN POTASSIUM 50 MG TABLET 100 MG PO (09:06)
[2024-07-05] MEDS: TIMOLOL MALEATE 0.5% OP SOLN 5 ML BOTTLE 1 DROP EACH EYE (09:07)
[2024-07-05] MEDS: CYANOCOBALAMIN 1,000 MCG TABLET 1000 MCG PO (09:07)
[2024-07-05] MEDS: AZITHROMYCIN 250 MG TABLET 500 MG PO (09:07)
[2024-07-05] MEDS: CLOPIDOGREL BISULFATE 75 MG TABLET PO (09:07)
[2024-07-05] MEDS: LORATADINE 10 MG TABLET PO (09:07)
[2024-07-05] MEDS: ATORVASTATIN 10 MG TABLET PO (09:07)
--- NOTE | 2024-07-05 09:16 | P.PNIM_ITS ---
Progress Note: A&P Assessment and Plan (1) Acute respiratory failure with hypoxia: Code(s): J96.01 - Acute respiratory failure with hypoxia Status: Acute Assessment and Plan: patient presented with worsening shortness a breath was found to have acute respiratory failure with hypoxia saturations in the mid 80s was placed on 4 L nasal cannula which brought her oxygen saturations in the mid 90s. CTA was ne gative for PE however showing increasing ground-glass opacities throughout both lungs could be progressing chronic interstitial lung disease, hypersensitivity pneumonitis, pulmonary edema or pneumonia. Will treat multifocal for ILD progression with pneumonitis as well as CHF possible new onset due to elevated BNP and bilateral lower extremity swelling. * wean supplemental oxygen as tolerated weaned to 1L * may need home O2 evaluation prior to discharge (2) ILD (interstitial lung disease): Code(s): J84.9 - Interstitial pulmonary disease, unspecified Status: Acute Assessment and Plan: patient reported she has been by oncologist since likely secondary to radiation/chemo ILD CTA showing progressive interstitial lung disease related to pneumonitis, pneumonia versus pulmonary edema * Bronchodilators. * incentive spirometry while awake. * steroids initiated 40mg daily * mucolytic * azithromycin 500 x 1 day/250 daily * supplemental oxygen therapy to maintain oxygen 92% weaned to 2L * Keep BMI less than 25. * Follow-up with track man as an outpatient would benefit from PFT testing (3) CHF (congestive heart failure): Qualifiers: Heart failure chronicity: unspecified Heart failure type: unspecified Qualified Code(s): I50.9 - Heart failure, unspecified Code(s): I50.9 - Heart failure, unspecified Status: Acute Assessment and Plan: patient denied any history of congestive heart failure presents today with elevated BNP CT with possible pulmonary edema hypoxic and bilateral leg swelling. continue with IV Lasix at this time pending echocardiogram for Thursday. patient will likely need discharged on oral Lasix family and patient aware they need to follow-up with cardiology outpatient. Patient does express a lot of grief since the passing of her and failed to follow-up with Cardiology after his passing. She has no Echo on file questioning the potential for Takotsubo cardiomyopathy, will evaluate once Echo is Interpreted, Echo planned for today 07/05 echo was then red no evidence of takotsubo cardiomyopathy does have diastolic dysfunction and moderate pulmonary hypertension * continue IV Lasix b.i.d. 20mg * monitor renal function during diuresis * echocardiogram: Shows grade 1 diastolic dysfunction LVEF of 60-65%, mild AR trace MR, trace TR with moderate pulmonary hypertension * EKG reviewed * continued beta-blockers and ARB * Daily weight. * elevate/James wrap legs if needed * Fall risk assessment. (4) Hypertension: Code(s): I10 - Essential (primary) hypertension Status: Acute Assessment and Plan: BP in good parameters even with The discontinuation of amlodipine * continue metoprolol and losartan, * discontinued amlodipine which can cause worsening lower extremity swelling * BP per unit protocol (5) Diabetes mellitus: Code(s): E11.9 - Type 2 diabetes mellitus without complications Status: Acute Assessment and Plan: * A1c 6.3 * will hold her glimepiride * low-dose SSI * Accu-Cheks a.c. HS * diabetic diet * hypoglycemic protocol (6) MICHELLE (acute kidney injury): Code(s): N17.9 - Acute kidney failure, unspecified Status: Acute Assessment and Plan: patient with no previous history of chronic kidney disease however likely a stage III secondary to her diabetes, hypertension will need to monitor closely with diuresis. Cr improving slowly * Cr 1.41/GFR 35 POA * Avoid nephrotoxic drugs. * Monitor antihypertensive drug therapy. * Avoid NSAIDs. * Routine CMP monitoring GFR. * Monitor electrolytes especially potassium. (7) Acute UTI: Code(s): N39.0 - Urinary tract infection, site not specified Status: Acute Assessment and Plan: patient reported she has had some dysuria thought it was from the pad she was wearing. Final culture did not grow anything however additional reflex was not done unsure if this was a repeat urine patient was symptomatic reports dysuria will continue to treat for UTI incomplete antibiotic course UA: brown, cloudy, leukocyte 3+, WBC 30 1-50, bacteria 3+ * patient has had 1 dose IV Levaquin and 3 doses of Rocephin can have last dose tomorrow should complete therapy. (8) Elevated d-dimer: Code(s): R79.89 - Other specified abnormal findings of blood chemistry Status: Ruled-out Assessment and Plan: patient presenting with acute respiratory failure with hypoxia and bilateral lower extremity swelling and patient reporting sedentary lifestyle * D-dimer elevated 2.19 * CTA negative for PE * venous Dopplers negative for DVT (9) Depression: Code(s): F32.A - Depression, unspecified Status: Acute Assessment and Plan: patient has had severe depression since the passing of her 2 years prior reports her primary care physician currently has a Xanax for when she has episodes shortness of breaths feels like panic attacks, at this time I have recommended her start sertraline which may provide and better therapeutic response she has requested that I speak with her family prior to initiating. I did recommend grief counseling or grief groups. * sertraline was started 25 mg Plan Code status: Full code per patient DVT prophylaxis: Lovenox Stress ulcer prophylaxis: PT/OT notes: Pending Disposition: patient continues admission for acute respiratory failure with hypoxia secondary to possible new onset CHF, progressing interstitial lung disease with pneumonitis and UTI. patient to have PT OT evaluation for possible swing placement for continued rehab. currently waiting on echocardiogram for further evaluation new onset CHF. Time Spent With Patient Time with patient: 15 - 25 minutes Subjective Date/time seen: 07/05/24 09:16 Interval history: Patient is an 88-year-old female who was admitted for further treatment of acute respiratory failure with hypoxia secondary to possible new onset CHF in exacerbation interstitial lung disease. 07/05/24: Patient reports SOB improved has been weaned to 1 L NC. Denied CP, N/V, ABD pain, dizziness. Labs reviewed and vitals stable Review of Systems Review of Systems: All systems reviewed & are unremarkable except as noted in HPI and below Exam Const: General: comfortable and no acute distress Other: Pleasant female SOB at rest HENMT: Face/Nose/Sinus: Normal nares present Mouth: Yes moist mucous membranes Eyes: General: appearance normal, both eyes and all related structures Sclera: sclerae normal Pupils: Equal, round and reactive pupils present EOM: EOMs intact bilaterally Neck: Neck: supple and no JVD Resp: Auscultation: crackles bilateral at the base and rhonchi left lower and right lower Cardio: Rate: regular rate Rhythm: regular rhythm GI: Auscultation: normal bowel sounds Skin: General skin exam: normal color and no rashes or lesions noted Wounds: no wounds Neuro: General: gait normal Cranial nerves: Yes Equal, round and reactive pupils present Speech: normal speech Motor exam (neuro): 5/5 motor strength present throughout Sensory Exam: normal sensation Extrem: General: edema (lower extremities 2+ pitting edema) bilateral Psych: Mental Status: mental status grossly normal Affect: Sad affect present Objective Data Vital Signs Vital Signs: Vital Signs - 24 hr 07/04/24 11:39 07/04/24 13:00 07/04/24 13:12 Temperature Pulse Rate 71 68 70 Respiratory Rate 16 16 Blood Pressure Pulse Oximetry 95 98 Oxygen Delivery Oxygen Flow Rate 2 07/04/24 16:00 07/04/24 16:00 07/04/24 19:17 Temperature 97.8 F Pulse Rate 65 65 69 Respiratory Rate 20 20 Blood Pressure 119/49 L Pulse Oximetry 94 98 Oxygen Delivery Nasal Cannula Oxygen Flow Rate 1.5 07/04/24 19:28 07/04/24 20:00 07/04/24 20:00 Temperature Pulse Rate 69 68 69 Respiratory Rate 20 20 Blood Pressure Pulse Oximetry 98 96 Oxygen Delivery Nasal Cannula Oxygen Flow Rate 1.5 07/04/24 20:31 07/05/24 00:00 07/05/24 00:00 Temperature 98.0 F Pulse Rate 70 68 70 Respiratory Rate 20 Blood Pressure 116/55 L Pulse Oximetry 94 Oxygen Delivery Room Air Oxygen Flow Rate 07/05/24 00:53 07/05/24 01:00 07/05/24 04:00 Temperature 97.2 F L Pulse Rate 68 65 68 Respiratory Rate 20 20 20 Blood Pressure 144/63 H Pulse Oximetry 91 98 94 Oxygen Delivery Nasal Cannula Oxygen Flow Rate 1.5 6 3 07/05/24 05:35 07/05/24 05:45 07/05/24 08:21 Temperature 97.2 F L Pulse Rate 76 71 70 Respiratory Rate 16 16 12 Blood Pressure 125/54 L Pulse Oximetry 94 97 91 Oxygen Delivery Nasal Cannula Oxygen Flow Rate 1 1 1.5 07/05/24 09:06 Temperature Pulse Rate 70 Respiratory Rate Blood Pressure Pulse Oximetry Oxygen Delivery Oxygen Flow Rate Intake/Output Intake/Output: Intake & Output 07/02/24 07/03/24 07/04/24 07/05/24 23:59 23:59 23:59 23:59 Intake Total 620 2105 1630 150 Output Total 400 1800 1100 925 Balance 220 305 530 -775 Meds/Results Medications: Active Medications Generic Name Dose Route Start Last Admin Trade Name Freq PRN Reason Stop Dose Admin Acetaminophen 650 mg 07/02/24 16:04 Acetaminophen 325 Mg Tablet PO Q4H PRN Mild Pain (1-3) or Fever Hydrocodone Bitart/Acetaminophen 1 tab 07/02/24 16:04 Hydrocodone/Acetaminophen (*Crx) 5-325 Mg Tablet PO Q4H PRN Moderate Pain (4-6) Albuterol 2 puff 07/02/24 16:03 07/04/24 06:43 Albuterol Sulfate (*Sp) Inhaler INHALATION 2 puff Q6H PRN Administration Shortness Of Breath Or Wheezing Albuterol/Ipratropium 3 ml 07/03/24 12:30 07/05/24 05:34 Ipratropium 0.5 Mg/Albuterol Sulfate 2.5 Mg Ampul.Neb 3 Ml INHALATION 3 ml Q6HRT VANESSA Administration Alprazolam 0.5 mg 07/02/24 21:00 07/04/24 20:32 Alprazolam (*Crx) 0.5 Mg Tablet PO 0.5 mg HS VANESSA Administration Atorvastatin Calcium 10 mg 07/03/24 09:00 07/05/24 09:07 Atorvastatin 10 Mg Tablet PO 10 mg Q48H VANESSA Administration Azithromycin 500 mg 07/03/24 10:45 07/05/24 09:07 Azithromycin 250 Mg Tablet PO 500 mg DAILY VANESSA Administration Budesonide/Formoterol Fumarate 2 puff 07/03/24 06:30 07/05/24 06:21 Budesonide/Formoterol (*Sp) 160-4.5 Mcg 6 Gm Inh INHALATION 2 puff Q12HRT VANESSA Administration Clopidogrel Bisulfate 75 mg 07/03/24 09:00 07/05/24 09:07 Clopidogrel Bisulfate 75 Mg Tablet PO 75 mg DAILY VANESSA Administration Clotrimazole 10 mg 07/03/24 07:00 07/05/24 06:33 Clotrimazole 10 Mg Troc PO 10 mg Q12H VANESSA Administration Cyanocobalamin 1,000 mcg 07/03/24 09:00 07/05/24 09:07 Cyanocobalamin 1,000 Mcg Tablet PO 1,000 mcg QAM VANESSA Administration Dextrose 12.5 gm 07/02/24 16:08 Dextrose 50% 25 Gm/50 Ml Syringe IV PUSH PRN PRN Hypoglycemia Protocol Enoxaparin Sodium 30 mg 07/03/24 09:00 07/05/24 09:08 Enoxaparin 30 Mg/0.3 Ml Syringe SUB-Q Not Given DAILY VANESSA Furosemide 20 mg 07/02/24 17:00 07/05/24 09:05 Furosemide Inj 20 Mg/2 Ml Vial IV PUSH 20 mg BID VANESSA Administration Glucagon 1 mg 07/02/24 16:08 Glucagon For Inj 1 Mg Vial IM PRN PRN Hypoglycemia Protocol Glucose 15 gm 07/02/24 16:08 Glucose Oral Gel 15 Gm Of Glucse In 37.5 Gm Tube PO PRN PRN Hypoglycemia Protocol Guaifenesin 600 mg 07/03/24 09:00 07/05/24 09:06 Guaifenesin 12 Hr 600 Mg Tabcr PO 600 mg Q12HR VANESSA Administration Ceftriaxone Sodium 1 gm in 50 mls @ 100 mls/hr 07/03/24 09:00 07/04/24 09:50 Rocephin 1 Gm/Ns 50 Ml IVPB Infused Q24H VANESSA Infusion Dextrose 1,000 mls @ 100 mls/hr 07/02/24 16:08 Dextrose 5% 1,000 Ml IVPB PRN PRN Hypoglycemia Protocol Insulin Human Lispro 2 - 5 units 07/02/24 17:00 07/05/24 09:08 Insulin Human Lispro (*Bkc) 1,000 Units/10 Ml Vial SUB-Q Not Given TIDWM VANESSA Protocol Levothyroxine Sodium 75 mcg 07/03/24 06:30 07/05/24 06:19 Levothyroxine Sodium 75 Mcg Tablet PO 75 mcg DAILY@0630 VANESSA Administration Levothyroxine Sodium 75 mcg 07/03/24 06:30 07/03/24 06:08 Levothyroxine Sodium 75 Mcg Tablet PO 75 mcg Calderon@0630 VANESSA Administration Loratadine 10 mg 07/03/24 09:00 07/05/24 09:07 Loratadine 10 Mg Tablet PO 10 mg DAILY VANESSA Administration Losartan Potassium 100 mg 07/03/24 09:00 07/05/24 09:06 Losartan Potassium 50 Mg Tablet PO 100 mg QAM VANESSA Administration Metoprolol Tartrate 100 mg 07/03/24 09:00 07/05/24 09:06 Metoprolol Tartrate 50 Mg Tab PO 100 mg Q12HR VANESSA Administration Ondansetron HCl 4 mg 07/02/24 16:04 Ondansetron Inj 4 Mg/2 Ml Vial IV PUSH Q6H PRN Nausea And Vomiting Perflutren Lipid Microsphere 0 ml 07/03/24 09:09 Perflutren Lipid Microspheres 1.5 Ml Vial Diluted To 10 Ml Total Volume IV PUSH 07/06/24 09:10 ONCE PRN adequate visualization Protocol Prednisone 40 mg 07/03/24 10:40 07/05/24 09:06 Prednisone 20 Mg Tablet PO 40 mg DAILY@0800 VANESSA Administration Sertraline HCl 25 mg 07/04/24 21:00 07/04/24 20:32 Sertraline Hcl 25 Mg Tablet PO 25 mg QHS VANESSA Administration Timolol Maleate 1 drop 07/03/24 09:00 07/05/24 09:07 Timolol Maleate 0.5% Op Soln 5 Ml Bottle EACH EYE 1 drop QAM VANESSA Administration Radiology Results: ITS Impressions Chest X-Ray 07/02/24 13:30 IMPRESSION: 1. Stable appearance of chronic interstitial lung disease with peripheral and basilar predominance. Chest CTA 07/03/24 09:59 IMPRESSION: 1. No pulmonary embolism. 2. Usual interstitial pneumonia (UIP) pattern chronic interstitial lung disease with increasing round glass opacities throughout both lungs. This could be due to atelectasis related to suboptimal inspiratory effort, progression of the chronic interstitial lung disease, hypersensitivity pneumonitis, pulmonary edema or pneumonia. 3. Small sliding-type hiatal hernia. Venous Doppler Study 07/04/24 08:29 IMPRESSION: Negative bilateral lower extremity venous US. No deep vein thrombosis. Labs Labs: Laboratory Results - last 24 hr 07/04/24 07/04/24 07/05/24 11:51 17:04 07:44 WBC RBC Hgb Hct MCV MCH MCHC RDW Plt Count MPV Immature Gran % (Auto) Neut % (Auto) Lymph % (Auto) Baldwin % (Auto) Eos % (Auto) Baso % (Auto) Lymph # (Auto) Baldwin # (Auto) Eos # (Auto) Baso # (Auto) Abs Immat Gran (auto) Absolute Neuts (auto) Absolute Nucleated RBC Nucleated RBC % POC Capillary Glucose 201 H 195 H 124 H 07/05/24 07:52 WBC 10.9 H RBC 4.21 Hgb 12.8 Hct 41.6 MCV 98.8 MCH 30.4 MCHC 30.8 L RDW 13.6 Plt Count 407 MPV 9.5 Immature Gran % (Auto) 0.3 H Neut % (Auto) 68.1 Lymph % (Auto) 23.7 Baldwin % (Auto) 6.7 Eos % (Auto) 0.8 L Baso % (Auto) 0.4 Lymph # (Auto) 2.59 Baldwin # (Auto) 0.73 Eos # (Auto) 0.09 Baso # (Auto) 0.04 Abs Immat Gran (auto) 0.03 H Absolute Neuts (auto) 7.46 H Absolute Nucleated RBC 0.00 Nucleated RBC % 0.0 POC Capillary Glucose Quality VTE Prophylaxis VTE prophylaxis: pharmacologic ordered -Patient's previous records reviewed on admission -ER notes reviewed in detail on admission -discussed all findings and current treatment plan with patient/Family/POA -Consultations reviewed for recommendations -Patient's disposition for safe discharge discussed with shoe caser Dictation performed by [employer] direct speech recognition software, therefore clinical trials specialist variants and typographical errors may occur. Hospitalist [facility] Advance Care Plan I have confirmed that the patient's Advanced Care Plan is present, code status is documented, or surrogate decision maker is listed in patient medical record.: Yes Medication Reconciliation I have utilized all available resources to obtain, update and review the patients current medications (includes all prescriptions, OTC, herbals, cannabi s, and nutritional supplements).: Yes The patient is not eligible for med reconciliation; the patient is in a emergent medical situation where delaying treatment would jeopardize the patients health.: No
--- NOTE | 2024-07-05 10:40 | ECHO_ITS ---
Patient Info Name: Mona Uribe Age: 88 years : 1935 Gender: Female Ht: 65 in Wt: 199 lbs BSA: 2.07 m2 HR: 70 bpm BP: 125 / 54 mmHg Heart Rhythm: Sinus Rhythm Technical Quality: Fair Exam Date: 07/05/2024 10:24 AM Exam Location: Echo Lab Patient Status: Inpatient Admit Date: 07/03/2024 Staff Ordering Physician: Monie Wolf APRN [employer] Or Busser: Mandi Clay RDCS Attending Provider: Lillie Ferrara MD Referring Physician: Luciano ZARAGOZA; Exam Type: CA echo doppler color flow Study Info Indications - Hypoxia, Elevated BNP, Leg edema Complete two-dimensional, color flow and Doppler transthoracic echocardiogram is performed. Summary 1. Complete two-dimensional, color flow and Doppler transthoracic echocardiogram is performed. 2. Left ventricular chamber dimension is normal. 3. Left ventricular systolic function is normal, estimated at 60-65%. 4. There is mild concentric increased left ventricular wall thickness. 5. The left ventricular diastolic function is grade I diastolic dysfunction. 6. E/e' 11 is mildly elevated. 7. Left atrial chamber dimension is severely enlarged. 8. There is moderate aortic valve sclerosis. 9. There is mild aortic valve regurgitation. 10. The mitral valve has mildly calcified annulus. 11. There is trace mitral valve regurgitation. 12. There is trace tricuspid valve regurgitation. 13. Moderate pulmonary hypertension, estimated pulmonary arterial systolic pressure is 51 mmHg. Left Ventricle E/e' 11 is mildly elevated. Left ventricular chamber dimension is normal. Left ventricular systolic function is normal, estimated at 60-65%. There is mild concentric increased left ventricular wall thickness. The left ventricular diastolic function is grade I diastolic dysfunction. Right Ventricle Right ventricular systolic function is normal and with normal TAPSE 2.6 cm. Right ventricular chamber dimension is normal. Left Atria Left atrial chamber dimension is severely enlarged. Right Atria Right atrial chamber dimension is normal. Aortic Valve The aortic valve is trileaflet. There is moderate aortic valve sclerosis. There is no aortic valve stenosis. There is mild aortic valve regurgitation. Pulmonic Valve There is no pulmonic regurgitation. Mitral Valve The mitral valve has mildly calcified annulus. There is no mitral valve stenosis. There is trace mitral valve regurgitation. Tricuspid Valve There is trace tricuspid valve regurgitation. Moderate pulmonary hypertension, estimated pulmonary arterial systolic pressure is 51 mmHg. Pericardium/Pleural There is no pericardial effusion. Inferior Vena Cava Normal inferior vena cava with >50% collapse upon inspiration consistent with normal right atrial pressure, 5 mmHg. Aorta The aortic root size at the sinus of Valsalva is normal. Left Ventricular Outflow Tract Name Value Normal LVOT 2D LVOT Diameter 2.0 cm LVOT Doppler LVOT Peak Velocity 88 cm/s LVOT Peak Gradient 3 mmHg LVOT Mean Gradient 2 mmHg LVOT VTI 25 cm LVOT VTI/AV VTI Ratio 0.7 LVOT Stroke Volume 79 ml LVOT CO 5.8 l/min LVOT CI 2.8 l/min/m2 Pulmonic Valve Name Value Normal RVOT Doppler RVOT Peak Gradient 2 mmHg PV Doppler PV Peak Velocity 114 cm/s PV Peak Gradient 5 mmHg Mitral Valve Name Value Normal MV Doppler MV Decel [place] 305 cm/s2 MV PHT 66 ms MV Area (PHT) 3.4 cm2 4.0-5.0 MV Diastolic Function MV E Peak Velocity 69 cm/s MV A Peak Velocity 76 cm/s MV E/A 0.9 MV Decel Time 226 ms MV Annular TDI MV Septal e' Velocity 4.1 cm/s >=8.0 MV E/e' (Septal) 16.8 <=8.0 MV Lateral e' Velocity 8.4 cm/s >=10.0 MV E/e' (Lateral) 8.2 <=8.0 MV e' Average 6.27 MV E/e' (Average) 12.5 Tricuspid Valve Name Value Normal TV Regurgitation Doppler TR Peak Velocity 340 cm/s TR Peak Gradient 34 mmHg Estimated PAP/RSVP RA Pressure 5 mmHg <=5 PA Systolic Pressure 51 mmHg <36 RV Systolic Pressure 51 mmHg <36 TV Annular TDI TV Lateral Odette s' Velocity 12.2 cm/s 9.5-18.7 Aortic Valve Name Value Normal AV Doppler AV Peak Velocity 133 cm/s AV Peak Gradient 7 mmHg AV Mean Gradient 4 mmHg AV VTI 35 cm AV Area (Cont Eq VTI) 2.2 cm2 >=3.0 AV Area (Cont Eq Castillo) 2.1 cm2 AV V1/V2 Ratio 0.66 AV Regurgitation 2D LVOT Area 3.1 cm2 Ventricles Name Value Normal LV Dimensions 2D/MM IVS Diastolic Thickness (2D) 1.1 cm 0.6-1.0 LVID Diastole (2D) 4.9 cm 3.8-5.2 LVIW Diastolic Thickness (2D) 1.0 cm 0.6-0.9 LVID Systole (2D) 3.6 cm 2.2-3.5 LVOT Diameter 2.0 cm LV Mass (2D Cubed) 180.07 g 67.00-162.00 LV Mass Index (2D Cubed) 87 g/m2 43-95 Relative Wall Thickness (2D) 0.40 LV Fractional Shortening/Ejection Fraction 2D/MM LV Fractional Shortening (2D) 27 % 27-45 LV EF (2D Teicholz) 53 % 54-74 LV Diastolic Volume (4C MOD) 149 ml LV EF (4C MOD) 64 % LV Diastolic Volume (2C MOD) 116 ml LV EF (2C MOD) 52 % LV Diastolic Volume (BP MOD) 134 ml 46-106 LV Diastolic Volume Index (BP MOD) 65 ml/m2 29-61 LV Systolic Volume (BP MOD) 56 ml 14-42 LV Systolic Volume Index (BP MOD) 27 ml/m2 8-24 LV EF (BP MOD) 58 % 54-74 LV Diastolic Length (4C) 7.4 cm LV Systolic Length (4C) 6.0 cm LV Stroke Volume (4C MOD) 95 ml Atria Name Value Normal LA Dimensions LA Volume (4C A-L) 116 ml LA Volume (BP A-L) 101 ml RA Dimensions RA Area (4C) 19.6 cm2 <=18.0 Report Signatures
[2024-07-05 10:44] LABS: Alanine Aminotransferase 26 U/L (14-59); Albumin Level 2.9 g/dL (3.4-5.0); Alkaline Phosphatase 105 U/L (46-116); Aspartate Amino Transferase 16 U/L (15-37); Bilirubin,Total 0.2 mg/dL (0.00-1.00); Blood Urea Nitrogen 43 mg/dL (7-18); Calcium 9.3 mg/dL (8.5-10.1); Glucose 121 mg/dL (70-99); Osmolality Calculated 301 mOsm/kg (285-295); Total Protein 7.5 g/dL (6.4-8.2)
[2024-07-05 12:02] LABS: Glucose Point of Care 172 mg/dl (65-105)
[2024-07-05 17:05] LABS: Glucose Point of Care 232 mg/dl (65-105)
[2024-07-05] MEDS: INSULIN HUMAN LISPRO (*BKC) 1,000 UNITS/10 ML VIAL SUB-Q (17:34)
[2024-07-05] MEDS: ALPRAZolam (*CRX) 0.5 MG TABLET PO (20:53)
[2024-07-05] MEDS: SERTRALINE HCL 25 MG TABLET PO (20:53)
[2024-07-05 21:25] LABS: Glucose Point of Care 219 mg/dl (65-105)
[2024-07-06] VITALS (13 sets, daily range): BP systolic 132–151; BP diastolic 55–64; PULSE 66–87; RESP 16–20; TEMP 36.4–36.6; O2SAT 88–98
[2024-07-06] MEDS: BUDESONIDE/FORMOTEROL (*SP) 160-4.5 MCG 6 GM INH 2 PUFF INHALATION ×2 (05:54→16:55)
[2024-07-06] MEDS: IPRATROPIUM 0.5 MG/ALBUTEROL SULFATE 2.5 MG AMPUL.NEB 3 ML INHALATION ×3 (05:54→16:55)
[2024-07-06 06:00] LABS: Basophils Absolute Auto 0.04 K/mm3 (0.00-0.10); Basophils Percent Auto 0.4 % (0.0-1.0); Eosinophils Absolute Auto 0.08 K/mm3 (0.02-0.50); Eosinophils Percent Auto 0.7 % (1.0-6.0); Hematocrit 41.2 % (35.0-42.0); Immature Granulocyte Absolute 0.03 K/mm3 (0.00-0.00); Immature Granulocyte Percent A 0.3 % (0.0-0.0); Lymphocytes Absolute Auto 2.65 K/mm3 (1.10-4.50); Lymphocytes Percent Auto 23.6 % (18.0-42.0); Mean Corpuscular HGB Conc 31.6 g/dL (32-36); Mean Corpuscular Volume 98.1 fL (78.0-102.0); Mean Platelet Volume 9.5 fl (9.2-11.8); Monocytes Absolute Auto 0.86 K/mm3 (0.10-0.90); Monocytes Percent Auto 7.6 % (2.0-11.0); Neutrophils Absolute Auto 7.59 K/mm3 (1.70-7.20); Neutrophils Percent Auto 67.4 % (50.0-70.0); Platelet Count Result 421 K/mm3 (150-420); Red Cell Distribution Width 13.5 % (11.6-14.4); White Blood Count 11.3 K/mm3 (4.8-10.8)
[2024-07-06] MEDS: LEVOTHYROXINE SODIUM 75 MCG TABLET PO (06:11)
[2024-07-06] MEDS: CLOTRIMAZOLE 10 MG TROC PO ×2 (06:11→17:07)
[2024-07-06 07:58] LABS: Glucose Point of Care 135 mg/dl (65-105)
[2024-07-06] MEDS: predniSONE 20 MG TABLET 40 MG PO (08:47)
[2024-07-06] MEDS: guaiFENesin 12 HR 600 MG TABCR PO ×2 (08:47→20:42)
[2024-07-06] MEDS: METOPROLOL TARTRATE 50 MG TAB 100 MG PO ×2 (08:48→20:41)
[2024-07-06] MEDS: LORATADINE 10 MG TABLET PO (08:49)
[2024-07-06] MEDS: LOSARTAN POTASSIUM 50 MG TABLET 100 MG PO (08:49)
[2024-07-06] MEDS: CLOPIDOGREL BISULFATE 75 MG TABLET PO (08:49)
[2024-07-06] MEDS: AZITHROMYCIN 250 MG TABLET 500 MG PO (08:50)
[2024-07-06] MEDS: CYANOCOBALAMIN 1,000 MCG TABLET 1000 MCG PO (08:51)
[2024-07-06] MEDS: ENOXAPARIN 30 MG/0.3 ML SYRINGE SUB-Q (08:51)
[2024-07-06] MEDS: FUROSEMIDE INJ 20 MG/2 ML VIAL IV PUSH (08:51)
[2024-07-06] MEDS: TIMOLOL MALEATE 0.5% OP SOLN 5 ML BOTTLE 1 DROP EACH EYE (08:52)
--- NOTE | 2024-07-06 09:52 | P.PNIM_ITS ---
Progress Note: A&P Assessment and Plan (1) Acute respiratory failure with hypoxia: Code(s): J96.01 - Acute respiratory failure with hypoxia Status: Acute Assessment and Plan: patient presented with worsening shortness a breath was found to have acute respiratory failure with hypoxia saturations in the mid 80s was placed on 4 L nasal cannula which brought her oxygen saturations in the mid 90s. CTA was neg ative for PE however showing increasing ground-glass opacities throughout both lungs could be progressing chronic interstitial lung disease, hypersensitivity pneumonitis, pulmonary edema or pneumonia. Will treat multifocal for ILD progression with pneumonitis as well as CHF possible new onset due to elevated BNP and bilateral lower extremity swelling. * Continue to wean O2 for sat greater than 92% * chest x-ray today showed probable chronic interstitial disease with improvement of ground-glass opacity since prior exam * antibiotics changed to Levaquin x4 more days * continue incentive spirometry every 2 hours while awake * will add pep therapy * will add Robitussin with codeine for use at night to calm cough (2) ILD (interstitial lung disease): Code(s): J84.9 - Interstitial pulmonary disease, unspecified Status: Acute Assessment and Plan: patient reported she has been by oncologist since likely secondary to radiation/chemo ILD CTA showing progressive interstitial lung disease related to pneumonitis, pneumonia versus pulmonary edema * continue to wean O2 for sat greater than 92% * continue DuoNebs q.6 hours * continue incentive spirometry every 2 hours while awake * will add pep therapy today * continue Mucinex and bronchodilators * continue prednisone 40 mg daily * antibiotics changed to Levaquin for another 4 days for CAP coverage * will need Follow-up with rug hooker hand as an outpatient for PFT testing * may need home O2 upon discharge (3) CHF (congestive heart failure): Qualifiers: Heart failure chronicity: unspecified Heart failure type: unspecified Qualified Code(s): I50.9 - Heart failure, unspecified Code(s): I50.9 - Heart failure, unspecified Status: Acute Assessment and Plan: * echocardiogram showed normal LV systolic function with an estimated EF of 60- 65%, grade 1 diastolic dysfunction with moderate pulmonary hypertension * chest x-ray today showing probable chronic interstitial disease with improvement in ground glass opacities since prior exam * continue strict I&O * obtain daily weight * discontinue cardiac monitoring * continue use of compression stockings and elevate lower extremities * continue fall precautions * will hold IV Lasix today * Will need Cardiology follow up as outpatient. (4) Hypertension: Code(s): I10 - Essential (primary) hypertension Status: Acute Assessment and Plan: * blood pressure ranging 125/62 to 141/55 * amlodipine discontinued due to lower extremity swelling * continue metoprolol * will hold losartan due to MICHELLE this morning (5) Diabetes mellitus: Code(s): E11.9 - Type 2 diabetes mellitus without complications Status: Acute Assessment and Plan: * Blood sugars ranging ranging 117-232 * Hgb A1C 6.3 on 07/03/2024 * Accu checks AC/HS * low-dose SSI ordered * continue to hold glimepiride * hypoglycemic protocol in place * Diabetic diet ordered (6) MICHELLE (acute kidney injury): Code(s): N17.9 - Acute kidney failure, unspecified Status: Acute Assessment and Plan: might be secondary to over diuresis * creatinine today 1.12 up from 0.67 yesterday * avoid nephrotoxic medications * will hold Lasix and losartan (7) Acute UTI: Code(s): N39.0 - Urinary tract infection, site not specified Status: Acute Assessment and Plan: * urine culture negative * antibiotics discontinued (8) Elevated d-dimer: Code(s): R79.89 - Other specified abnormal findings of blood chemistry Status: Ruled-out Assessment and Plan: * D-dimer elevated 2.19 * CTA negative for PE * venous Dopplers negative for DVT (9) Depression: Code(s): F32.A - Depression, unspecified Status: Acute Assessment and Plan: * continue sertraline 25 mg daily Time Spent With Patient Time with patient: 25 - 35 minutes Subjective Date/time seen: 07/06/24 09:52 Interval history: Patient reports productive cough and still remains on 1L NC. She states she did not sleep very well due to coughing fits. Labs and imaging reviewed. CXR showing improvement. Creatinine bumped today 1.12. Review of Systems Review of Systems: All systems reviewed & are unremarkable except as noted in HPI and below Exam Narrative: General: In no acute distress, well nourished Head: atraumatic, no encephalopathy Eyes:PERRLA, sclera clear ENT: moist mucous membranes, nasal passages clear Neck: supple, no JVD, no adenopathy, trachea midline Cardiac: Normal S1 and S2. RRR, No murmur, gallops or friction rubs, peripheral pulses intact. Respiratory: Mild expiratory wheezing throughout all lung penny, crackles noted in RLL, currently on 1LNC, reports productive cough with thick sputum Gastrointestinal: soft, non-distended, non-tender, normoactive bowel sounds. : voiding without difficulty. Extremities: moves all extremities well, 1+ pitting edema BLE Skin: clean, dry, intact. No wounds or lesions. Neuro: Alert and oriented x4, cranial nerves intact, no neuro deficits. Psych: normal mood, normal affect, interactive Objective Data Vital Signs Vital Signs: Vital Signs - 24 hr 07/05/24 12:00 07/05/24 12:00 07/05/24 13:00 Temperature 97.2 F L Pulse Rate 79 78 68 Respiratory Rate 14 16 Blood Pressure 130/62 Pulse Oximetry 94 95 Oxygen Delivery Nasal Cannula Oxygen Flow Rate 1.5 1 Fraction of Inspired Oxygen 07/05/24 13:07 07/05/24 16:30 07/05/24 16:30 Temperature 97.2 F L Pulse Rate 70 69 73 Respiratory Rate 16 18 Blood Pressure 125/62 Pulse Oximetry 98 94 Oxygen Delivery Nasal Cannula Oxygen Flow Rate 1.5 Fraction of Inspired Oxygen 07/05/24 16:45 07/05/24 16:55 07/05/24 19:38 Temperature Pulse Rate 70 72 72 Respiratory Rate 16 16 Blood Pressure Pulse Oximetry 98 98 Oxygen Delivery Oxygen Flow Rate 1 Fraction of Inspired Oxygen 07/05/24 20:00 07/05/24 20:53 07/05/24 21:00 Temperature 97.2 F L Pulse Rate 88 76 Respiratory Rate 17 Blood Pressure 131/62 Pulse Oximetry 95 95 Oxygen Delivery Nasal Cannula Nasal Cannula Oxygen Flow Rate 1.5 1.5 Fraction of Inspired Oxygen 07/05/24 21:30 07/05/24 22:11 07/05/24 23:32 Temperature Pulse Rate Respiratory Rate Blood Pressure Pulse Oximetry 93 86 L 93 Oxygen Delivery Room Air Room Air Oxygen Flow Rate 1.5 Fraction of Inspired Oxygen 07/05/24 23:38 07/05/24 23:40 07/05/24 23:45 Temperature 97.3 F L Pulse Rate 67 70 Respiratory Rate 18 Blood Pressure 124/53 L Pulse Oximetry 97 Oxygen Delivery Nasal Cannula Oxygen Flow Rate 1.5 1.5 Fraction of Inspired Oxygen 07/06/24 03:49 07/06/24 04:00 07/06/24 05:30 Temperature 97.8 F Pulse Rate 69 74 70 Respiratory Rate 20 16 Blood Pressure 132/55 L Pulse Oximetry 91 98 Oxygen Delivery Nasal Cannula Nasal Cannula Oxygen Flow Rate 1.5 1 Fraction of Inspired Oxygen 24 07/06/24 05:50 07/06/24 06:10 07/06/24 08:00 Temperature Pulse Rate 67 70 87 Respiratory Rate 16 16 20 Blood Pressure Pulse Oximetry 98 98 88 L Oxygen Delivery Room Air Oxygen Flow Rate 1 Fraction of Inspired Oxygen 07/06/24 08:00 07/06/24 08:00 07/06/24 08:48 Temperature 97.9 F Pulse Rate 87 87 87 Respiratory Rate 20 Blood Pressure 141/55 H Pulse Oximetry 93 Oxygen Delivery Nasal Cannula Oxygen Flow Rate 1 Fraction of Inspired Oxygen Intake/Output Intake/Output: Intake & Output 07/03/24 07/04/24 07/05/24 07/06/24 23:59 23:59 23:59 23:59 Intake Total 2105 1630 1840 800 Output Total 1800 1100 3125 1600 Balance 305 545 -1288 -800 Meds/Results Medications: Active Medications Generic Name Dose Route Start Last Admin Trade Name Freq PRN Reason Stop Dose Admin Acetaminophen 650 mg 07/02/24 16:04 Acetaminophen 325 Mg Tablet PO Q4H PRN Mild Pain (1-3) or Fever Hydrocodone Bitart/Acetaminophen 1 tab 07/02/24 16:04 Hydrocodone/Acetaminophen (*Crx) 5-325 Mg Tablet PO Q4H PRN Moderate Pain (4-6) Albuterol 2 puff 07/02/24 16:03 07/04/24 06:43 Albuterol Sulfate (*Sp) Inhaler INHALATION 2 puff Q6H PRN Administration Shortness Of Breath Or Wheezing Albuterol/Ipratropium 3 ml 07/03/24 12:30 07/06/24 05:54 Ipratropium 0.5 Mg/Albuterol Sulfate 2.5 Mg Ampul.Neb 3 Ml INHALATION 3 ml Q6HRT VANESSA Administration Alprazolam 0.5 mg 07/02/24 21:00 07/05/24 20:53 Alprazolam (*Crx) 0.5 Mg Tablet PO 0.5 mg HS VANESSA Administration Atorvastatin Calcium 10 mg 07/03/24 09:00 07/05/24 09:07 Atorvastatin 10 Mg Tablet PO 10 mg Q48H VANESSA Administration Budesonide/Formoterol Fumarate 2 puff 07/03/24 06:30 07/06/24 05:54 Budesonide/Formoterol (*Sp) 160-4.5 Mcg 6 Gm Inh INHALATION 2 puff Q12HRT VANESSA Administration Clopidogrel Bisulfate 75 mg 07/03/24 09:00 07/06/24 08:49 Clopidogrel Bisulfate 75 Mg Tablet PO 75 mg DAILY VANESSA Administration Clotrimazole 10 mg 07/03/24 07:00 07/06/24 06:11 Clotrimazole 10 Mg Troc PO 10 mg Q12H VANESSA Administration Cyanocobalamin 1,000 mcg 07/03/24 09:00 07/06/24 08:51 Cyanocobalamin 1,000 Mcg Tablet PO 1,000 mcg QAM VANESSA Administration Dextrose 12.5 gm 07/02/24 16:08 Dextrose 50% 25 Gm/50 Ml Syringe IV PUSH PRN PRN Hypoglycemia Protocol Enoxaparin Sodium 30 mg 07/03/24 09:00 07/06/24 08:51 Enoxaparin 30 Mg/0.3 Ml Syringe SUB-Q 30 mg DAILY VANESSA Administration Furosemide 20 mg 07/02/24 17:00 07/06/24 08:51 Furosemide Inj 20 Mg/2 Ml Vial IV PUSH 20 mg BID VANESSA Administration Glucagon 1 mg 07/02/24 16:08 Glucagon For Inj 1 Mg Vial IM PRN PRN Hypoglycemia Protocol Glucose 15 gm 07/02/24 16:08 Glucose Oral Gel 15 Gm Of Glucse In 37.5 Gm Tube PO PRN PRN Hypoglycemia Protocol Guaifenesin 600 mg 07/03/24 09:00 07/06/24 08:47 Guaifenesin 12 Hr 600 Mg Tabcr PO 600 mg Q12HR VANESSA Administration Dextrose 1,000 mls @ 100 mls/hr 07/02/24 16:08 Dextrose 5% 1,000 Ml IVPB PRN PRN Hypoglycemia Protocol Insulin Human Lispro 2 - 5 units 07/02/24 17:00 07/06/24 07:54 Insulin Human Lispro (*Bkc) 1,000 Units/10 Ml Vial SUB-Q Not Given TIDWM VANESSA Protocol Levofloxacin 500 mg/ 750 mg 07/07/24 09:00 Levofloxacin 250 mg PO 07/10/24 09:00 DAILY VANESSA Levothyroxine Sodium 75 mcg 07/03/24 06:30 07/06/24 06:11 Levothyroxine Sodium 75 Mcg Tablet PO 75 mcg DAILY@0630 VANESSA Administration Levothyroxine Sodium 75 mcg 07/03/24 06:30 07/03/24 06:08 Levothyroxine Sodium 75 Mcg Tablet PO 75 mcg Calderon@0630 VANESSA Administration Loratadine 10 mg 07/03/24 09:00 07/06/24 08:49 Loratadine 10 Mg Tablet PO 10 mg DAILY VANESSA Administration Losartan Potassium 100 mg 07/03/24 09:00 07/06/24 08:49 Losartan Potassium 50 Mg Tablet PO 100 mg QAM VANESSA Administration Metoprolol Tartrate 100 mg 07/03/24 09:00 07/06/24 08:48 Metoprolol Tartrate 50 Mg Tab PO 100 mg Q12HR VANESSA Administration Ondansetron HCl 4 mg 07/02/24 16:04 Ondansetron Inj 4 Mg/2 Ml Vial IV PUSH Q6H PRN Nausea And Vomiting Prednisone 40 mg 07/03/24 10:40 07/06/24 08:47 Prednisone 20 Mg Tablet PO 40 mg DAILY@0800 VANESSA Administration Sertraline HCl 25 mg 07/04/24 21:00 07/05/24 20:53 Sertraline Hcl 25 Mg Tablet PO 25 mg QHS VANESSA Administration Timolol Maleate 1 drop 07/03/24 09:00 07/06/24 08:52 Timolol Maleate 0.5% Op Soln 5 Ml Bottle EACH EYE 1 drop QAM VANESSA Administration Radiology Results: ITS Impressions Chest X-Ray 07/02/24 13:30 IMPRESSION: 1. Stable appearance of chronic interstitial lung disease with peripheral and basilar predominance. Chest CTA 07/03/24 09:59 IMPRESSION: 1. No pulmonary embolism. 2. Usual interstitial pneumonia (UIP) pattern chronic interstitial lung disease with increasing round glass opacities throughout both lungs. This could be due to atelectasis related to suboptimal inspiratory effort, progression of the chronic interstitial lung disease, hypersensitivity pneumonitis, pulmonary edema or pneumonia. 3. Small sliding-type hiatal hernia. Venous Doppler Study 07/04/24 08:29 IMPRESSION: Negative bilateral lower extremity venous US. No deep vein thrombosis. Labs Labs: Laboratory Results - last 24 hr 07/05/24 07/05/24 07/05/24 07:52 11:58 17:01 WBC RBC Hgb Hct MCV MCH MCHC RDW Plt Count MPV Immature Gran % (Auto) Neut % (Auto) Lymph % (Auto) [place] % (Auto) Eos % (Auto) Baso % (Auto) Lymph # (Auto) [place] # (Auto) Eos # (Auto) Baso # (Auto) Abs Immat Gran (auto) Absolute Neuts (auto) Absolute Nucleated RBC Nucleated RBC % Sodium 140 Potassium 4.8 Chloride 106 Carbon Dioxide 27 Anion Gap 7 BUN 43 H Creatinine 0.67 Estim Creat Clear Calc 57 Estimated GFR > 60 Glucose 121 H POC Capillary Glucose 172 H 232 H Calculated Osmolality 301 H Calcium 9.3 Total Bilirubin 0.2 AST 16 ALT 26 Alkaline Phosphatase 105 Total Protein 7.5 Albumin 2.9 L 07/05/24 07/06/24 07/06/24 21:23 05:07 07:53 WBC 11.3 H RBC 4.20 Hgb 13.0 Hct 41.2 MCV 98.1 MCH 31.0 MCHC 31.6 L RDW 13.5 Plt Count 421 H MPV 9.5 Immature Gran % (Auto) 0.3 H Neut % (Auto) 67.4 Lymph % (Auto) 23.6 [place] % (Auto) 7.6 Eos % (Auto) 0.7 L Baso % (Auto) 0.4 Lymph # (Auto) 2.65 [place] # (Auto) 0.86 Eos # (Auto) 0.08 Baso # (Auto) 0.04 Abs Immat Gran (auto) 0.03 H Absolute Neuts (auto) 7.59 H Absolute Nucleated RBC 0.00 Nucleated RBC % 0.0 Sodium Potassium Chloride Carbon Dioxide Anion Gap BUN Creatinine Estim Creat Clear Calc Estimated GFR Glucose POC Capillary Glucose 219 H 135 H Calculated Osmolality Calcium Total Bilirubin AST ALT Alkaline Phosphatase Total Protein Albumin Quality VTE Prophylaxis VTE prophylaxis: pharmacologic ordered
[2024-07-06 10:05] LABS: Alanine Aminotransferase 18 U/L (6-35); Albumin Level 3.4 g/dL (3.5-5.1); Alkaline Phosphatase 100 U/L (38-126); Anion Gap 10 mmol/L (4-12); Aspartate Amino Transferase 19 U/L (14-36); Bilirubin,Total 0.2 mg/dL (0.2-1.3); Blood Urea Nitrogen 44 mg/dL (7-17); Calcium 9.2 mg/dL (8.4-10.2); Carbon Dioxide 26 mmol/L (22-30); Chloride 103 mmol/L (98-107); Estimated CRCL calculation 35 ml/min; Estimated Glomerular Filt Rate 46; Glucose 117 mg/dL (65-110); Osmolality Calculated 300 mOsm/kg (285-295); Potassium 4.2 mmol/L (3.4-5.0); Sodium 139 mmol/L (137-145)
[2024-07-06 11:34] LABS: Glucose Point of Care 195 mg/dl (65-105)
[2024-07-06 17:05] LABS: Glucose Point of Care 196 mg/dl (65-105)
[2024-07-06] MEDS: guaiFENesin/CODEINE 100/10 MG 5 ML SYRUP 10 ML PO (20:41)
[2024-07-06 20:42] LABS: Glucose Point of Care 255 mg/dl (65-105)
[2024-07-06] MEDS: ALPRAZolam (*CRX) 0.5 MG TABLET PO (20:42)
[2024-07-06] MEDS: SERTRALINE HCL 25 MG TABLET PO (20:43)
[2024-07-07] VITALS: BP 130/51; PULSE 62; RESP 20; TEMP 36.4; O2SAT 93
[2024-07-07] MEDS: IPRATROPIUM 0.5 MG/ALBUTEROL SULFATE 2.5 MG AMPUL.NEB 3 ML INHALATION ×2 (00:08→06:52)
[2024-07-07 00:12] VITALS: PULSE 62; RESP 20; O2SAT 93
[2024-07-07 00:18] VITALS: PULSE 67; RESP 20; O2SAT 97
[2024-07-07 05:25] LABS: Basophils Absolute Auto 0.03 K/mm3 (0.00-0.10); Basophils Percent Auto 0.3 % (0.0-1.0); Eosinophils Absolute Auto 0.11 K/mm3 (0.02-0.50); Eosinophils Percent Auto 1.2 % (1.0-6.0); Hematocrit 37.6 % (35.0-42.0); Hemoglobin 11.7 g/dL (11.7-13.8); Immature Granulocyte Absolute 0.03 K/mm3 (0.00-0.00); Immature Granulocyte Percent A 0.3 % (0.0-0.0); Lymphocytes Absolute Auto 2.81 K/mm3 (1.10-4.50); Lymphocytes Percent Auto 29.7 % (18.0-42.0); Mean Corpuscular HGB Conc 31.1 g/dL (32-36); Mean Corpuscular Hemoglobin 30.5 pg (27.0-31.0); Mean Corpuscular Volume 98.2 fL (78.0-102.0); Mean Platelet Volume 9.4 fl (9.2-11.8); Monocytes Percent Auto 8.5 % (2.0-11.0); Neutrophils Absolute Auto 5.68 K/mm3 (1.70-7.20); Platelet Count Result 362 K/mm3 (150-420); Red Blood Count 3.83 M/mm3 (4.20-5.40); Red Cell Distribution Width 13.5 % (11.6-14.4); White Blood Count 9.5 K/mm3 (4.8-10.8)
[2024-07-07] MEDS: LEVOTHYROXINE SODIUM 75 MCG TABLET PO (06:11)
[2024-07-07] MEDS: BUDESONIDE/FORMOTEROL (*SP) 160-4.5 MCG 6 GM INH 2 PUFF INHALATION (06:14)
[2024-07-07] MEDS: CLOTRIMAZOLE 10 MG TROC PO (06:18)
[2024-07-07 06:54] VITALS: RESP 18; O2SAT 94
[2024-07-07 07:47] LABS: Alanine Aminotransferase 17 U/L (6-35); Alkaline Phosphatase 80 U/L (38-126); Anion Gap 5 mmol/L (4-12); Aspartate Amino Transferase 34 U/L (14-36); Bilirubin,Total 0.2 mg/dL (0.2-1.3); Blood Urea Nitrogen 41 mg/dL (7-17); Calcium 8.4 mg/dL (8.4-10.2); Carbon Dioxide 27 mmol/L (22-30); Chloride 105 mmol/L (98-107); Estimated CRCL calculation 36 ml/min; Estimated Glomerular Filt Rate 48; Glucose 107 mg/dL (65-110); Osmolality Calculated 294 mOsm/kg (285-295); Potassium 3.9 mmol/L (3.4-5.0); Sodium 137 mmol/L (137-145)
[2024-07-07 07:47] LABS: Glucose Point of Care 123 mg/dl (65-105)
[2024-07-07 08:00] VITALS: BP 125/58; PULSE 72; RESP 18; TEMP 36.4; O2SAT 94
[2024-07-07] MEDS: ENOXAPARIN 30 MG/0.3 ML SYRINGE SUB-Q (08:09)
[2024-07-07] MEDS: TIMOLOL MALEATE 0.5% OP SOLN 5 ML BOTTLE 1 DROP EACH EYE (08:10)
[2024-07-07] MEDS: ATORVASTATIN 10 MG TABLET PO (08:10)
[2024-07-07] MEDS: CLOPIDOGREL BISULFATE 75 MG TABLET PO (08:10)
[2024-07-07 08:11] VITALS: PULSE 72
[2024-07-07] MEDS: predniSONE 20 MG TABLET 40 MG PO (08:11)
[2024-07-07] MEDS: METOPROLOL TARTRATE 50 MG TAB 100 MG PO (08:11)
[2024-07-07] MEDS: CYANOCOBALAMIN 1,000 MCG TABLET 1000 MCG PO (08:11)
[2024-07-07] MEDS: LORATADINE 10 MG TABLET PO (08:12)
[2024-07-07] MEDS: guaiFENesin 12 HR 600 MG TABCR PO (08:12)
--- NOTE | 2024-07-07 10:22 | P.DS_ITS ---
DS: Admitting Diagnosis Discharge Date 07/07/24 Admitting Diagnosis acute hypoxic respiratory failure interstitial lung disease CHF hypertension diabetes mellitus MICHELLE elevated D-dimer acute UTI DS: Discharge Diagnosis Discharge Diagnosis (1) Acute respiratory failure with hypoxia: Code(s): J96.01 - Acute respiratory failure with hypoxia Status: Acute (2) ILD (interstitial lung disease): Code(s): J84.9 - Interstitial pulmonary disease, unspecified Status: Acute (3) CHF (congestive heart failure): Qualifiers: Heart failure chronicity: unspecified Heart failure type: unspecified Qualified Code(s): I50.9 - Heart failure, unspecified Code(s): I50.9 - Heart failure, unspecified Status: Acute (4) Hypertension: Code(s): I10 - Essential (primary) hypertension Status: Acute (5) Diabetes mellitus: Code(s): E11.9 - Type 2 diabetes mellitus without complications Status: Acute (6) MICHELLE (acute kidney injury): Code(s): N17.9 - Acute kidney failure, unspecified Status: Acute (7) Acute UTI: Code(s): N39.0 - Urinary tract infection, site not specified Status: Acute (8) Elevated d-dimer: Code(s): R79.89 - Other specified abnormal findings of blood chemistry Status: Ruled-out (9) Depression: Code(s): F32.A - Depression, unspecified Status: Acute DS: Summary Hospital Course Reason for hospitalization: acute hypoxic respiratory failure interstitial lung disease CHF hypertension diabetes mellitus MICHELLE elevated D-dimer acute UTI Hospital Course: this is an 88-year-old female with a significant past medical history of carotid stenosis, depression, hypothyroidism, diabetes mellitus, hypertension, peripheral vascular disease, Smith's palsy who presented with shortness of breath/dyspnea. Workup in the hospital included a chest x-ray which showed chronic interstitial lung disease. Chest CTA was negative for any pulmonary embolism, shown interstitial pneumonia, small sliding hiatal hernia. Venous Dopplers were negative for DVT. Initial labs initial labs showed a normal white blood cell count of 8.6, D-dimer 2.19, sodium 135, creatinine 1.45, EGFR 34, blood sugars ranging 94-254, lactic acid was 2.6, alkaline phosphate 124, proBNP 1407. UA was obtained which showed brown cloudy urine, trace protein, 3+ leukocytes, 6-10 urine RBC, 31-50 urine wbc's, moderate urine squamous epithelial cells, 3+ urine bacteria. Blood cultures are showing no growth to date on preliminary read, urine culture was negative for UTI. EKG showed sinus rhythm with a rate of 66, QTC 453. Echocardiogram showed normal LV systolic function with an estimated EF of 60-65%, grade 1 diastolic dysfunction, moderate pulmonary hypertension with an estimated pulmonary arterial systolic pressure of 51 mmHg. Patient was placed on Rocephin and azithromycin and then transitioned over to Levaquin for community-acquired pneumonia coverage. Chest x-ray on 07/06/2024 showed improvement in her pneumonia. She was also given IV Lasix for diuresis over the 1st couple of days and then sustained and acute kidney injury from over-diuresis. Lasix was discontinued and this morning her creatinine is trending back to baseline. Patient has had a productive cough and has remained on 1-2 L nasal cannula. She may require home O2 eval upon discharge from swing bed As she has some underlying interstitial lung disease. she will also need to follow up with a software integration developer and a railroad detective on an outpatient basis. She is stable for discharge to swing bed at this time. final diagnosis: acute respiratory failure with hypoxia, interstitial lung disease, pneumonia, acute UTI, acute kidney injury Status at Discharge Cognitive/behavioral status at discharge: alert oriented x3 Functional status at discharge: uses cane/walker Overall status at discharge: patient is progressing back to baseline Time Spent with Patient Time attestation: Total time spent providing and/or coordinating discharge services: Time spent: Greater than 30 minutes Exam Narrative: General: In no acute distress, well nourished Cardiac: Normal S1 and S2. RRR, No murmur, gallops or friction rubs, peripheral pulses intact. Respiratory: Mild inspiratory and expiratory wheezing throughout all lung penny, rhonchi crackles noted in RLL, currently on 1LNC, productive cough with thick sputum Gastrointestinal: soft, non-distended, non-tender, normoactive bowel sounds. : voiding without difficulty. Extremities: moves all extremities well, 1+ pitting edema BLE Neuro: Alert and oriented x4 DS: Data Data Completed and Pending Completed studies during hospitalization: chest x-ray chest CTA venous Doppler study Pending studies at discharge: blood cultures Labs on day of discharge: Labs from last 24 hours 07/07/24 07/07/24 07/06/24 07:40 05:10 20:42 WBC 9.5 RBC 3.83 L Hgb 11.7 Hct 37.6 MCV 98.2 MCH 30.5 MCHC 31.1 L RDW 13.5 Plt Count 362 MPV 9.4 Immature Gran % (Auto) 0.3 H Neut % (Auto) 60.0 Lymph % (Auto) 29.7 [place] % (Auto) 8.5 Eos % (Auto) 1.2 Baso % (Auto) 0.3 Lymph # (Auto) 2.81 [place] # (Auto) 0.80 Eos # (Auto) 0.11 Baso # (Auto) 0.03 Abs Immat Gran (auto) 0.03 H Absolute Neuts (auto) 5.68 Absolute Nucleated RBC 0.00 Nucleated RBC % 0.0 Sodium 137 Potassium 3.9 Chloride 105 Carbon Dioxide 27 Anion Gap 5 BUN 41 H Creatinine 1.08 H Estim Creat Clear Calc 36 Estimated GFR 48 L Glucose 107 POC Capillary Glucose 123 H 255 H Calculated Osmolality 294 Calcium 8.4 Total Bilirubin 0.2 AST 34 ALT 17 Alkaline Phosphatase 80 Total Protein 6.0 L Albumin 3.0 L 07/06/24 07/06/24 07/06/24 17:00 11:29 05:07 WBC RBC Hgb Hct MCV MCH MCHC RDW Plt Count MPV Immature Gran % (Auto) Neut % (Auto) Lymph % (Auto) [place] % (Auto) Eos % (Auto) Baso % (Auto) Lymph # (Auto) [place] # (Auto) Eos # (Auto) Baso # (Auto) Abs Immat Gran (auto) Absolute Neuts (auto) Absolute Nucleated RBC Nucleated RBC % Sodium Potassium Chloride Carbon Dioxide Anion Gap BUN Creatinine Estim Creat Clear Calc Estimated GFR Glucose POC Capillary Glucose 196 H 195 H Calculated Osmolality 300 H Calcium Total Bilirubin AST ALT Alkaline Phosphatase Total Protein Albumin Preliminary micro results at discharge 07/02/24 14:05 Blood Culture - Preliminary Blood 07/02/24 14:01 Blood Culture - Preliminary Blood Procedures/Treatments: none Discharge Plan Discharge Attending physician on discharge: Lillie Ferrara Consulting providers: Monie Wolf; Lynda Patel Discharging Clinician: Lynda Patel Anticipated Discharge Date/Time: 07/07/24 10:16 Patient Disposition: Hospital Swing Bed Activity: as tolerated Diet: as tolerated and heart healthy Patient Instructions: Antibiotic Form Patient Language: Kosovan Stand Alone Forms: General Discharge Information Discharge Medications: New ipratropium-albuterol 0.5 mg-3 mg(2.5 mg base)/3 mL Solution For Nebulization 3 ml inhalation Q6HRT Qty: 3 0RF prednisone 20 mg Tablet 40 mg PO DAILY@0800 Qty: 1 0RF guaifenesin 100 mg/5 mL Liquid 100 mg PO HS Qty: 250 0RF levofloxacin 750 mg Tablet 750 mg PO Q48H Qty: 2 0RF fluticasone propionate 50 mcg/actuation [place],Suspension 2 spray intranasal QAM Qty: 1 0RF sertraline [Zoloft] 50 mg Tablet 25 mg PO QHS Qty: 1 0RF Chloraseptic Sore Throat 6-10 mg Lozenge 1 maci PO PRN PRN (Reason: cough) Qty: 1 0RF guaifenesin [Mucus Relief ER] 600 mg Tablet Extended Release 12hr 600 mg PO Q12HR Qty: 1 0RF Continued levothyroxine 75 mcg tablet See Rx Instructions .ROUTE .COMPLEX Patient Comments: Takes 150mcg on sundays Rx Instructions: TAKE 1 TABLET BY MOUTH EVERY DAY AND TAKE 1 EXTRA TAB ON THURSDAY ergocalciferol (vitamin D2) 1,250 mcg (50,000 unit) capsule 1,250 mcg PO WEEKLY Patient Comments: pt takes on Mondays (DME) nebulizers Misc See Rx Instructions .Route Qty: 1 0RF Rx Instructions: As directed albuterol sulfate 90 mcg/actuation HFA aerosol inhaler 2 puff INHALATION Q6H PRN (Reason: Shortness Of Breath Or Wheezing) 30 Days Qty: 6.7 0RF Rx Instructions: 2 PUFFS WITH SPACER Q6H PRN SOB/COUGH clotrimazole 10 mg kirti 10 mg PO BID Rx Instructions: after using the steroid inhaler budesonide-formoterol 160-4.5 mcg/actuation HFA aerosol inhaler 2 puff INHALATION BID metoprolol tartrate 100 mg tablet 100 mg PO BID clopidogrel 75 mg tablet 75 mg PO DAILY glimepiride 2 mg tablet 3 mg PO QAM Rx Instructions: 1.5 TABLETS (3MG) PO EVERY MORNING alprazolam 0.5 mg tablet 0.5 mg PO HS Patient Comments: Pharmacist confirmed med picked up but patients doesn't remember if she takes it. amlodipine 10 mg tablet 10 mg PO DAILY timolol maleate 0.5 % drops 1 drp EACH EYE QAM atorvastatin 10 mg tablet 10 mg PO EVERY OTHER DAY (DME) Womens daily vitamins 0 .ROUTE .MEDSUPPLY mecobalamin (vitamin B12) [B12 Active] 1,000 mcg tablet,chewable 1,000 mcg PO DAILY loratadine [Claritin] 10 mg tablet 10 mg PO DAILY resveratrol 100 mg capsule 100 mg PO DAILY@0800 Held losartan 100 mg tablet 100 mg PO DAILY Hold Instructions: Resume on 07/08/24. Date of admission: 07/03/24 15:55 Primary Care Provider: Nilesh Nuñez Admitting Provider: Lillie Ferrara Attending physician on admission: Lillie Ferrara Condition: Improved Quality VTE Prophylaxis VTE prophylaxis: pharmacologic ordered Hospitalist MIPS Heart Failure (Exclusion) Patient has history of Heart Transplant or Left Ventricular Assistive Device?: No IF YES, STOP HERE Heart Failure (Qualifier) Patient has current or prior documentation of LVEF less than or equal to 40%, or mod/servere depressed LVSF?: No IF NO, STOP HERE
--- NOTE | 2024-07-07 10:29 | PC.NURSE ---
Patient's SPO2 dropped into the mid 80s with mild exertion while therapy was working with patient. Nurse recommends O2 be increased to 2L per n/c during therapy sessions for now, until patient is saturating better.
== END 2024-07-07 10:21 | disposition swing bed (61) | DRG 196 ==
LOC: CHSED 14:50 → CHS2ND 14:53
PROVIDERS: Internal Medicine; Nurse Practitioner Family; Admitting Provider Internal Medicine; Emergency Provider Emergency Medicine; PCP Internal Medicine; Visit Provider Internal Medicine
DX: J84.9 Interstitial pulmonary disease, unspecified (principal); J96.01 Acute respiratory failure with hypoxia; N17.9 Acute kidney failure, unspecified; N39.0 Urinary tract infection, site not specified; I11.0 Hypertensive heart disease with heart failure; I50.9 Heart failure, unspecified; I27.20 Pulmonary hypertension, unspecified; E11.51 Type 2 diabetes mellitus with diabetic peripheral angiopathy without gangrene; E03.9 Hypothyroidism, unspecified; F32.A Depression, unspecified; Z79.02 Long term (current) use of antithrombotics/antiplatelets; Z85.3 Personal history of malignant neoplasm of breast
CPT/HCPCS: 36415; 71045; 71275; 80053; 81001; 82948; 83036; 83605; 83735; 83880; 84484; 85025; 85380; 85610; 85730; 87040; 87086; 87637; 93005; 93306; 93970; 94640; 94667; 96365; 96367; 96372; 96375; 96376; 97110; 97161; 97165; 97530; 97535; 99285; A9270; G0378; J0696; J1650; J1815; J1938; J1956; J7512; Q9967

== ENCOUNTER 2024-07-07 10:22 | Inpatient (IN) | payer MEDICARE, OTHER, SELFPAY ==
[2024-07-07] VITALS (10 sets, daily range): BP systolic 125–158; BP diastolic 58–76; PULSE 70–78; RESP 16–18; TEMP 36.4; O2SAT 92–98; BMI 32.3
--- NOTE | ~2024-07-07 | XR_ITS ---
XR chest 2V Ordering provider: Jorge A Verdugo APRN History: 88 years Female with . desaturation with activity . Comparison: July 06, 2024 FINDINGS: MEDIASTINUM: The cardiac silhouette is not enlarged. LUNGS: No effusions or pneumothorax. Opacification in the left lower lobe is seen. Minimal opacification the right midzone is noted. OTHER: No free air under the diaphragm. Degenerative changes of the spine. IMPRESSION: Highly suggestive bilateral pneumonia. Underlying fibrotic changes. Reviewed, dictated and finalized at location A.
--- NOTE | 2024-07-07 10:22 | PC.NURSE ---
Patient changed from inpatient status to swing bed status.
--- NOTE | 2024-07-07 11:34 | PC.NURSE ---
Changed to Swing Bed status today at 1022.
[2024-07-07 11:48] LABS: Glucose Point of Care 222 mg/dl (65-105)
--- OUTSIDE RECORDS SUMMARY | 2024-07-07 12:28 | XMS_ITS | Patient Health Record ---
Author Organization [facility] Address [address] [place], [place] [id number] Care Team Providers Care Display Department Manager Name Role Phone OsmanyCHIOMA varghese Unavailable [phone] Nilesh Nuñez Unavailable Unavailable BIANCA MOISE Unavailable [phone] Allergies Allergen (clinical drug ingredient) Drug/Non Drug [...] 09/03/2023 Encounters Encounter Location Date Provider Diagnosis [address] [id number] 07/09/2023 BIANCA MOISE Other hammer toe(s) (acquired), right foot M20.41 ; Tinea unguium B35.1 ; Other hammer toe(s) (acquired), left foot M20.42 ; Pain in right toe(s) M79.674 ; Pain in left toe(s) M79.675 ; Unspecified atherosclerosis of [place] arteries of extremities, bilateral legs I70.203 ; Acquired keratosis [keratoderma] palmaris et plantaris L85.1 and Type 2 diabetes mellitus with diabetic peripheral angiopathy without gangrene E11.[address] [place], [place] [id number] 09/03/2023 BIANCA MOISE Other hammer toe(s) (acquired), right foot M20.41 ; Tinea unguium B35.1 ; Other hammer toe(s) (acquired), left foot M20.42 ; Pain in right toe(s) M79.674 ; Pain in left toe(s) M79.675 ; Unspecified atherosclerosis of [place] band arteries of extremities, bilateral legs I70.203 ; [...] (ICD-10 - M79.675) 07/09/2023 Unspecified atherosclerosis of [place] band arteries of extremities, bilateral legs (ICD-10 - I70.203) Patient educated on risks and aggravating factors of PVD, including conservative treatment options such as a diet and exercise regimen to aid in slowing progression of vascular disease 09/03/2023 Unspecified atherosclerosis of bad [place] band arteries of extremities, bilateral legs (ICD-10 - [...] Date Coverage End Date Medicare Part B [place] [address] [place] [address] [id number] TERA CARRENO Self - patient is the insured deltamethod Life and Health Insurance ([place]) [address] [place] [address] [phone] [id number] TERA CARRENO Self - patient is the insured
--- OUTSIDE RECORDS SUMMARY | 2024-07-07 12:29 | XMS_ITS | Clinical Summary ---
Author Organization [facility] Address [facility] [place] [address] Care Team Providers Care Signal Integrity Engineer Name Role Phone Unavailable Primary Care Provider [...]
--- OUTSIDE RECORDS SUMMARY | 2024-07-07 12:29 | XMS_ITS ---
Author Organization [facility] Address [address] [place], [place] [id number] Care Team Providers Care Functional Support Analyst Name Role Phone OsmanyCHIOMA varghese Unavailable [phone] Nilesh Nuñez Unavailable Unavailable BIANCA MOISE Unavailable [phone] REASON FOR VISIT *General care Medications Medication [...] 07/09/2023 Encounters Encounter Location Date Provider Diagnosis [address] [id number] 07/09/2023 BIANCA MOISE Other hammer toe(s) (acquired), right foot M20.41 ; Tinea unguium B35.1 ; Other hammer toe(s) (acquired), left foot M20.42 ; Pain in right toe(s) M79.674 ; Pain in left toe(s) M79.675 ; Unspecified atherosclerosis of [place] arteries of extremities, bilateral legs I70.203 ; [...] (ICD-10 - M79.675) 07/09/2023 Unspecified atherosclerosis of [place] arteries of extremities, bilateral legs (ICD-10 - [...] OTC and prescription treatments. Unspecified atherosclerosis of [place] arteries of extremities, bilateral legs Patient educated [...] Notes * TERA CARRENODOB:1935 (87 yo F)Acc No.[id number]:07/09/2023 Patient: Lucero TERA FU Provider: Mary Lou MOISE :1935 A ge:87 Y S ex:Female Date:07/09/2023 Address:[address] [place] [address] Subjective: * Chief Complaints: * 1 . [...] Patient denies c hest pain, history of HI, irregular heartbeat. M usculoskeletal: Patient complains of h ammertoes, arch pain. P eripheral Vascular: Patient denies b lanching [...] M79.675 6 . U nspecified atherosclerosis of [place] arteries of extremities, bilateral legs - I70.203 [...] were emphasized. 3. U nspecified atherosclerosis of [place] arteries of extremities, bilateral legs Notes: Patient educated on risks and aggravating factors of PVD, including conservative treatment options such as a diet and exercise regimen to aid in slowing progression of vascular disease 4. A cquired keratosis [keratoderma] palmaris et [...] LESIONS, 2 TO 4, Modifiers: Q8 , 69881 DEBRIDE NAIL, 6 OR MORE, Modifiers: 59 , Q8 * Follow Up: 3 Months * Billing Information: * Visit Code: * Procedure Codes: 90915 TRIM SKIN LESIONS, 2 TO 4. Modifiers: Q8 22957 DEBRIDE NAIL, 6 OR MORE. Modifiers: 59, Q8 * Sign off status: Completed true * Provider: Mary Lou MOISE Date: 07/09/2023 Generated for Elizabeth warren/Ulises/Quoc on: 07/07/2024 12:29 PM CDT History and Physical Notes * [...]
--- OUTSIDE RECORDS SUMMARY | 2024-07-07 12:30 | XMS_ITS ---
Author Organization [facility] Address [address] [place], [place] [id number] Care Team Providers Care Fermenting Cellars Supervisor Name Role Phone OsmanyCHIOMA varghese Unavailable [phone] Nilesh Nuñez Unavailable Unavailable BIANCA MOISE Unavailable [phone] Allergies Allergen (clinical drug ingredient) Drug/Non Drug [...] 09/03/2023 Encounters Encounter Location Date Provider Diagnosis [address] [place], [place] [id number] 09/03/2023 BIANCA MOISE Other hammer toe(s) (acquired), right foot M20.41 ; Tinea unguium B35.1 ; Other hammer toe(s) (acquired), left foot M20.42 ; Pain in right toe(s) M79.674 ; Pain in left toe(s) M79.675 ; Unspecified atherosclerosis of [place] arteries of extremities, bilateral legs I70.203 ; [...] (ICD-10 - M79.675) 09/03/2023 Unspecified atherosclerosis of [place] arteries of extremities, bilateral legs (ICD-10 - [...] OTC and prescription treatments. Unspecified atherosclerosis of [place] arteries of extremities, bilateral legs Patient educated [...] Notes * TERA CARRENODOB:1935 (87 yo F)Acc No.[id number]:09/03/2023 Patient: TERA ORTIZ Provider: Mary Lou MOISE :1935 A ge:87 Y S ex:Female Date:09/03/2023 Address:[address] [place], [place] [id number] Subjective: * Chief Complaints: * 1 . [...] Patient denies c hest pain, history of VA, irregular heartbeat. M usculoskeletal: Patient complains of [...] M79.675 6 . U nspecified atherosclerosis of [place] arteries of extremities, bilateral legs - I70.203 [...] were emphasized. 3. U nspecified atherosclerosis of [place] arteries of extremities, bilateral legs Notes: Patient [...] LESIONS, 2 TO 4, Modifiers: Q8 , 74787 DEBRIDE NAIL, 6 OR MORE, Modifiers: 59 , Q8 * Follow Up: 3 Months * Billing Information: * Visit Code: * Procedure Codes: 68653 TRIM SKIN LESIONS, 2 TO 4. Modifiers: Q8 13190 DEBRIDE NAIL, 6 OR MORE. Modifiers: 59, Q8 * Sign off status: Completed true * Provider: Mary Lou MOISE Date: 0 09/03/2023 Generated for Elizabeth Elizabeth/Quoc on: 0 07/07/2024 12:29 PM CDT History and Physical [...]
[2024-07-07] MEDS: INSULIN HUMAN LISPRO (*BKC) 1,000 UNITS/10 ML VIAL SUB-Q (12:34)
[2024-07-07] MEDS: IPRATROPIUM 0.5 MG/ALBUTEROL SULFATE 2.5 MG AMPUL.NEB 3 ML INHALATION ×2 (13:26→18:00)
--- NOTE | 2024-07-07 13:31 | PC.NURSE ---
Informed WAGON DRIVER SALESPERSON patients daily meds were not in the system as of yet.
[2024-07-07] MEDS: levoFLOXacin TAB 500 MG, levoFLOXacin TAB 250 MG 750 MG PO (14:53)
[2024-07-07] MEDS: BUDESONIDE/FORMOTEROL (*SP) 160-4.5 MCG 6 GM INH 2 PUFF INHALATION (18:16)
[2024-07-07] MEDS: CLOTRIMAZOLE 10 MG TROC PO (18:17)
[2024-07-07] MEDS: ALPRAZolam (*CRX) 0.5 MG TABLET PO (20:46)
[2024-07-07] MEDS: METOPROLOL TARTRATE 50 MG TAB 100 MG PO (20:47)
[2024-07-07] MEDS: SERTRALINE HCL 25 MG TABLET PO (20:49)
[2024-07-07] MEDS: guaiFENesin 12 HR 600 MG TABCR PO (20:49)
[2024-07-07] MEDS: guaiFENesin/CODEINE 100/10 MG 5 ML SYRUP 10 ML PO (20:51)
[2024-07-07] MEDS: guaiFENesin 200 MG/10 ML UDC 100 MG PO (20:51)
[2024-07-07 21:03] LABS: Glucose Point of Care 214 mg/dl (65-105)
[2024-07-07 21:03] LABS: Glucose Point of Care 160 mg/dl (65-105)
[2024-07-08] VITALS (10 sets, daily range): BP systolic 157–163; BP diastolic 74–83; PULSE 60–78; RESP 16–20; TEMP 36.3–36.4; O2SAT 92–99
[2024-07-08] MEDS: IPRATROPIUM 0.5 MG/ALBUTEROL SULFATE 2.5 MG AMPUL.NEB 3 ML INHALATION ×4 (01:41→16:53)
[2024-07-08] MEDS: LEVOTHYROXINE SODIUM 75 MCG TABLET BY MOUTH (06:18)
[2024-07-08] MEDS: BUDESONIDE/FORMOTEROL (*SP) 160-4.5 MCG 6 GM INH 2 PUFF INHALATION ×2 (06:19→18:12)
[2024-07-08] MEDS: CLOTRIMAZOLE 10 MG TROC PO ×2 (06:22→18:13)
[2024-07-08 07:20] LABS: Glucose Point of Care 131 mg/dl (65-105)
[2024-07-08 10:57] LABS: Hematocrit 42.2 % (35.0-42.0); Hemoglobin 12.8 g/dL (11.7-13.8); Mean Corpuscular HGB Conc 30.3 g/dL (32-36); Mean Corpuscular Hemoglobin 30.3 pg (27.0-31.0); Mean Corpuscular Volume 99.8 fL (78.0-102.0); Mean Platelet Volume 9.4 fl (9.2-11.8); Platelet Count Result 363 K/mm3 (150-420); Red Blood Count 4.23 M/mm3 (4.20-5.40); Red Cell Distribution Width 13.5 % (11.6-14.4)
[2024-07-08 11:02] LABS: Alanine Aminotransferase 14 U/L (14-59); Albumin Level 2.8 g/dL (3.4-5.0); Alkaline Phosphatase 95 U/L (46-116); Anion Gap 10 mmol/L (4-12); Aspartate Amino Transferase 13 U/L (15-37); Blood Urea Nitrogen 34 mg/dL (7-18); Calcium 9.1 mg/dL (8.5-10.1); Carbon Dioxide 26 mmol/L (21-32); Chloride 104 mmol/L (98-108); Estimated CRCL calculation 28 ml/min; Estimated Glomerular Filt Rate 36; Glucose 228 mg/dL (70-99); Osmolality Calculated 304 mOsm/kg (285-295); Potassium 4.2 mmol/L (3.5-5.1); Sodium 140 mmol/L (136-145); Total Protein 6.5 g/dL (6.4-8.2)
[2024-07-08 11:03] LABS: Bilirubin,Total 0.3 mg/dL (0.00-1.00)
--- NOTE | 2024-07-08 11:08 | PC.NURSE ---
Addendum entered by Veronica Maddox RN 07/08/24 11:22: All orders written per Jaime Patel NP. Original Note: Downtime today from [id number]. Orders written CBC,CMP X1 NOW. Start Mirilax daily-first dose now. Start Melatonin 5mg @ HS for sleep during this time.
--- NOTE | 2024-07-08 11:12 | P.HP_ITS ---
H&P: HPI History of Present Illness Date/Time: 07/08/24 11:12 Chief Complaint: physical deconditioning Narrative: This is an 88-year-old female with a significant past medical history of carotid stenosis, depression, hypothyroidism, diabetes mellitus, hypertension, peripheral vascular disease, history of Smith's palsy who originally presented to [facility] for shortness of breath and dyspnea. She was diagnosed with pneumonia and treated with antibiotics x7 days. She was also given Lasix IV for CHF exacerbation. She did get an MICHELLE from over diuresis that she is still recovering from. While hospitalized she was had PT and OT work with her who recommend additional rehab time. She is now being admitted to swing bed program here at [facility]. Review of Systems Review of Systems: All systems reviewed & are unremarkable except as noted in HPI and below PMFSH Past Medical History Medical History Carotid stenosis Depression Hypothyroidism Diabetes mellitus Hypertension Peripheral vascular disease Smith's palsy Surgical History Surgical History H/O neck surgery H/O carotid endarterectomy Social History Social History Smoking status: Never smoker Second hand tobacco smoke exposure: Yes Alcohol intake: never Substance use: never Substance use type: does not use Do You Feel Safe in your Home?: Yes Lack of Transportation: No Lack of Food: Never True Current Housing: I Have Housing Concerned About Future Housing: No Difficulty Paying Gas/Electric Bills: No Difficulty Paying for Meds: No Currently Unemployed: No Education: Grade School Difficulty w/ Childcare or Family Care: No Spiritual care concerns: No Meds Home Medications and Allergies Home Medications Medication Instructions Recorded Confirmed Type alprazolam 0.5 mg tablet 0.5 mg PO HS 10/08/21 07/07/24 History amlodipine 10 mg tablet 10 mg PO DAILY 10/08/21 07/07/24 History clopidogrel 75 mg tablet 75 mg PO DAILY 10/08/21 07/07/24 History glimepiride 2 mg tablet 3 mg PO QAM 10/08/21 07/07/24 History losartan 100 mg tablet 100 mg PO DAILY 10/08/21 07/07/24 History metoprolol tartrate 100 mg tablet 100 mg PO BID 10/08/21 07/07/24 History timolol maleate 0.5 % eye drops 1 drp EACH EYE QAM 10/08/21 07/07/24 History ergocalciferol (vitamin D2) 1,250 1,250 mcg PO WEEKLY 05/13/22 07/07/24 History mcg (50,000 unit) capsule levothyroxine 75 mcg tablet See Rx Instructions .Route .COMPLEX 05/13/22 07/07/24 History albuterol sulfate 90 mcg/actuation 2 puff inhalation Q6H PRN 05/14/22 07/07/24 Rx aerosol inhaler Shortness Of Breath Or Wheezing 30 days #6.7 grams nebulizers #1 ea 05/14/22 07/07/24 Rx clotrimazole 10 mg kirti 10 mg PO BID 05/25/22 07/07/24 History budesonide-formoterol HFA 160 2 puff inhalation BID 08/17/23 07/07/24 History mcg-4.5 mcg/actuation aerosol inhaler Womens daily vitamins 07/02/24 07/07/24 History atorvastatin 10 mg tablet 10 mg PO EVERY OTHER DAY 07/02/24 07/07/24 History cholesterol loratadine 10 mg tablet (Claritin) 10 mg PO DAILY 07/02/24 07/07/24 History mecobalamin (vitamin B12) 1,000 1,000 mcg PO DAILY 07/02/24 07/07/24 History mcg chewable tablet (B12 Active) resveratrol 100 mg capsule 100 mg PO DAILY@0800 07/02/24 07/07/24 History benzocaine 6 mg-menthol 10 mg 1 maci PO PRN PRN cough #1 ea 07/07/24 07/07/24 Rx lozenges (Chloraseptic Sore Throat) fluticasone propionate 50 2 spray intranasal QAM #1 07/07/24 07/07/24 Rx mcg/actuation nasal applicator spray,suspension guaifenesin 100 mg/5 mL oral liquid 100 mg (5 mL) PO HS #250 mL 07/07/24 07/07/24 Rx guaifenesin 600 mg tablet, 600 mg PO Q12HR secretions #1 07/07/24 07/07/24 Rx extended release 12 hr (Mucus tablet Relief ER) ipratropium 0.5 mg-albuterol 3 mg 3 ml inhalation Q6HRT PRN 07/07/24 07/07/24 History (2.5 mg base)/3 mL nebulization shortness of breath soln levofloxacin 750 mg tablet 750 mg PO Q48H URI #2 tabs 07/07/24 07/07/24 Rx prednisone 20 mg tablet 40 mg (2 x 20 mg) PO DAILY@0800 #1 07/07/24 07/07/24 Rx tablet sertraline 50 mg tablet (Zoloft) 25 mg (1/2 x 50 mg) PO QHS #1 07/07/24 07/07/24 Rx tablet Allergies Allergy/AdvReac Type Severity Reaction Status Date / Time aspirin Allergy Mild Dizziness Verified 07/02/24 13:28 amoxicillin (From Augmentin) Allergy Anaphylaxis Verified 07/05/24 13:18 clavulanic acid (From Allergy Anaphylaxis Verified 07/05/24 13:18 Augmentin) Vital Signs Vital Signs - 24 hr 07/07/24 11:31 07/07/24 11:31 07/07/24 11:52 Temperature 97.6 F Pulse Rate 74 74 74 Respiratory Rate 18 18 18 Blood Pressure 125/58 L Pulse Oximetry 93 94 94 Oxygen Delivery Nasal Cannula Nasal Cannula Nasal Cannula Oxygen Flow Rate 1 1 1 07/07/24 13:20 07/07/24 13:28 07/07/24 16:00 Temperature 97.5 F L Pulse Rate 70 72 71 Respiratory Rate 16 16 18 Blood Pressure 158/76 H Pulse Oximetry 96 98 92 Oxygen Delivery Nasal Cannula Oxygen Flow Rate 1 07/07/24 18:02 07/07/24 18:21 07/07/24 20:00 Temperature Pulse Rate 72 78 75 Respiratory Rate 18 16 16 Blood Pressure Pulse Oximetry 92 96 94 Oxygen Delivery Nasal Cannula Oxygen Flow Rate 1 1 1 07/07/24 20:47 07/08/24 00:00 07/08/24 01:30 Temperature 97.4 F L Pulse Rate 75 75 62 Respiratory Rate 18 18 Blood Pressure 157/74 H Pulse Oximetry 93 95 Oxygen Delivery Nasal Cannula Oxygen Flow Rate 1 1 07/08/24 01:53 07/08/24 06:43 Temperature Pulse Rate 60 68 Respiratory Rate 20 18 Blood Pressure Pulse Oximetry 99 94 Oxygen Delivery Nasal Cannula Oxygen Flow Rate 1 1 Exam Narrative: General: In no acute distress, well nourished Head: atraumatic, no encephalopathy Eyes: PERRLA, sclera clear ENT: moist mucous membranes, nasal passages clear Neck: supple, no JVD, no adenopathy, trachea midline Cardiac: Normal S1 and S2. RRR, No murmur, gallops or friction rubs, peripheral pulses intact. Respiratory: Mild wheezing and rhonchi noted and right upper lobe and left upper lobe, crackles noted and right lower lobe, no other adventitious lung sounds, currently on 1 L nasal cannula Gastrointestinal: soft, non-distended, non-tender, normoactive bowel sounds. : voiding without difficulty. Extremities: moves all extremities well, bilateral lower extremity edema Skin: clean, dry, intact. No wounds or lesions. Neuro: Alert and oriented x4, cranial nerves intact, no neuro deficits. Psych: normal mood, normal affect, interactive H&P: Results Labs Labs: Short CBC 07/08/24 Range/Units 09:35 WBC 10.0 (4.8-10.8) K/mm3 Hgb 12.8 (11.7-13.8) g/dL Hct 42.2 H (35.0-42.0) % Plt Count 363 (150-420) K/mm3 BMP 07/08/24 09:35 Sodium 140 Potassium 4.2 Chloride 104 Carbon Dioxide 26 BUN 34 H Creatinine 1.38 H Glucose 228 H Calcium 9.1 Liver Function 07/08/24 Range/Units 09:35 Total Bilirubin 0.3 (0.00-1.00) mg/dL AST 13 L (15-37) U/L ALT 14 (14-59) U/L Alkaline Phosphatase 95 (46-116) U/L Albumin 2.8 L (3.4-5.0) g/dL Assessment and Plan Assessment and plan (1) Physical deconditioning: Code(s): R53.81 - Other malaise Status: Acute Assessment and Plan: * PT and OT ordered * Continue fall precautions (2) Community acquired pneumonia: Code(s): J18.9 - Pneumonia, unspecified organism Status: Acute Assessment and Plan: * Currently on Levaquin * Continue to wean O2 for sat greater than 92% * Continue breathing treatments q.6 hours * Taper prednisone * Robitussin with codeine for at bedtime * Continue Mucinex * Continue pep therapy and incentive spirometry * May need a home O2 eval before discharge * She will also need pulmonology follow-up at discharge for PFTs (3) Diabetes mellitus: Code(s): E11.9 - Type 2 diabetes mellitus without complications Status: Acute Assessment and Plan: * Blood sugars ranging 131-228 * Hgb A1C 6.3 on 07/03/2024 * Accu checks AC/HS * High-dose SSI ordered * Continue glimepiride * hypoglycemic protocol in place * Diabetic diet ordered (4) CHF (congestive heart failure): Qualifiers: Heart failure chronicity: unspecified Heart failure type: unspecified Qualified Code(s): I50.9 - Heart failure, unspecified Code(s): I50.9 - Heart failure, unspecified Status: Acute Assessment and Plan: * Echocardiogram from 07/05/2024 reviewed which showed normal LV systolic function with an estimated EF of 60-65%, grade 1 diastolic dysfunction, moderate pulmonary hypertension with an estimated pulmonary arterial systolic pressure 51 mmHg, moderate aortic valve sclerosis * Continue Lasix 40 mg daily (5) Hypertension: Code(s): I10 - Essential (primary) hypertension Status: Acute Assessment and Plan: * Blood pressure ranging 125/58 to 157/74 * Continue losartan (6) Hypothyroidism: Code(s): E03.9 - Hypothyroidism, unspecified Status: Acute Assessment and Plan: * Continue Synthroid (7) Depression: Code(s): F32.A - Depression, unspecified Status: Acute Assessment and Plan: * Continue Zoloft (8) Chronic kidney disease: Code(s): N18.9 - Chronic kidney disease, unspecified Status: Acute Assessment and Plan: * Creatinine 1.38 * Baseline creatinine ranging 1.11 to 1.43 * Currently at baseline Hospitalist MIPS Advance Care Plan I have confirmed that the patient's Advanced Care Plan is present, code status is documented, or surrogate decision maker is listed in patient medical record.: Yes Medication Reconciliation I have utilized all available resources to obtain, update and review the patients current medications (includes all prescriptions, OTC, herbals, cannabis, and nutritional supplements).: Yes
[2024-07-08 11:44] LABS: Glucose Point of Care 209 mg/dl (65-105)
[2024-07-08] MEDS: INSULIN HUMAN LISPRO (*BKC) 1,000 UNITS/10 ML VIAL SUB-Q (11:55)
[2024-07-08] MEDS: FUROSEMIDE 40 MG TABLET PO (12:19)
[2024-07-08 16:25] LABS: Glucose Point of Care 161 mg/dl (65-105)
--- NOTE | 2024-07-08 17:16 | PC.NURSE ---
Patient had all scheduled AM medication, but computer system was down and everything was documented on paper.
[2024-07-08] MEDS: MELATONIN 5 MG TABLET PO (20:53)
[2024-07-08] MEDS: METOPROLOL TARTRATE 50 MG TAB 100 MG PO (20:53)
[2024-07-08] MEDS: SERTRALINE HCL 25 MG TABLET PO (20:54)
[2024-07-08] MEDS: guaiFENesin/CODEINE 100/10 MG 5 ML SYRUP 10 ML PO (20:54)
[2024-07-08] MEDS: ALPRAZolam (*CRX) 0.5 MG TABLET PO (20:54)
[2024-07-08] MEDS: guaiFENesin 12 HR 600 MG TABCR PO (20:54)
[2024-07-08] MEDS: guaiFENesin 200 MG/10 ML UDC 100 MG PO (20:54)
[2024-07-08 21:10] LABS: Glucose Point of Care 228 mg/dl (65-105)
[2024-07-09] VITALS (11 sets, daily range): BP systolic 129–142; BP diastolic 52–76; PULSE 56–78; RESP 15–18; TEMP 36–36.4; O2SAT 82–97
[2024-07-09] MEDS: IPRATROPIUM 0.5 MG/ALBUTEROL SULFATE 2.5 MG AMPUL.NEB 3 ML INHALATION ×4 (00:43→18:22)
[2024-07-09] MEDS: LEVOTHYROXINE SODIUM 75 MCG TABLET BY MOUTH (06:35)
[2024-07-09] MEDS: CLOTRIMAZOLE 10 MG TROC PO ×2 (06:36→18:24)
[2024-07-09] MEDS: BUDESONIDE/FORMOTEROL (*SP) 160-4.5 MCG 6 GM INH 2 PUFF INHALATION ×2 (06:36→18:22)
[2024-07-09] MEDS: predniSONE 20 MG, predniSONE 10 MG 30 MG PO (08:00)
[2024-07-09 08:04] LABS: Glucose Point of Care 115 mg/dl (65-105)
[2024-07-09] MEDS: LOSARTAN POTASSIUM 50 MG TABLET 100 MG PO (09:00)
[2024-07-09] MEDS: polyethylene glycoL 3350 17 GM POWD.PACK PO (09:04)
[2024-07-09] MEDS: amLODIPine BESYLATE 5 MG TABLET 10 MG PO (09:05)
[2024-07-09] MEDS: FUROSEMIDE 40 MG TABLET PO (09:05)
[2024-07-09] MEDS: guaiFENesin 12 HR 600 MG TABCR PO ×2 (09:05→21:19)
[2024-07-09] MEDS: METOPROLOL TARTRATE 50 MG TAB 100 MG PO (09:05)
[2024-07-09] MEDS: LORATADINE 10 MG TABLET PO (09:06)
[2024-07-09] MEDS: levoFLOXacin TAB 500 MG, levoFLOXacin TAB 250 MG 750 MG PO (09:06)
[2024-07-09] MEDS: CLOPIDOGREL BISULFATE 75 MG TABLET PO (09:07)
[2024-07-09] MEDS: ATORVASTATIN 10 MG TABLET PO (09:07)
[2024-07-09] MEDS: GLIMEPIRIDE 1 MG TABLET 3 MG PO (09:07)
[2024-07-09] MEDS: TIMOLOL MALEATE 0.5% OP SOLN 5 ML BOTTLE 1 DROP EACH EYE (09:08)
[2024-07-09] MEDS: FLUTICASONE PROPIONATE 0.05% NA SPR 16 GM BTL (*BKC) 2 SPRAY NASAL (09:08)
--- NOTE | 2024-07-09 10:50 | PC.NURSE ---
Patient walked to bathroom on room air, desat to 82%, able to recover to 92% with rest within 2 minutes. Patient walked back to chair, desat to 80-82 on room air, recovered again in 2 minutes to 92 on room air, with 02 @ 1 liter 02 sat 97%.
[2024-07-09 12:02] LABS: Glucose Point of Care 195 mg/dl (65-105)
[2024-07-09 16:42] LABS: Glucose Point of Care 195 mg/dl (65-105)
[2024-07-09] MEDS: MELATONIN 5 MG TABLET PO (21:19)
[2024-07-09] MEDS: SERTRALINE HCL 25 MG TABLET PO (21:19)
[2024-07-09] MEDS: ALPRAZolam (*CRX) 0.5 MG TABLET PO (21:19)
[2024-07-09] MEDS: guaiFENesin 200 MG/10 ML UDC 100 MG PO (21:21)
[2024-07-09] MEDS: guaiFENesin/CODEINE 100/10 MG 5 ML SYRUP 10 ML PO (21:22)
[2024-07-09 22:00] LABS: Glucose Point of Care 171 mg/dl (65-105)
--- NOTE | 2024-07-09 22:23 | PC.NURSE ---
Patient sat up in chair until 2100. Assisted to bathroom and then back to chair to change for bed. HS care given then patient was assisted to bed. O2 on at 1 LPM/NC.
[2024-07-10] VITALS (10 sets, daily range): BP systolic 124–158; BP diastolic 59–65; PULSE 72–95; RESP 18–20; TEMP 36.1–36.3; O2SAT 93–100
[2024-07-10] MEDS: IPRATROPIUM 0.5 MG/ALBUTEROL SULFATE 2.5 MG AMPUL.NEB 3 ML INHALATION ×4 (00:45→17:54)
--- NOTE | 2024-07-10 00:50 | PC.NURSE ---
Pt up to the bathroom with the walker and standby assist of one. Pt voided and was picked up by radiology for a chest X-ray which was ordered. Upon returning to the room, pt was given her nebulizer treatment as ordered.
--- NOTE | 2024-07-10 00:50 | PC.NURSE ---
Pt taking her nebulizer treatment which she tolerated well.
--- NOTE | 2024-07-10 02:05 | PC.NURSE ---
Pt asleep and respirations are even and unlabored.
--- NOTE | 2024-07-10 03:15 | PC.NURSE ---
Pt up to the bathroom with the walker and assist of one. Pt back to bed with the walker and assist of one.
[2024-07-10] MEDS: LEVOTHYROXINE SODIUM 75 MCG TABLET BY MOUTH (06:15)
--- NOTE | 2024-07-10 06:20 | PC.NURSE ---
Pt up to the bathroom with the walker and assist of one. Pt voided and returned to bed with the walker and assist of one. Pt was given Synthroid 75 MCG PO as ordered.
[2024-07-10] MEDS: BUDESONIDE/FORMOTEROL (*SP) 160-4.5 MCG 6 GM INH 2 PUFF INHALATION ×2 (06:41→17:54)
--- NOTE | 2024-07-10 06:45 | PC.NURSE ---
Pt given a duoneb treatment as orderd. Pt also given her Symbicort inhaler and Mycelex kirti PO as ordered.
[2024-07-10] MEDS: CLOTRIMAZOLE 10 MG TROC PO ×2 (06:46→17:54)
[2024-07-10 07:45] LABS: Basophils Absolute Auto 0.03 K/mm3 (0.00-0.10); Basophils Percent Auto 0.2 % (0.0-1.0); Eosinophils Absolute Auto 0.09 K/mm3 (0.02-0.50); Eosinophils Percent Auto 0.7 % (1.0-6.0); Hematocrit 43.9 % (35.0-42.0); Hemoglobin 13.7 g/dL (11.7-13.8); Immature Granulocyte Absolute 0.15 K/mm3 (0.00-0.00); Immature Granulocyte Percent A 1.2 % (0.0-0.0); Lymphocytes Absolute Auto 3.13 K/mm3 (1.10-4.50); Lymphocytes Percent Auto 24.4 % (18.0-42.0); Mean Corpuscular HGB Conc 31.2 g/dL (32-36); Mean Corpuscular Hemoglobin 30.8 pg (27.0-31.0); Mean Corpuscular Volume 98.7 fL (78.0-102.0); Mean Platelet Volume 9.5 fl (9.2-11.8); Monocytes Absolute Auto 0.92 K/mm3 (0.10-0.90); Monocytes Percent Auto 7.2 % (2.0-11.0); Neutrophils Absolute Auto 8.52 K/mm3 (1.70-7.20); Neutrophils Percent Auto 66.3 % (50.0-70.0); Platelet Count Result 392 K/mm3 (150-420); Red Blood Count 4.45 M/mm3 (4.20-5.40); Red Cell Distribution Width 13.2 % (11.6-14.4); White Blood Count 12.8 K/mm3 (4.8-10.8)
[2024-07-10 08:02] LABS: Glucose Point of Care 125 mg/dl (65-105)
[2024-07-10 08:03] LABS: Albumin Level 3.1 g/dL (3.4-5.0); Anion Gap 5 mmol/L (4-12); Blood Urea Nitrogen 28 mg/dL (7-18); Carbon Dioxide 32 mmol/L (21-32); Chloride 102 mmol/L (98-108); Estimated CRCL calculation 32 ml/min; Estimated Glomerular Filt Rate 41; Glucose 110 mg/dL (70-99); Magnesium 1.8 mg/dL (1.8-2.4); NT Pro B Type Natriuretic Pept 680 pg/mL (0-450); Osmolality Calculated 294 mOsm/kg (285-295); Phosphorus 2.8 mg/dL (2.6-4.7); Potassium 3.7 mmol/L (3.5-5.1); Sodium 139 mmol/L (136-145)
[2024-07-10] MEDS: polyethylene glycoL 3350 17 GM POWD.PACK PO (09:10)
[2024-07-10] MEDS: METOPROLOL TARTRATE 50 MG TAB 100 MG PO ×2 (09:11→21:10)
[2024-07-10] MEDS: LOSARTAN POTASSIUM 50 MG TABLET 100 MG PO (09:11)
[2024-07-10] MEDS: guaiFENesin 12 HR 600 MG TABCR PO ×2 (09:11→21:11)
[2024-07-10] MEDS: FUROSEMIDE 40 MG TABLET PO (09:12)
[2024-07-10] MEDS: predniSONE 20 MG, predniSONE 10 MG 30 MG PO (09:12)
[2024-07-10] MEDS: GLIMEPIRIDE 1 MG TABLET 3 MG PO (09:12)
[2024-07-10] MEDS: FLUTICASONE PROPIONATE 0.05% NA SPR 16 GM BTL (*BKC) 2 SPRAY NASAL (09:13)
[2024-07-10] MEDS: TIMOLOL MALEATE 0.5% OP SOLN 5 ML BOTTLE 1 DROP EACH EYE (09:13)
[2024-07-10] MEDS: LORATADINE 10 MG TABLET PO (09:13)
[2024-07-10] MEDS: CLOPIDOGREL BISULFATE 75 MG TABLET PO (09:13)
[2024-07-10] MEDS: amLODIPine BESYLATE 5 MG TABLET 10 MG PO (09:13)
[2024-07-10] MEDS: ALPRAZolam (*CRX) 0.5 MG TABLET PO ×2 (09:37→21:12)
[2024-07-10 11:59] LABS: Glucose Point of Care 166 mg/dl (65-105)
[2024-07-10] MEDS: BISACODYL 5 MG TABLET EC PO (13:04)
[2024-07-10] MEDS: BISACODYL 10 MG SUPPOSITORY RECTAL (17:54)
[2024-07-10] MEDS: guaiFENesin/CODEINE 100/10 MG 5 ML SYRUP 10 ML PO (21:10)
[2024-07-10] MEDS: guaiFENesin 200 MG/10 ML UDC 100 MG PO (21:10)
[2024-07-10] MEDS: SERTRALINE HCL 25 MG TABLET PO (21:11)
[2024-07-10] MEDS: MELATONIN 5 MG TABLET PO (21:11)
[2024-07-10 21:14] LABS: Glucose Point of Care 188 mg/dl (65-105)
[2024-07-10 21:14] LABS: Glucose Point of Care 195 mg/dl (65-105)
[2024-07-11] VITALS (17 sets, daily range): BP systolic 112–127; BP diastolic 58–72; PULSE 64–101; RESP 16–18; TEMP 36.1–36.3; O2SAT 95–100
[2024-07-11] MEDS: IPRATROPIUM 0.5 MG/ALBUTEROL SULFATE 2.5 MG AMPUL.NEB 3 ML INHALATION ×5 (00:39→23:32)
[2024-07-11] MEDS: BUDESONIDE/FORMOTEROL (*SP) 160-4.5 MCG 6 GM INH 2 PUFF INHALATION ×2 (05:41→18:34)
[2024-07-11] MEDS: LEVOTHYROXINE SODIUM 75 MCG TABLET BY MOUTH (05:41)
[2024-07-11] MEDS: CLOTRIMAZOLE 10 MG TROC PO ×2 (06:04→18:35)
[2024-07-11 07:38] LABS: Glucose Point of Care 88 mg/dl (65-105)
[2024-07-11] MEDS: polyethylene glycoL 3350 17 GM POWD.PACK PO (08:08)
[2024-07-11] MEDS: TIMOLOL MALEATE 0.5% OP SOLN 5 ML BOTTLE 1 DROP EACH EYE (08:09)
[2024-07-11] MEDS: LOSARTAN POTASSIUM 50 MG TABLET 100 MG PO (08:10)
[2024-07-11] MEDS: FLUTICASONE PROPIONATE 0.05% NA SPR 16 GM BTL (*BKC) 2 SPRAY NASAL (08:10)
[2024-07-11] MEDS: METOPROLOL TARTRATE 50 MG TAB 100 MG PO ×2 (08:11→21:16)
[2024-07-11] MEDS: CLOPIDOGREL BISULFATE 75 MG TABLET PO (08:11)
[2024-07-11] MEDS: levoFLOXacin TAB 500 MG, levoFLOXacin TAB 250 MG 750 MG PO (08:11)
[2024-07-11] MEDS: predniSONE 20 MG, predniSONE 10 MG 30 MG PO (08:12)
[2024-07-11] MEDS: amLODIPine BESYLATE 5 MG TABLET 10 MG PO (08:13)
[2024-07-11] MEDS: GLIMEPIRIDE 1 MG TABLET 3 MG PO (08:13)
[2024-07-11] MEDS: LORATADINE 10 MG TABLET PO (08:14)
[2024-07-11] MEDS: FUROSEMIDE 40 MG TABLET PO (08:14)
[2024-07-11] MEDS: ATORVASTATIN 10 MG TABLET PO (08:14)
[2024-07-11] MEDS: guaiFENesin 12 HR 600 MG TABCR PO ×2 (08:15→21:16)
[2024-07-11] MEDS: ERGOCALCIFEROL 50,000 UNITS CAPSULE 50000 UNITS PO (08:23)
--- NOTE | 2024-07-11 08:54 | P.PNIM_ITS ---
Progress Note: A&P Assessment and Plan (1) Physical deconditioning: Code(s): R53.81 - Other malaise Status: Acute Assessment and Plan: * PT and OT ordered * Continue fall precautions (2) Community acquired pneumonia: Code(s): J18.9 - Pneumonia, unspecified organism Status: Acute Assessment and Plan: * Currently on Levaquin * Continue to wean O2 for sat greater than 92% * Continue breathing treatments q.6 hours * Taper prednisone * Robitussin with codeine for at bedtime * Continue Mucinex * Continue pep therapy and incentive spirometry * May need a home O2 eval before discharge * She will also need pulmonology follow-up at discharge for PFTs (3) Diabetes mellitus: Code(s): E11.9 - Type 2 diabetes mellitus without complications Status: Acute Assessment and Plan: * Blood sugars ranging 131-228 * Hgb A1C 6.3 on 07/03/2024 * Accu checks AC/HS * High-dose SSI ordered * Continue glimepiride * hypoglycemic protocol in place * Diabetic diet ordered (4) CHF (congestive heart failure): Qualifiers: Heart failure chronicity: unspecified Heart failure type: unspecified Qualified Code(s): I50.9 - Heart failure, unspecified Code(s): I50.9 - Heart failure, unspecified Status: Acute Assessment and Plan: * Echocardiogram from 07/05/2024 reviewed which showed normal LV systolic function with an estimated EF of 60-65%, grade 1 diastolic dysfunction, moderate pulmonary hypertension with an estimated pulmonary arterial systolic pressure 51 mmHg, moderate aortic valve sclerosis * Continue Lasix 40 mg daily (5) Hypertension: Code(s): I10 - Essential (primary) hypertension Status: Acute Assessment and Plan: * Blood pressure ranging 125/58 to 157/74 * Continue losartan (6) Hypothyroidism: Code(s): E03.9 - Hypothyroidism, unspecified Status: Acute Assessment and Plan: * Continue Synthroid (7) Depression: Code(s): F32.A - Depression, unspecified Status: Acute Assessment and Plan: * Continue Zoloft (8) Chronic kidney disease: Code(s): N18.9 - Chronic kidney disease, unspecified Status: Acute Assessment and Plan: * Creatinine 1.38 * Baseline creatinine ranging 1.11 to 1.43 * Currently at baseline Subjective Date/time seen: 07/11/24 08:54 Interval history: Patient is feeling better her bowels finally moved and now her hemmorids are bleeding she is requesting some cream/suppository. Order will be placed her oxygen has been decreased and her saturation is 93% sitting here and she is hopeful to get off of the oxygen prior to discharge. Exam Narrative: General: In no acute distress, well nourished Head: atraumatic, no encephalopathy Eyes: PERRLA, sclera clear ENT: moist mucous membranes, nasal passages clear Neck: supple, no JVD, no adenopathy, trachea midline Cardiac: Normal S1 and S2. RRR, No murmur, gallops or friction rubs, peripheral pulses intact. Respiratory: Mild wheezing and rhonchi noted and right upper lobe and left upper lobe, crackles noted and right lower lobe, no other adventitious lung sounds, currently on 1 L nasal cannula Gastrointestinal: soft, non-distended, non-tender, normoactive bowel sounds. : voiding without difficulty. Extremities: moves all extremities well, bilateral lower extremity edema Skin: clean, dry, intact. No wounds or lesions. Neuro: Alert and oriented x4, cranial nerves intact, no neuro deficits. Psych: normal mood, normal affect, interactive Objective Data Vital Signs Vital Signs: Vital Signs - 24 hr 07/10/24 09:11 07/10/24 16:30 07/10/24 21:10 Temperature 97 F L Pulse Rate 78 90 74 Respiratory Rate 18 Blood Pressure 124/63 Pulse Oximetry 97 Oxygen Delivery Nasal Cannula Oxygen Flow Rate 1 07/11/24 00:00 07/11/24 00:38 07/11/24 00:59 Temperature 97.1 F L Pulse Rate 90 80 78 Respiratory Rate 18 16 16 Blood Pressure 115/72 Pulse Oximetry 96 95 98 Oxygen Delivery Nasal Cannula Oxygen Flow Rate 1 1 07/11/24 05:44 07/11/24 05:56 07/11/24 08:00 Temperature Pulse Rate 86 87 64 Respiratory Rate 16 16 16 Blood Pressure Pulse Oximetry 96 100 97 Oxygen Delivery Nasal Cannula Oxygen Flow Rate 1 1 1 07/11/24 08:00 07/11/24 08:11 Temperature 96.9 F L Pulse Rate 64 64 Respiratory Rate 16 Blood Pressure 127/59 L Pulse Oximetry 97 Oxygen Delivery Nasal Cannula Oxygen Flow Rate 1 Intake/Output Intake/Output: Intake & Output 07/08/24 07/09/24 07/10/24 07/11/24 23:59 23:59 23:59 23:59 Intake Total 1195 0 1375 850 Output Total 2425 Balance -1230 1909 1375 850 Meds/Results Medications: Active Medications Generic Name Dose Route Start Last Admin Trade Name Freq PRN Reason Stop Dose Admin Albuterol/Ipratropium 3 ml 07/07/24 12:30 07/11/24 05:43 Ipratropium 0.5 Mg/Albuterol Sulfate 2.5 Mg Ampul.Neb 3 Ml INHALATION 3 ml Q6HRT VANESSA Administration Alprazolam 0.5 mg 07/09/24 21:00 07/10/24 09:37 Alprazolam (*Crx) 0.5 Mg Tablet PO 0.5 mg HS VANESSA Administration Alprazolam 0.5 mg 07/10/24 20:24 07/10/24 21:12 Alprazolam (*Crx) 0.5 Mg Tablet PO 0.5 mg DAILY PRN Administration Anxiety Amlodipine Besylate 10 mg 07/08/24 09:00 07/11/24 08:13 Amlodipine Besylate 5 Mg Tablet PO 10 mg DAILY VANESSA Administration Atorvastatin Calcium 10 mg 07/09/24 09:00 07/11/24 08:14 Atorvastatin 10 Mg Tablet PO 10 mg Q48HR VANESSA Administration Benzocaine 1 lozenge 07/07/24 13:41 Benzocaine/Menthol (*Bkc) Lozenge PO PRN PRN cough Bisacodyl 5 mg 07/10/24 11:56 07/10/24 13:04 Bisacodyl 5 Mg Tablet Ec PO 5 mg DAILY PRN Administration Constipation Budesonide/Formoterol Fumarate 2 puff 07/07/24 18:30 07/11/24 05:41 Budesonide/Formoterol (*Sp) 160-4.5 Mcg 6 Gm Inh INHALATION 2 puff Q12HRT VANESSA Administration Clopidogrel Bisulfate 75 mg 07/08/24 09:00 07/11/24 08:11 Clopidogrel Bisulfate 75 Mg Tablet PO 75 mg DAILY VANESSA Administration Clotrimazole 10 mg 07/07/24 19:00 07/11/24 06:04 Clotrimazole 10 Mg Troc PO 10 mg Q12H VANESSA Administration Dextrose 12.5 gm 07/07/24 11:57 Dextrose 50% 25 Gm/50 Ml Syringe IV PUSH PRN PRN Hypoglycemia Protocol Ergocalciferol 50,000 units 07/11/24 09:00 07/11/24 08:23 Ergocalciferol 50,000 Units Capsule PO 50,000 units WEEKLY VANESSA Administration Fluticasone Propionate 2 spray 07/08/24 09:00 07/11/24 08:10 Fluticasone Propionate 0.05% Na Spr 16 Gm Btl (*Bkc) NASAL 2 spray QAM VANESSA Administration Furosemide 40 mg 07/08/24 11:30 07/11/24 08:14 Furosemide 40 Mg Tablet PO 40 mg DAILY VANESSA Administration Glimepiride 3 mg 07/08/24 09:00 07/11/24 08:13 Glimepiride 1 Mg Tablet PO 3 mg QAM VANESSA Administration Glucagon 1 mg 07/07/24 11:57 Glucagon For Inj 1 Mg Vial IM PRN PRN Hypoglycemia Protocol Glucose 15 gm 07/07/24 11:57 Glucose Oral Gel 15 Gm Of Glucse In 37.5 Gm Tube PO PRN PRN Hypoglycemia Protocol Guaifenesin 600 mg 07/07/24 21:00 07/11/24 08:15 Guaifenesin 12 Hr 600 Mg Tabcr PO 600 mg Q12HR VANESSA Administration Guaifenesin 100 mg 07/07/24 21:00 07/10/24 21:10 Guaifenesin 200 Mg/10 Ml Udc PO 100 mg HS VANESSA Administration Guaifenesin 10 ml 07/07/24 21:00 07/10/24 21:10 Guaifenesin/Codeine 100/10 Mg 5 Ml Syrup PO 10 ml HS VANESSA Administration Dextrose 1,000 mls @ 100 mls/hr 07/07/24 11:57 Dextrose 5% 1,000 Ml IVPB PRN PRN Hypoglycemia Protocol Insulin Human Lispro 4 - 8 units 07/07/24 12:00 07/11/24 08:07 Insulin Human Lispro (*Bkc) 1,000 Units/10 Ml Vial SUB-Q Not Given TIDWM VANESSA Protocol Levofloxacin 500 mg/ 750 mg 07/07/24 15:00 07/11/24 08:11 Levofloxacin 250 mg PO 750 mg Q48HR VANESSA Administration Levothyroxine Sodium 75 mcg 07/08/24 06:30 07/11/24 05:41 Levothyroxine Sodium 75 Mcg Tablet BY MOUTH 75 mcg DAILY@0630 VANESSA Administration Loratadine 10 mg 07/08/24 09:00 07/11/24 08:14 Loratadine 10 Mg Tablet PO 10 mg DAILY VANESSA Administration Losartan Potassium 100 mg 07/09/24 09:00 07/11/24 08:10 Losartan Potassium 50 Mg Tablet PO 100 mg DAILY VANESSA Administration Melatonin 5 mg 07/08/24 21:00 07/10/24 21:11 Melatonin 5 Mg Tablet PO 5 mg HS VANESSA Administration Metoprolol Tartrate 100 mg 07/07/24 21:00 07/11/24 08:11 Metoprolol Tartrate 50 Mg Tab PO 100 mg Q12HR VANESSA Administration Phenyleph/Shark Oil/[place] Butter 1 supp 07/11/24 08:53 Phenylephrine Hcl/[place] Butter Supp.Rect (*Bkc) RECTAL Q12HR PRN Hemorrhoids Polyethylene Glycol 17 gm 07/09/24 09:00 07/11/24 08:08 Polyethylene Glycol 3350 17 Gm Powd.Pack PO 17 gm QAM VANESSA Administration Prednisone 20 mg/ Prednisone 30 mg 07/08/24 08:00 07/11/24 08:12 10 mg PO 30 mg DAILY@0800 VANESSA Administration Sertraline HCl 25 mg 07/07/24 21:00 07/10/24 21:11 Sertraline Hcl 25 Mg Tablet PO 25 mg QHS VANESSA Administration Timolol Maleate 1 drop 07/08/24 09:00 07/11/24 08:09 Timolol Maleate 0.5% Op Soln 5 Ml Bottle EACH EYE 1 drop QAM VANESSA Administration Radiology Results: ITS Impressions Chest X-Ray 07/10/24 07:24 IMPRESSION: Highly suggestive bilateral pneumonia. Underlying fibrotic changes. Labs Labs: Laboratory Results - last 24 hr 07/10/24 07/10/24 07/10/24 11:53 16:52 21:09 POC Capillary Glucose 166 H 188 H 195 H 07/11/24 07:32 POC Capillary Glucose 88
[2024-07-11 11:34] LABS: Glucose Point of Care 219 mg/dl (65-105)
[2024-07-11] MEDS: INSULIN HUMAN LISPRO (*BKC) 1,000 UNITS/10 ML VIAL SUB-Q (11:44)
[2024-07-11 20:22] LABS: Glucose Point of Care 211 mg/dl (65-105)
[2024-07-11 20:22] LABS: Glucose Point of Care 106 mg/dl (65-105)
[2024-07-11] MEDS: guaiFENesin 200 MG/10 ML UDC 100 MG PO (21:15)
[2024-07-11] MEDS: guaiFENesin/CODEINE 100/10 MG 5 ML SYRUP 10 ML PO (21:15)
[2024-07-11] MEDS: MELATONIN 5 MG TABLET PO (21:16)
[2024-07-11] MEDS: SERTRALINE HCL 25 MG TABLET PO (21:16)
[2024-07-11] MEDS: ALPRAZolam (*CRX) 0.5 MG TABLET PO (21:16)
[2024-07-11] MEDS: PHENYLEPH/SHARK OIL/MO/PETROL CREAM 26 GM 1 APPLIC RECTAL (23:32)
[2024-07-12] VITALS (13 sets, daily range): BP systolic 102–120; BP diastolic 62–65; PULSE 70–97; RESP 16–20; TEMP 36.2–36.3; O2SAT 89–100
[2024-07-12] MEDS: LEVOTHYROXINE SODIUM 75 MCG TABLET BY MOUTH (05:03)
[2024-07-12] MEDS: BUDESONIDE/FORMOTEROL (*SP) 160-4.5 MCG 6 GM INH 2 PUFF INHALATION ×2 (05:03→17:56)
[2024-07-12] MEDS: CLOTRIMAZOLE 10 MG TROC PO ×2 (05:07→17:56)
[2024-07-12] MEDS: IPRATROPIUM 0.5 MG/ALBUTEROL SULFATE 2.5 MG AMPUL.NEB 3 ML INHALATION ×3 (05:28→16:59)
[2024-07-12 07:55] LABS: Glucose Point of Care 78 mg/dl (65-105)
[2024-07-12] MEDS: polyethylene glycoL 3350 17 GM POWD.PACK PO (08:44)
[2024-07-12] MEDS: GLIMEPIRIDE 1 MG TABLET 3 MG PO (08:45)
[2024-07-12] MEDS: METOPROLOL TARTRATE 50 MG TAB 100 MG PO ×2 (08:46→21:26)
[2024-07-12] MEDS: predniSONE 20 MG, predniSONE 10 MG 30 MG PO (08:46)
[2024-07-12] MEDS: LORATADINE 10 MG TABLET PO (08:46)
[2024-07-12] MEDS: amLODIPine BESYLATE 5 MG TABLET 10 MG PO (08:47)
[2024-07-12] MEDS: CLOPIDOGREL BISULFATE 75 MG TABLET PO (08:48)
[2024-07-12] MEDS: FUROSEMIDE 40 MG TABLET PO (08:48)
[2024-07-12] MEDS: guaiFENesin 12 HR 600 MG TABCR PO ×2 (08:49→21:26)
[2024-07-12] MEDS: LOSARTAN POTASSIUM 50 MG TABLET 100 MG PO (08:49)
[2024-07-12] MEDS: TIMOLOL MALEATE 0.5% OP SOLN 5 ML BOTTLE 1 DROP EACH EYE (08:51)
[2024-07-12] MEDS: FLUTICASONE PROPIONATE 0.05% NA SPR 16 GM BTL (*BKC) 2 SPRAY NASAL (08:51)
[2024-07-12] MEDS: INSULIN HUMAN LISPRO (*BKC) 1,000 UNITS/10 ML VIAL SUB-Q (11:40)
[2024-07-12 11:41] LABS: Glucose Point of Care 248 mg/dl (65-105)
[2024-07-12 16:27] LABS: Glucose Point of Care 199 mg/dl (65-105)
[2024-07-12] MEDS: guaiFENesin 200 MG/10 ML UDC 100 MG PO (21:25)
[2024-07-12] MEDS: MELATONIN 5 MG TABLET PO (21:25)
[2024-07-12] MEDS: guaiFENesin/CODEINE 100/10 MG 5 ML SYRUP 10 ML PO (21:25)
[2024-07-12] MEDS: ALPRAZolam (*CRX) 0.5 MG TABLET PO (21:26)
[2024-07-12] MEDS: SERTRALINE HCL 25 MG TABLET PO (21:26)
[2024-07-12 21:30] LABS: Glucose Point of Care 245 mg/dl (65-105)
[2024-07-13] VITALS (14 sets, daily range): BP systolic 105–123; BP diastolic 63–69; PULSE 70–95; RESP 16–20; TEMP 35.9–36.4; O2SAT 90–100
[2024-07-13] MEDS: IPRATROPIUM 0.5 MG/ALBUTEROL SULFATE 2.5 MG AMPUL.NEB 3 ML INHALATION ×4 (00:30→16:44)
[2024-07-13 05:50] LABS: Basophils Absolute Auto 0.01 K/mm3 (0.00-0.10); Basophils Percent Auto 0.1 % (0.0-1.0); Eosinophils Absolute Auto 0.08 K/mm3 (0.02-0.50); Eosinophils Percent Auto 0.7 % (1.0-6.0); Hematocrit 40.2 % (35.0-42.0); Hemoglobin 12.6 g/dL (11.7-13.8); Immature Granulocyte Absolute 0.05 K/mm3 (0.00-0.00); Immature Granulocyte Percent A 0.4 % (0.0-0.0); Lymphocytes Absolute Auto 2.87 K/mm3 (1.10-4.50); Lymphocytes Percent Auto 24.3 % (18.0-42.0); Mean Corpuscular HGB Conc 31.3 g/dL (32-36); Mean Corpuscular Hemoglobin 30.6 pg (27.0-31.0); Mean Corpuscular Volume 97.6 fL (78.0-102.0); Mean Platelet Volume 9.6 fl (9.2-11.8); Monocytes Absolute Auto 0.86 K/mm3 (0.10-0.90); Monocytes Percent Auto 7.3 % (2.0-11.0); Neutrophils Absolute Auto 7.96 K/mm3 (1.70-7.20); Neutrophils Percent Auto 67.2 % (50.0-70.0); Platelet Count Result 354 K/mm3 (150-420); Red Blood Count 4.12 M/mm3 (4.20-5.40); Red Cell Distribution Width 13.2 % (11.6-14.4); White Blood Count 11.8 K/mm3 (4.8-10.8)
[2024-07-13] MEDS: LEVOTHYROXINE SODIUM 75 MCG TABLET BY MOUTH (05:54)
[2024-07-13] MEDS: BUDESONIDE/FORMOTEROL (*SP) 160-4.5 MCG 6 GM INH 2 PUFF INHALATION ×2 (05:54→19:11)
[2024-07-13] MEDS: CLOTRIMAZOLE 10 MG TROC PO ×2 (05:59→19:13)
[2024-07-13 06:16] LABS: Alanine Aminotransferase 27 U/L (14-59); Albumin Level 2.7 g/dL (3.4-5.0); Alkaline Phosphatase 66 U/L (46-116); Anion Gap 6 mmol/L (4-12); Aspartate Amino Transferase 17 U/L (15-37); Bilirubin,Total 0.3 mg/dL (0.00-1.00); Blood Urea Nitrogen 52 mg/dL (7-18); Calcium 8.8 mg/dL (8.5-10.1); Carbon Dioxide 29 mmol/L (21-32); Chloride 101 mmol/L (98-108); Estimated CRCL calculation 29 ml/min; Estimated Glomerular Filt Rate 36; Glucose 94 mg/dL (70-99); Magnesium 2.2 mg/dL (1.8-2.4); NT Pro B Type Natriuretic Pept 5745 pg/mL (0-450); Osmolality Calculated 296 mOsm/kg (285-295); Potassium 4.4 mmol/L (3.5-5.1); Sodium 136 mmol/L (136-145)
[2024-07-13 06:50] LABS: Total Protein 6.4 g/dL (6.4-8.2)
[2024-07-13] MEDS: FLUTICASONE PROPIONATE 0.05% NA SPR 16 GM BTL (*BKC) 2 SPRAY NASAL (08:54)
[2024-07-13] MEDS: TIMOLOL MALEATE 0.5% OP SOLN 5 ML BOTTLE 1 DROP EACH EYE (08:54)
[2024-07-13] MEDS: ATORVASTATIN 10 MG TABLET PO (08:55)
[2024-07-13] MEDS: guaiFENesin 12 HR 600 MG TABCR PO ×2 (08:55→20:54)
[2024-07-13] MEDS: GLIMEPIRIDE 1 MG TABLET 3 MG PO (08:55)
[2024-07-13] MEDS: amLODIPine BESYLATE 5 MG TABLET 10 MG PO (08:55)
[2024-07-13] MEDS: PHENYLEPH/SHARK OIL/MO/PETROL CREAM 26 GM 1 APPLIC RECTAL (08:55)
[2024-07-13] MEDS: CLOPIDOGREL BISULFATE 75 MG TABLET PO (08:55)
[2024-07-13] MEDS: polyethylene glycoL 3350 17 GM POWD.PACK PO (08:55)
[2024-07-13] MEDS: LORATADINE 10 MG TABLET PO (08:55)
[2024-07-13] MEDS: FUROSEMIDE 40 MG TABLET PO (08:55)
[2024-07-13] MEDS: predniSONE 20 MG, predniSONE 10 MG 30 MG PO (08:55)
[2024-07-13] MEDS: levoFLOXacin TAB 500 MG, levoFLOXacin TAB 250 MG 750 MG PO (08:55)
[2024-07-13] MEDS: LOSARTAN POTASSIUM 50 MG TABLET 100 MG PO (08:56)
[2024-07-13] MEDS: METOPROLOL TARTRATE 50 MG TAB 100 MG PO ×2 (08:56→20:54)
[2024-07-13] MEDS: ALPRAZolam (*CRX) 0.5 MG TABLET PO ×2 (09:03→20:53)
[2024-07-13 12:09] LABS: Glucose Point of Care 210 mg/dl (65-105)
[2024-07-13] MEDS: INSULIN HUMAN LISPRO (*BKC) 1,000 UNITS/10 ML VIAL SUB-Q ×2 (12:09→17:17)
[2024-07-13 17:06] LABS: Glucose Point of Care 231 mg/dl (65-105)
[2024-07-13 20:46] LABS: Glucose Point of Care 277 mg/dl (65-105)
[2024-07-13] MEDS: guaiFENesin/CODEINE 100/10 MG 5 ML SYRUP 10 ML PO (20:53)
[2024-07-13] MEDS: MELATONIN 5 MG TABLET PO (20:53)
[2024-07-13] MEDS: guaiFENesin 200 MG/10 ML UDC 100 MG PO (20:53)
[2024-07-13] MEDS: SERTRALINE HCL 25 MG TABLET PO (20:54)
[2024-07-14] VITALS (15 sets, daily range): BP systolic 100–116; BP diastolic 55–60; PULSE 64–102; RESP 16–20; TEMP 35.9–37; O2SAT 92–98
[2024-07-14] MEDS: IPRATROPIUM 0.5 MG/ALBUTEROL SULFATE 2.5 MG AMPUL.NEB 3 ML INHALATION ×4 (00:32→16:43)
--- NOTE | 2024-07-14 00:35 | PC.NURSE ---
Pt given a nebulizer treatment which she tolerated well.
--- NOTE | 2024-07-14 02:50 | PC.NURSE ---
Pt up to the bathroom with the walker and standby assist of one. Pt voided and returned to bed with the walker and standby assist of one.
--- NOTE | 2024-07-14 04:10 | PC.NURSE ---
Pt asleep and no signs of discomfort or respiratory distress noted.
--- NOTE | 2024-07-14 05:30 | PC.NURSE ---
Pt given her nuebulizer treatment per respiratory therapy.
[2024-07-14] MEDS: LEVOTHYROXINE SODIUM 75 MCG TABLET BY MOUTH (05:45)
[2024-07-14] MEDS: BUDESONIDE/FORMOTEROL (*SP) 160-4.5 MCG 6 GM INH 2 PUFF INHALATION ×2 (05:46→19:54)
[2024-07-14] MEDS: CLOTRIMAZOLE 10 MG TROC PO ×2 (05:51→19:57)
[2024-07-14 08:13] LABS: Glucose Point of Care 80 mg/dl (65-105)
[2024-07-14] MEDS: LOSARTAN POTASSIUM 50 MG TABLET 100 MG PO (09:55)
[2024-07-14] MEDS: amLODIPine BESYLATE 5 MG TABLET 10 MG PO (09:55)
[2024-07-14] MEDS: CLOPIDOGREL BISULFATE 75 MG TABLET PO (09:55)
[2024-07-14] MEDS: GLIMEPIRIDE 1 MG TABLET 3 MG PO (09:56)
[2024-07-14] MEDS: polyethylene glycoL 3350 17 GM POWD.PACK PO (09:56)
[2024-07-14] MEDS: METOPROLOL TARTRATE 50 MG TAB 100 MG PO ×2 (09:56→21:12)
[2024-07-14] MEDS: guaiFENesin 12 HR 600 MG TABCR PO ×2 (09:56→21:13)
[2024-07-14] MEDS: LORATADINE 10 MG TABLET PO (09:56)
[2024-07-14] MEDS: predniSONE 20 MG, predniSONE 10 MG 30 MG PO (09:56)
[2024-07-14] MEDS: FUROSEMIDE 40 MG TABLET PO (09:56)
[2024-07-14] MEDS: FLUTICASONE PROPIONATE 0.05% NA SPR 16 GM BTL (*BKC) 2 SPRAY NASAL (09:56)
[2024-07-14] MEDS: TIMOLOL MALEATE 0.5% OP SOLN 5 ML BOTTLE 1 DROP EACH EYE (09:56)
[2024-07-14 15:50] LABS: Glucose Point of Care 172 mg/dl (65-105)
[2024-07-14 16:12] LABS: Glucose Point of Care 268 mg/dl (65-105)
[2024-07-14] MEDS: INSULIN HUMAN LISPRO (*BKC) 1,000 UNITS/10 ML VIAL SUB-Q (17:02)
[2024-07-14 21:10] LABS: Glucose Point of Care 223 mg/dl (65-105)
[2024-07-14] MEDS: ALPRAZolam (*CRX) 0.5 MG TABLET PO (21:12)
[2024-07-14] MEDS: guaiFENesin/CODEINE 100/10 MG 5 ML SYRUP 10 ML PO (21:13)
[2024-07-14] MEDS: MELATONIN 5 MG TABLET PO (21:13)
[2024-07-14] MEDS: SENNA/DOCUSATE SODIUM TABLET 1 TAB PO (21:13)
[2024-07-14] MEDS: SERTRALINE HCL 25 MG TABLET PO (21:13)
[2024-07-14] MEDS: guaiFENesin 200 MG/10 ML UDC 100 MG PO (21:13)
[2024-07-15] VITALS (14 sets, daily range): BP systolic 102–120; BP diastolic 57–68; PULSE 76–97; RESP 12–20; TEMP 36.6; O2SAT 93–98
[2024-07-15] MEDS: IPRATROPIUM 0.5 MG/ALBUTEROL SULFATE 2.5 MG AMPUL.NEB 3 ML INHALATION ×4 (01:25→16:57)
[2024-07-15] MEDS: LEVOTHYROXINE SODIUM 75 MCG TABLET BY MOUTH (06:19)
[2024-07-15] MEDS: CLOTRIMAZOLE 10 MG TROC PO ×2 (06:20→18:15)
[2024-07-15] MEDS: BUDESONIDE/FORMOTEROL (*SP) 160-4.5 MCG 6 GM INH 2 PUFF INHALATION ×2 (06:20→18:15)
[2024-07-15 08:00] LABS: Glucose Point of Care 96 mg/dl (65-105)
[2024-07-15] MEDS: LOSARTAN POTASSIUM 50 MG TABLET 100 MG PO (09:00)
[2024-07-15] MEDS: TIMOLOL MALEATE 0.5% OP SOLN 5 ML BOTTLE 1 DROP EACH EYE (09:38)
[2024-07-15] MEDS: FLUTICASONE PROPIONATE 0.05% NA SPR 16 GM BTL (*BKC) 2 SPRAY NASAL (09:38)
[2024-07-15] MEDS: levoFLOXacin TAB 500 MG, levoFLOXacin TAB 250 MG 750 MG PO (09:39)
[2024-07-15] MEDS: METOPROLOL TARTRATE 50 MG TAB 100 MG PO ×2 (09:39→21:06)
[2024-07-15] MEDS: amLODIPine BESYLATE 5 MG TABLET 10 MG PO (09:39)
[2024-07-15] MEDS: GLIMEPIRIDE 1 MG TABLET 3 MG PO (09:39)
[2024-07-15] MEDS: guaiFENesin 12 HR 600 MG TABCR PO ×2 (09:39→21:07)
[2024-07-15] MEDS: predniSONE 20 MG, predniSONE 10 MG 30 MG PO (09:40)
[2024-07-15] MEDS: ATORVASTATIN 10 MG TABLET PO (09:40)
[2024-07-15] MEDS: CLOPIDOGREL BISULFATE 75 MG TABLET PO (09:40)
[2024-07-15] MEDS: LORATADINE 10 MG TABLET PO (09:40)
[2024-07-15] MEDS: FUROSEMIDE 40 MG TABLET PO (09:40)
[2024-07-15 12:06] LABS: Glucose Point of Care 230 mg/dl (65-105)
[2024-07-15] MEDS: INSULIN HUMAN LISPRO (*BKC) 1,000 UNITS/10 ML VIAL SUB-Q (13:23)
[2024-07-15 17:06] LABS: Glucose Point of Care 154 mg/dl (65-105)
[2024-07-15] MEDS: MELATONIN 5 MG TABLET PO (21:07)
[2024-07-15] MEDS: SENNA/DOCUSATE SODIUM TABLET 1 TAB PO (21:07)
[2024-07-15] MEDS: SERTRALINE HCL 25 MG TABLET PO (21:07)
[2024-07-15] MEDS: guaiFENesin 200 MG/10 ML UDC 100 MG PO (21:07)
[2024-07-15] MEDS: ALPRAZolam (*CRX) 0.5 MG TABLET PO (21:07)
[2024-07-15] MEDS: guaiFENesin/CODEINE 100/10 MG 5 ML SYRUP 10 ML PO (21:07)
[2024-07-15 21:24] LABS: Glucose Point of Care 279 mg/dl (65-105)
[2024-07-16] VITALS (10 sets, daily range): BP systolic 96–111; BP diastolic 57–61; PULSE 60–97; RESP 16–20; TEMP 35.7–36.4; O2SAT 94–97
[2024-07-16] MEDS: IPRATROPIUM 0.5 MG/ALBUTEROL SULFATE 2.5 MG AMPUL.NEB 3 ML INHALATION ×4 (00:16→18:51)
[2024-07-16] MEDS: LEVOTHYROXINE SODIUM 75 MCG TABLET BY MOUTH (06:09)
[2024-07-16] MEDS: BUDESONIDE/FORMOTEROL (*SP) 160-4.5 MCG 6 GM INH 2 PUFF INHALATION ×2 (06:13→18:51)
[2024-07-16] MEDS: CLOTRIMAZOLE 10 MG TROC PO ×2 (06:13→18:54)
[2024-07-16 07:39] LABS: Glucose Point of Care 100 mg/dl (65-105)
[2024-07-16] MEDS: polyethylene glycoL 3350 17 GM POWD.PACK PO (08:55)
[2024-07-16] MEDS: CLOPIDOGREL BISULFATE 75 MG TABLET PO (08:56)
[2024-07-16] MEDS: amLODIPine BESYLATE 5 MG TABLET 10 MG PO (08:56)
[2024-07-16] MEDS: GLIMEPIRIDE 1 MG TABLET 3 MG PO (08:56)
[2024-07-16] MEDS: LOSARTAN POTASSIUM 50 MG TABLET 100 MG PO (08:57)
[2024-07-16] MEDS: predniSONE 20 MG, predniSONE 10 MG 30 MG PO (08:57)
[2024-07-16] MEDS: guaiFENesin 12 HR 600 MG TABCR PO ×2 (08:58→21:21)
[2024-07-16] MEDS: METOPROLOL TARTRATE 50 MG TAB 100 MG PO ×2 (08:58→21:21)
[2024-07-16] MEDS: LORATADINE 10 MG TABLET PO (08:59)
[2024-07-16] MEDS: FUROSEMIDE 40 MG TABLET PO (08:59)
[2024-07-16] MEDS: FLUTICASONE PROPIONATE 0.05% NA SPR 16 GM BTL (*BKC) 2 SPRAY NASAL (09:02)
[2024-07-16] MEDS: TIMOLOL MALEATE 0.5% OP SOLN 5 ML BOTTLE 1 DROP EACH EYE (09:02)
[2024-07-16 12:01] LABS: Glucose Point of Care 197 mg/dl (65-105)
[2024-07-16 16:47] LABS: Glucose Point of Care 274 mg/dl (65-105)
[2024-07-16] MEDS: INSULIN HUMAN LISPRO (*BKC) 1,000 UNITS/10 ML VIAL SUB-Q (17:25)
[2024-07-16] MEDS: guaiFENesin 200 MG/10 ML UDC 100 MG PO (21:21)
[2024-07-16] MEDS: SERTRALINE HCL 25 MG TABLET PO (21:21)
[2024-07-16] MEDS: guaiFENesin/CODEINE 100/10 MG 5 ML SYRUP 10 ML PO (21:21)
[2024-07-16] MEDS: SENNA/DOCUSATE SODIUM TABLET 1 TAB PO (21:22)
[2024-07-16] MEDS: ALPRAZolam (*CRX) 0.5 MG TABLET PO (21:22)
[2024-07-16] MEDS: MELATONIN 5 MG TABLET PO (21:22)
[2024-07-16 21:39] LABS: Glucose Point of Care 177 mg/dl (65-105)
[2024-07-17] VITALS (11 sets, daily range): BP systolic 105–109; BP diastolic 49–73; PULSE 56–103; RESP 16–18; TEMP 36.1–36.4; O2SAT 92–97
[2024-07-17] MEDS: IPRATROPIUM 0.5 MG/ALBUTEROL SULFATE 2.5 MG AMPUL.NEB 3 ML INHALATION ×4 (00:41→17:54)
[2024-07-17] MEDS: BUDESONIDE/FORMOTEROL (*SP) 160-4.5 MCG 6 GM INH 2 PUFF INHALATION ×2 (06:22→17:54)
[2024-07-17] MEDS: LEVOTHYROXINE SODIUM 75 MCG TABLET BY MOUTH (06:22)
[2024-07-17] MEDS: CLOTRIMAZOLE 10 MG TROC PO ×2 (06:36→18:14)
[2024-07-17 07:54] LABS: Glucose Point of Care 95 mg/dl (65-105)
[2024-07-17] MEDS: FLUTICASONE PROPIONATE 0.05% NA SPR 16 GM BTL (*BKC) 2 SPRAY NASAL (09:18)
[2024-07-17] MEDS: GLIMEPIRIDE 1 MG TABLET 3 MG PO (09:19)
[2024-07-17] MEDS: TIMOLOL MALEATE 0.5% OP SOLN 5 ML BOTTLE 1 DROP EACH EYE (09:19)
[2024-07-17] MEDS: levoFLOXacin TAB 500 MG, levoFLOXacin TAB 250 MG 750 MG PO (09:20)
[2024-07-17] MEDS: METOPROLOL TARTRATE 50 MG TAB 100 MG PO ×2 (09:21→21:35)
[2024-07-17] MEDS: predniSONE 20 MG, predniSONE 10 MG 30 MG PO (09:21)
[2024-07-17] MEDS: LOSARTAN POTASSIUM 50 MG TABLET 100 MG PO (09:22)
[2024-07-17] MEDS: amLODIPine BESYLATE 5 MG TABLET 10 MG PO (09:22)
[2024-07-17] MEDS: ATORVASTATIN 10 MG TABLET PO (09:25)
[2024-07-17] MEDS: FUROSEMIDE 40 MG TABLET PO (09:25)
[2024-07-17] MEDS: guaiFENesin 12 HR 600 MG TABCR PO ×2 (09:25→21:35)
[2024-07-17] MEDS: CLOPIDOGREL BISULFATE 75 MG TABLET PO (09:26)
[2024-07-17] MEDS: LORATADINE 10 MG TABLET PO (09:26)
[2024-07-17] MEDS: polyethylene glycoL 3350 17 GM POWD.PACK PO (09:27)
[2024-07-17 11:46] LABS: Glucose Point of Care 175 mg/dl (65-105)
[2024-07-17 16:47] LABS: Glucose Point of Care 202 mg/dl (65-105)
[2024-07-17] MEDS: INSULIN HUMAN LISPRO (*BKC) 1,000 UNITS/10 ML VIAL SUB-Q (17:51)
[2024-07-17] MEDS: SERTRALINE HCL 25 MG TABLET PO (21:35)
[2024-07-17] MEDS: guaiFENesin 200 MG/10 ML UDC 100 MG PO (21:35)
[2024-07-17] MEDS: ALPRAZolam (*CRX) 0.5 MG TABLET PO (21:35)
[2024-07-17] MEDS: SENNA/DOCUSATE SODIUM TABLET 1 TAB PO (21:35)
[2024-07-17] MEDS: MELATONIN 5 MG TABLET PO (21:35)
[2024-07-17] MEDS: guaiFENesin/CODEINE 100/10 MG 5 ML SYRUP 10 ML PO (21:36)
[2024-07-18] VITALS (11 sets, daily range): BP systolic 103–123; BP diastolic 62–80; PULSE 76–110; RESP 16–18; TEMP 35.8–36.1; O2SAT 91–100
[2024-07-18 00:45] LABS: Glucose Point of Care 170 mg/dl (65-105)
[2024-07-18] MEDS: IPRATROPIUM 0.5 MG/ALBUTEROL SULFATE 2.5 MG AMPUL.NEB 3 ML INHALATION ×2 (00:47→05:31)
[2024-07-18] MEDS: LEVOTHYROXINE SODIUM 75 MCG TABLET BY MOUTH (06:29)
[2024-07-18] MEDS: BUDESONIDE/FORMOTEROL (*SP) 160-4.5 MCG 6 GM INH 2 PUFF INHALATION ×2 (06:30→18:26)
[2024-07-18] MEDS: CLOTRIMAZOLE 10 MG TROC PO ×2 (06:33→18:27)
[2024-07-18 08:22] LABS: Glucose Point of Care 98 mg/dl (65-105)
[2024-07-18 09:43] LABS: Hematocrit 41.6 % (35.0-42.0); Hemoglobin 13.1 g/dL (11.7-13.8); Mean Corpuscular HGB Conc 31.5 g/dL (32-36); Mean Corpuscular Hemoglobin 30.7 pg (27.0-31.0); Mean Corpuscular Volume 97.4 fL (78.0-102.0); Mean Platelet Volume 9.6 fl (9.2-11.8); Platelet Count Result 350 K/mm3 (150-420); Red Blood Count 4.27 M/mm3 (4.20-5.40); Red Cell Distribution Width 13.5 % (11.6-14.4); White Blood Count 15.2 K/mm3 (4.8-10.8)
[2024-07-18] MEDS: FLUTICASONE PROPIONATE 0.05% NA SPR 16 GM BTL (*BKC) 2 SPRAY NASAL (09:44)
[2024-07-18] MEDS: TIMOLOL MALEATE 0.5% OP SOLN 5 ML BOTTLE 1 DROP EACH EYE (09:45)
[2024-07-18] MEDS: polyethylene glycoL 3350 17 GM POWD.PACK PO (09:46)
[2024-07-18] MEDS: FUROSEMIDE 40 MG TABLET PO (09:46)
[2024-07-18] MEDS: guaiFENesin 12 HR 600 MG TABCR PO ×2 (09:46→21:44)
[2024-07-18] MEDS: LOSARTAN POTASSIUM 50 MG TABLET 100 MG PO (09:46)
[2024-07-18] MEDS: amLODIPine BESYLATE 5 MG TABLET 10 MG PO (09:46)
[2024-07-18] MEDS: CLOPIDOGREL BISULFATE 75 MG TABLET PO (09:46)
[2024-07-18] MEDS: METOPROLOL TARTRATE 50 MG TAB 100 MG PO ×2 (09:46→21:44)
[2024-07-18] MEDS: LORATADINE 10 MG TABLET PO (09:46)
[2024-07-18] MEDS: GLIMEPIRIDE 1 MG TABLET 3 MG PO (09:46)
[2024-07-18] MEDS: ERGOCALCIFEROL 50,000 UNITS CAPSULE 50000 UNITS PO (09:47)
[2024-07-18 10:19] LABS: Alanine Aminotransferase 21 U/L (14-59); Albumin Level 2.8 g/dL (3.4-5.0); Alkaline Phosphatase 73 U/L (46-116); Anion Gap 7 mmol/L (4-12); Aspartate Amino Transferase 15 U/L (15-37); Bilirubin,Total 0.4 mg/dL (0.00-1.00); Blood Urea Nitrogen 41 mg/dL (7-18); Calcium 8.5 mg/dL (8.5-10.1); Carbon Dioxide 29 mmol/L (21-32); Chloride 102 mmol/L (98-108); Estimated CRCL calculation 26 ml/min; Estimated Glomerular Filt Rate 33; Glucose 225 mg/dL (70-99); Osmolality Calculated 303 mOsm/kg (285-295); Potassium 3.9 mmol/L (3.5-5.1); Sodium 138 mmol/L (136-145); Total Protein 6.4 g/dL (6.4-8.2)
--- NOTE | 2024-07-18 10:55 | P.PNIM_ITS ---
Progress Note: A&P Assessment and Plan (1) Physical deconditioning: Code(s): R53.81 - Other malaise Status: Acute Assessment and Plan: * PT and OT ordered * Continue fall precautions * CC 07/19/2024 (2) Diabetes mellitus: Code(s): E11.9 - Type 2 diabetes mellitus without complications Status: Acute Assessment and Plan: * Blood sugars ranging 131-228 * Hgb A1C 6.3 on 07/03/2024 * Accu checks AC/HS * High-dose SSI ordered * Continue glimepiride * hypoglycemic protocol in place * Diabetic diet ordered (3) CHF (congestive heart failure): Qualifiers: Heart failure chronicity: unspecified Heart failure type: unspecified Qualified Code(s): I50.9 - Heart failure, unspecified Code(s): I50.9 - Heart failure, unspecified Status: Acute Assessment and Plan: * Echocardiogram from 07/05/2024 reviewed which showed normal LV systolic function with an estimated EF of 60-65%, grade 1 diastolic dysfunction, moderate pulmonary hypertension with an estimated pulmonary arterial systolic pressure 51 mmHg, moderate aortic valve sclerosis * Continue Lasix 40 mg daily (4) Hypertension: Code(s): I10 - Essential (primary) hypertension Status: Acute Assessment and Plan: * Blood pressure ranging 125/58 to 157/74 * Continue losartan (5) Hypothyroidism: Code(s): E03.9 - Hypothyroidism, unspecified Status: Acute Assessment and Plan: * Continue Synthroid (6) Depression: Code(s): F32.A - Depression, unspecified Status: Acute Assessment and Plan: * Continue Zoloft (7) Chronic kidney disease: Code(s): N18.9 - Chronic kidney disease, unspecified Status: Acute Assessment and Plan: * Creatinine 1.50 * Baseline creatinine ranging 1.11 to 1.43 * close to to baseline will need to monitor now that she is on Lasix daily (8) Community acquired pneumonia: Code(s): J18.9 - Pneumonia, unspecified organism Status: Resolved Assessment and Plan: * Currently on Levaquin completed therapy * Continue to wean O2 for sat greater than 92% * Continue breathing treatments q.6 hours * Taper prednisone * Robitussin with codeine for at bedtime stopped * Continue Mucinex * Continue pep therapy and incentive spirometry * May need a home O2 eval before discharge/Weaned off Oxygen Stopped prednisone Plan Code status: DNR DVT prophylaxis: Not indicated patient is a swing bed Stress ulcer prophylaxis: NA PT/OT notes: Swing bed CC 07/19/2024 Disposition: patient continues admission to swing bed unit progressing close to baseline plan for care conference tomorrow to determine if patient will need longer rehab prior to returning home on own. Time Spent With Patient Time with patient: 15 - 25 minutes Subjective Date/time seen: 07/18/24 10:55 Interval history: Patient Is an 88-year-old female who was admitted for rehabilitation and to swing bed. 07/18/2024: Patient dong well today states she feels she is progressing back to her baseline but still a little unsteady knowing she will be going home by herself. Patient reports breathing has improved and is not requiring any oxygen. Patient denied any chest pain, nausea, vomiting, abdominal pain or difficulty with urination. labs reviewed today showed small bump in WBC likely due to her being prescribed prednisone which I have discontinued. Review of Systems Review of Systems: All systems reviewed & are unremarkable except as noted in HPI and below Exam Narrative: General: In no acute distress, well nourished, cheerful Head: atraumatic, no encephalopathy ENT: moist mucous membranes Neck: supple, no JVD Cardiac: RRR Respiratory: lung penny are clear to auscultation Gastrointestinal: soft, non-distended Extremities: moves all extremities well, bilateral lower extremity edema Neuro: Alert and oriented x4, cranial nerves intact, no neuro deficits. Objective Data Vital Signs Vital Signs: Vital Signs - 24 hr 07/17/24 12:44 07/17/24 13:00 07/17/24 16:00 Temperature 97.0 F L Pulse Rate 82 85 56 L Respiratory Rate 16 16 16 Blood Pressure 109/49 L Pulse Oximetry 94 95 97 Oxygen Delivery Room Air Oxygen Flow Rate 0 0 07/17/24 18:00 07/17/24 20:00 07/17/24 21:35 Temperature Pulse Rate 81 95 95 Respiratory Rate 16 16 Blood Pressure Pulse Oximetry 97 97 Oxygen Delivery Room Air Oxygen Flow Rate 07/18/24 00:00 07/18/24 00:45 07/18/24 01:10 Temperature 97.0 F L Pulse Rate 98 98 110 H Respiratory Rate 16 16 16 Blood Pressure 123/80 Pulse Oximetry 92 91 100 Oxygen Delivery Room Air Oxygen Flow Rate 0 0 07/18/24 05:32 07/18/24 05:43 07/18/24 07:55 Temperature 96.7 F L Pulse Rate 92 78 94 Respiratory Rate 16 16 16 Blood Pressure 111/62 Pulse Oximetry 96 100 96 Oxygen Delivery Room Air Oxygen Flow Rate 07/18/24 09:46 Temperature Pulse Rate 94 Respiratory Rate Blood Pressure Pulse Oximetry Oxygen Delivery Oxygen Flow Rate Intake/Output Intake/Output: Intake & Output 07/15/24 07/16/24 07/17/24 07/18/24 23:59 23:59 23:59 23:59 Intake Total 1974 1974 2029 550 Balance 1974 1974 2030 550 Meds/Results Medications: Active Medications Generic Name Dose Route Start Last Admin Trade Name Freq PRN Reason Stop Dose Admin Albuterol/Ipratropium 3 ml 07/18/24 09:15 Ipratropium 0.5 Mg/Albuterol Sulfate 2.5 Mg Ampul.Neb 3 Ml INHALATION Q6HRT PRN wheezing Alprazolam 0.5 mg 07/09/24 21:00 07/17/24 21:35 Alprazolam (*Crx) 0.5 Mg Tablet PO 0.5 mg HS VANESSA Administration Alprazolam 0.5 mg 07/10/24 20:24 07/13/24 09:03 Alprazolam (*Crx) 0.5 Mg Tablet PO 0.5 mg DAILY PRN Administration Anxiety Amlodipine Besylate 10 mg 07/08/24 09:00 07/18/24 09:46 Amlodipine Besylate 5 Mg Tablet PO 10 mg DAILY VANESSA Administration Atorvastatin Calcium 10 mg 07/09/24 09:00 07/17/24 09:25 Atorvastatin 10 Mg Tablet PO 10 mg Q48HR VANESSA Administration Benzocaine 1 lozenge 07/07/24 13:41 Benzocaine/Menthol (*Bkc) Lozenge PO PRN PRN cough Bisacodyl 5 mg 07/10/24 11:56 07/10/24 13:04 Bisacodyl 5 Mg Tablet Ec PO 5 mg DAILY PRN Administration Constipation Budesonide/Formoterol Fumarate 2 puff 07/07/24 18:30 07/18/24 06:30 Budesonide/Formoterol (*Sp) 160-4.5 Mcg 6 Gm Inh INHALATION 2 puff Q12HRT VANESSA Administration Clopidogrel Bisulfate 75 mg 07/08/24 09:00 07/18/24 09:46 Clopidogrel Bisulfate 75 Mg Tablet PO 75 mg DAILY VANESSA Administration Clotrimazole 10 mg 07/07/24 19:00 07/18/24 06:33 Clotrimazole 10 Mg Troc PO 10 mg Q12H VANESSA Administration Dextrose 12.5 gm 07/07/24 11:57 Dextrose 50% 25 Gm/50 Ml Syringe IV PUSH PRN PRN Hypoglycemia Protocol Ergocalciferol 50,000 units 07/11/24 09:00 07/18/24 09:47 Ergocalciferol 50,000 Units Capsule PO 50,000 units WEEKLY VANESSA Administration Fluticasone Propionate 2 spray 07/08/24 09:00 07/18/24 09:44 Fluticasone Propionate 0.05% Na Spr 16 Gm Btl (*Bkc) NASAL 2 spray QAM VANESSA Administration Furosemide 40 mg 07/08/24 11:30 07/18/24 09:46 Furosemide 40 Mg Tablet PO 40 mg DAILY VANESSA Administration Glimepiride 3 mg 07/08/24 09:00 07/18/24 09:46 Glimepiride 1 Mg Tablet PO 3 mg QAM VANESSA Administration Glucagon 1 mg 07/07/24 11:57 Glucagon For Inj 1 Mg Vial IM PRN PRN Hypoglycemia Protocol Glucose 15 gm 07/07/24 11:57 Glucose Oral Gel 15 Gm Of Glucse In 37.5 Gm Tube PO PRN PRN Hypoglycemia Protocol Guaifenesin 600 mg 07/07/24 21:00 07/18/24 09:46 Guaifenesin 12 Hr 600 Mg Tabcr PO 600 mg Q12HR VANESSA Administration Guaifenesin 100 mg 07/07/24 21:00 07/17/24 21:35 Guaifenesin 200 Mg/10 Ml Udc PO 100 mg HS VANESSA Administration Dextrose 1,000 mls @ 100 mls/hr 07/07/24 11:57 Dextrose 5% 1,000 Ml IVPB PRN PRN Hypoglycemia Protocol Insulin Human Lispro 4 - 8 units 07/07/24 12:00 07/18/24 09:50 Insulin Human Lispro (*Bkc) 1,000 Units/10 Ml Vial SUB-Q Not Given TIDWM VANESSA Protocol Levothyroxine Sodium 75 mcg 07/08/24 06:30 07/18/24 06:29 Levothyroxine Sodium 75 Mcg Tablet BY MOUTH 75 mcg DAILY@0630 VANESSA Administration Loratadine 10 mg 07/08/24 09:00 07/18/24 09:46 Loratadine 10 Mg Tablet PO 10 mg DAILY VANESSA Administration Losartan Potassium 100 mg 07/09/24 09:00 07/18/24 09:46 Losartan Potassium 50 Mg Tablet PO 100 mg DAILY VANESSA Administration Melatonin 5 mg 07/08/24 21:00 07/17/24 21:35 Melatonin 5 Mg Tablet PO 5 mg HS VANESSA Administration Metoprolol Tartrate 100 mg 07/07/24 21:00 07/18/24 09:46 Metoprolol Tartrate 50 Mg Tab PO 100 mg Q12HR VANESSA Administration Phenyleph/Shark Oil/[place] Butter 1 supp 07/11/24 08:53 Phenylephrine Hcl/[place] Butter Supp.Rect (*Bkc) RECTAL Q12HR PRN Hemorrhoids Phenyleph/Shark Oil/Min Oil/Petrol 1 applic 07/11/24 21:23 07/13/24 08:55 Phenyleph/Shark Oil/Mo/Petrol Cream 26 Gm RECTAL 1 applic DAILY PRN Administration Hemorrhoids Polyethylene Glycol 17 gm 07/09/24 09:00 07/18/24 09:46 Polyethylene Glycol 3350 17 Gm Powd.Pack PO 17 gm QAM VANESSA Administration Senna/Docusate Sodium 1 tab 07/14/24 21:00 07/17/24 21:35 Senna/Docusate Sodium Tablet PO 1 tab HS VANESSA Administration Sertraline HCl 25 mg 07/07/24 21:00 07/17/24 21:35 Sertraline Hcl 25 Mg Tablet PO 25 mg QHS VANESSA Administration Timolol Maleate 1 drop 07/08/24 09:00 07/18/24 09:45 Timolol Maleate 0.5% Op Soln 5 Ml Bottle EACH EYE 1 drop QAM VANESSA Administration Radiology Results: ITS Impressions Chest X-Ray 07/10/24 07:24 IMPRESSION: Highly suggestive bilateral pneumonia. Underlying fibrotic changes. Labs Labs: Laboratory Results - last 24 hr 07/17/24 07/17/24 07/17/24 11:40 16:41 21:25 WBC RBC Hgb Hct MCV MCH MCHC RDW Plt Count MPV Sodium Potassium Chloride Carbon Dioxide Anion Gap BUN Creatinine Estim Creat Clear Calc Estimated GFR Glucose POC Capillary Glucose 175 H 202 H 170 H Calculated Osmolality Calcium Total Bilirubin AST ALT Alkaline Phosphatase Total Protein Albumin 07/18/24 07/18/24 08:12 09:34 WBC 15.2 H RBC 4.27 Hgb 13.1 Hct 41.6 MCV 97.4 MCH 30.7 MCHC 31.5 L RDW 13.5 Plt Count 350 MPV 9.6 Sodium 138 Potassium 3.9 Chloride 102 Carbon Dioxide 29 Anion Gap 7 BUN 41 H Creatinine 1.50 H Estim Creat Clear Calc 26 Estimated GFR 33 L Glucose 225 H POC Capillary Glucose 98 Calculated Osmolality 303 H Calcium 8.5 Total Bilirubin 0.4 AST 15 ALT 21 Alkaline Phosphatase 73 Total Protein 6.4 Albumin 2.8 L Quality If No VTE Prophylaxis Answer both mechanical and pharmacologic: Reason no mechanical VTE proph: low risk/not indicated -Patient's previous records reviewed on admission -ER notes reviewed in detail on admission -discussed all findings and current treatment plan with patient/Family/POA -Consultations reviewed for recommendations -Patient's disposition for safe discharge discussed with correctional casework specialist Dictation performed by [employer] direct speech recognition software, therefore membership sales advisor variants and typographical errors may occur. Hospitalist MIPS Advance Care Plan I have confirmed that the patient's Advanced Care Plan is present, code status is documented, or surrogate decision maker is listed in patient medical record.: Yes Medication Reconciliation I have utilized all available resources to obtain, update and review the patients current medications (includes all prescriptions, OTC, herbals, cannabis, and nutritional supplements).: Yes The patient is not eligible for med reconciliation; the patient is in a emergent medical situation where delaying treatment would jeopardize the patients health.: No
[2024-07-18 11:41] LABS: Glucose Point of Care 233 mg/dl (65-105)
[2024-07-18] MEDS: INSULIN HUMAN LISPRO (*BKC) 1,000 UNITS/10 ML VIAL SUB-Q (11:46)
[2024-07-18 16:23] LABS: Glucose Point of Care 93 mg/dl (65-105)
[2024-07-18] MEDS: SERTRALINE HCL 25 MG TABLET PO (21:44)
[2024-07-18] MEDS: ALPRAZolam (*CRX) 0.5 MG TABLET PO (21:44)
[2024-07-18] MEDS: SENNA/DOCUSATE SODIUM TABLET 1 TAB PO (21:44)
[2024-07-18] MEDS: guaiFENesin 200 MG/10 ML UDC 100 MG PO (21:45)
[2024-07-18] MEDS: MELATONIN 5 MG TABLET PO (21:45)
[2024-07-18 21:56] LABS: Glucose Point of Care 163 mg/dl (65-105)
[2024-07-19] VITALS (7 sets, daily range): BP systolic 94–114; BP diastolic 54–65; PULSE 66–100; RESP 16; TEMP 35.8–36.6; O2SAT 92–97
[2024-07-19] MEDS: LEVOTHYROXINE SODIUM 75 MCG TABLET BY MOUTH (06:47)
[2024-07-19] MEDS: CLOTRIMAZOLE 10 MG TROC PO ×2 (06:48→18:05)
[2024-07-19 08:18] LABS: Glucose Point of Care 113 mg/dl (65-105)
[2024-07-19] MEDS: FLUTICASONE PROPIONATE 0.05% NA SPR 16 GM BTL (*BKC) 2 SPRAY NASAL (09:30)
[2024-07-19] MEDS: LORATADINE 10 MG TABLET PO (09:31)
[2024-07-19] MEDS: LOSARTAN POTASSIUM 50 MG TABLET 100 MG PO (09:31)
[2024-07-19] MEDS: CLOPIDOGREL BISULFATE 75 MG TABLET PO (09:31)
[2024-07-19] MEDS: ATORVASTATIN 10 MG TABLET PO (09:31)
[2024-07-19] MEDS: FUROSEMIDE 40 MG TABLET PO (09:31)
[2024-07-19] MEDS: guaiFENesin 12 HR 600 MG TABCR PO ×2 (09:31→21:05)
[2024-07-19] MEDS: amLODIPine BESYLATE 5 MG TABLET 10 MG PO (09:31)
[2024-07-19] MEDS: GLIMEPIRIDE 1 MG TABLET 3 MG PO (09:31)
[2024-07-19] MEDS: METOPROLOL TARTRATE 50 MG TAB 100 MG PO ×2 (09:31→21:04)
[2024-07-19] MEDS: TIMOLOL MALEATE 0.5% OP SOLN 5 ML BOTTLE 1 DROP EACH EYE (09:32)
[2024-07-19 11:55] LABS: Glucose Point of Care 199 mg/dl (65-105)
[2024-07-19 17:04] LABS: Glucose Point of Care 134 mg/dl (65-105)
[2024-07-19] MEDS: BUDESONIDE/FORMOTEROL (*SP) 160-4.5 MCG 6 GM INH 2 PUFF INHALATION (18:05)
[2024-07-19] MEDS: guaiFENesin 200 MG/10 ML UDC 100 MG PO (21:04)
[2024-07-19] MEDS: ALPRAZolam (*CRX) 0.5 MG TABLET PO (21:04)
[2024-07-19] MEDS: MELATONIN 5 MG TABLET PO (21:05)
[2024-07-19] MEDS: SENNA/DOCUSATE SODIUM TABLET 1 TAB PO (21:05)
[2024-07-19] MEDS: SERTRALINE HCL 25 MG TABLET PO (21:05)
[2024-07-19 21:18] LABS: Glucose Point of Care 187 mg/dl (65-105)
--- NOTE | 2024-07-19 23:50 | PC.NURSE ---
Pt dozing quietly in bed. No signs of discomfort noted.
[2024-07-20] VITALS: BP 101/52; PULSE 94; RESP 20; TEMP 36.2; O2SAT 90
--- NOTE | 2024-07-20 01:30 | PC.NURSE ---
Pt up to the bathroom with her walker and assist of one. Pt voided and returned to bed with the walker and standby assist of one.
[2024-07-20] MEDS: LEVOTHYROXINE SODIUM 75 MCG TABLET BY MOUTH (05:58)
[2024-07-20] MEDS: BUDESONIDE/FORMOTEROL (*SP) 160-4.5 MCG 6 GM INH 2 PUFF INHALATION ×2 (05:58→19:01)
[2024-07-20] MEDS: CLOTRIMAZOLE 10 MG TROC PO ×2 (06:00→19:01)
[2024-07-20 08:00] VITALS: BP 110/55; PULSE 84; TEMP 36.6; O2SAT 98
[2024-07-20 08:09] LABS: Glucose Point of Care 136 mg/dl (65-105)
[2024-07-20 09:36] VITALS: PULSE 70
[2024-07-20] MEDS: guaiFENesin 12 HR 600 MG TABCR PO ×2 (09:36→21:28)
[2024-07-20] MEDS: FUROSEMIDE 40 MG TABLET PO (09:36)
[2024-07-20] MEDS: METOPROLOL TARTRATE 50 MG TAB 100 MG PO ×2 (09:36→21:28)
[2024-07-20] MEDS: LORATADINE 10 MG TABLET PO (09:36)
[2024-07-20] MEDS: GLIMEPIRIDE 1 MG TABLET 3 MG PO (09:37)
[2024-07-20] MEDS: CLOPIDOGREL BISULFATE 75 MG TABLET PO (09:37)
[2024-07-20] MEDS: LOSARTAN POTASSIUM 50 MG TABLET 100 MG PO (09:37)
[2024-07-20] MEDS: amLODIPine BESYLATE 5 MG TABLET 10 MG PO (09:37)
[2024-07-20] MEDS: FLUTICASONE PROPIONATE 0.05% NA SPR 16 GM BTL (*BKC) 2 SPRAY NASAL (09:38)
[2024-07-20] MEDS: TIMOLOL MALEATE 0.5% OP SOLN 5 ML BOTTLE 1 DROP EACH EYE (09:38)
[2024-07-20 11:44] LABS: Glucose Point of Care 217 mg/dl (65-105)
[2024-07-20] MEDS: INSULIN HUMAN LISPRO (*BKC) 1,000 UNITS/10 ML VIAL SUB-Q (12:25)
[2024-07-20 16:00] VITALS: BP 112/56; PULSE 94; RESP 18; TEMP 36.1; O2SAT 91
[2024-07-20 16:57] LABS: Glucose Point of Care 68 mg/dl (65-105)
[2024-07-20 21:26] LABS: Glucose Point of Care 211 mg/dl (65-105)
[2024-07-20] MEDS: guaiFENesin 200 MG/10 ML UDC 100 MG PO (21:27)
[2024-07-20 21:28] VITALS: PULSE 90
[2024-07-20] MEDS: MELATONIN 5 MG TABLET PO (21:28)
[2024-07-20] MEDS: ALPRAZolam (*CRX) 0.5 MG TABLET PO (21:28)
[2024-07-20] MEDS: SERTRALINE HCL 25 MG TABLET PO (21:28)
[2024-07-20 23:35] VITALS: BP 103/49; PULSE 85; RESP 20; TEMP 36.1; O2SAT 94
--- NOTE | 2024-07-21 05:17 | PC.NURSE ---
Passed liquid reich with reich chunks stool with urine
[2024-07-21] MEDS: LEVOTHYROXINE SODIUM 75 MCG TABLET BY MOUTH (06:12)
[2024-07-21] MEDS: BUDESONIDE/FORMOTEROL (*SP) 160-4.5 MCG 6 GM INH 2 PUFF INHALATION ×2 (06:16→18:53)
[2024-07-21] MEDS: CLOTRIMAZOLE 10 MG TROC PO ×2 (06:20→18:53)
--- NOTE | 2024-07-21 06:24 | PC.NURSE ---
States must take [place] with Symbicort. Geenva is not due to 0700. Informed Lynda transaction processor of need to change administration of [place] to time of Inhaler per pt. request.
--- NOTE | 2024-07-21 06:44 | PC.NURSE ---
Up to Bathroom then patient placed her dentures at sink, hearing aide placed by patient, and then ambulated to Chair. Given belongings and call light. Heat turned up in room per patient request.
[2024-07-21 08:00] VITALS: BP 111/64; PULSE 82; RESP 18; TEMP 36.6; O2SAT 95
[2024-07-21] MEDS: FLUTICASONE PROPIONATE 0.05% NA SPR 16 GM BTL (*BKC) 2 SPRAY NASAL (09:02)
[2024-07-21 09:03] VITALS: PULSE 72
[2024-07-21] MEDS: GLIMEPIRIDE 1 MG TABLET 3 MG PO (09:03)
[2024-07-21] MEDS: CLOPIDOGREL BISULFATE 75 MG TABLET PO (09:03)
[2024-07-21] MEDS: TIMOLOL MALEATE 0.5% OP SOLN 5 ML BOTTLE 1 DROP EACH EYE (09:03)
[2024-07-21] MEDS: LOSARTAN POTASSIUM 50 MG TABLET 100 MG PO (09:03)
[2024-07-21] MEDS: LORATADINE 10 MG TABLET PO (09:03)
[2024-07-21] MEDS: METOPROLOL TARTRATE 50 MG TAB 100 MG PO ×2 (09:03→21:07)
[2024-07-21] MEDS: amLODIPine BESYLATE 5 MG TABLET 10 MG PO (09:03)
[2024-07-21] MEDS: ATORVASTATIN 10 MG TABLET PO (09:04)
[2024-07-21] MEDS: guaiFENesin 12 HR 600 MG TABCR PO ×2 (09:04→21:07)
[2024-07-21] MEDS: FUROSEMIDE 40 MG TABLET PO (09:04)
[2024-07-21 12:01] LABS: Glucose Point of Care 246 mg/dl (65-105)
[2024-07-21 12:01] LABS: Glucose Point of Care 99 mg/dl (65-105)
[2024-07-21] MEDS: INSULIN HUMAN LISPRO (*BKC) 1,000 UNITS/10 ML VIAL SUB-Q (12:03)
[2024-07-21 16:00] VITALS: BP 116/68; PULSE 92; RESP 18; TEMP 36.4; O2SAT 94
[2024-07-21 17:10] LABS: Glucose Point of Care 53 mg/dl (65-105)
[2024-07-21 17:48] LABS: Glucose Point of Care 106 mg/dl (65-105)
[2024-07-21 20:00] VITALS: PULSE 66; RESP 18; O2SAT 94
[2024-07-21 21:07] VITALS: PULSE 65
[2024-07-21] MEDS: ALPRAZolam (*CRX) 0.5 MG TABLET PO (21:07)
[2024-07-21] MEDS: SERTRALINE HCL 25 MG TABLET PO (21:07)
[2024-07-21] MEDS: guaiFENesin 200 MG/10 ML UDC 100 MG PO (21:07)
[2024-07-21] MEDS: MELATONIN 5 MG TABLET PO (21:07)
[2024-07-21 21:28] LABS: Glucose Point of Care 132 mg/dl (65-105)
[2024-07-22] VITALS: BP 113/39; PULSE 67; RESP 16; TEMP 36.2; O2SAT 94
[2024-07-22] MEDS: LEVOTHYROXINE SODIUM 75 MCG TABLET BY MOUTH (06:38)
[2024-07-22] MEDS: CLOTRIMAZOLE 10 MG TROC PO ×2 (06:39→18:54)
[2024-07-22] MEDS: BUDESONIDE/FORMOTEROL (*SP) 160-4.5 MCG 6 GM INH 2 PUFF INHALATION ×2 (06:39→18:54)
[2024-07-22 08:00] VITALS: BP 102/44; PULSE 56; RESP 20; TEMP 36.3; O2SAT 92
[2024-07-22 08:05] LABS: Glucose Point of Care 95 mg/dl (65-105)
[2024-07-22] MEDS: FLUTICASONE PROPIONATE 0.05% NA SPR 16 GM BTL (*BKC) 2 SPRAY NASAL (09:17)
[2024-07-22 09:18] VITALS: PULSE 72
[2024-07-22] MEDS: LOSARTAN POTASSIUM 50 MG TABLET 100 MG PO (09:18)
[2024-07-22] MEDS: FUROSEMIDE 40 MG TABLET PO (09:18)
[2024-07-22] MEDS: METOPROLOL TARTRATE 50 MG TAB 100 MG PO ×2 (09:18→21:39)
[2024-07-22] MEDS: guaiFENesin 12 HR 600 MG TABCR PO ×2 (09:18→21:39)
[2024-07-22] MEDS: amLODIPine BESYLATE 5 MG TABLET 10 MG PO (09:18)
[2024-07-22] MEDS: GLIMEPIRIDE 1 MG TABLET 3 MG PO (09:18)
[2024-07-22] MEDS: CLOPIDOGREL BISULFATE 75 MG TABLET PO (09:18)
[2024-07-22] MEDS: TIMOLOL MALEATE 0.5% OP SOLN 5 ML BOTTLE 1 DROP EACH EYE (09:18)
[2024-07-22] MEDS: LORATADINE 10 MG TABLET PO (09:18)
[2024-07-22 12:03] LABS: Glucose Point of Care 206 mg/dl (65-105)
[2024-07-22] MEDS: INSULIN HUMAN LISPRO (*BKC) 1,000 UNITS/10 ML VIAL SUB-Q (12:04)
[2024-07-22 16:00] VITALS: BP 117/61; PULSE 58; RESP 16; TEMP 36.3; O2SAT 95
[2024-07-22 17:09] LABS: Glucose Point of Care 63 mg/dl (65-105)
[2024-07-22] MEDS: guaiFENesin 200 MG/10 ML UDC 100 MG PO (21:38)
[2024-07-22 21:39] VITALS: PULSE 76
[2024-07-22] MEDS: SENNA/DOCUSATE SODIUM TABLET 1 TAB PO (21:39)
[2024-07-22] MEDS: MELATONIN 5 MG TABLET PO (21:39)
[2024-07-22] MEDS: ALPRAZolam (*CRX) 0.5 MG TABLET PO (21:39)
[2024-07-22] MEDS: SERTRALINE HCL 25 MG TABLET PO (21:39)
[2024-07-22 21:40] LABS: Glucose Point of Care 125 mg/dl (65-105)
[2024-07-23] VITALS: BP 118/39; PULSE 76; RESP 16; TEMP 36.8; O2SAT 96
[2024-07-23] MEDS: LEVOTHYROXINE SODIUM 75 MCG TABLET BY MOUTH (06:04)
[2024-07-23] MEDS: CLOTRIMAZOLE 10 MG TROC PO ×2 (06:04→18:46)
[2024-07-23] MEDS: BUDESONIDE/FORMOTEROL (*SP) 160-4.5 MCG 6 GM INH 2 PUFF INHALATION ×2 (06:13→18:45)
[2024-07-23 07:53] LABS: Glucose Point of Care 115 mg/dl (65-105)
[2024-07-23 08:00] VITALS: BP 99/45; PULSE 68; RESP 14; TEMP 35.9; O2SAT 91
[2024-07-23 09:45] VITALS: PULSE 68
[2024-07-23] MEDS: METOPROLOL TARTRATE 50 MG TAB 100 MG PO ×2 (09:45→21:09)
[2024-07-23] MEDS: GLIMEPIRIDE 1 MG TABLET 3 MG PO (09:46)
[2024-07-23] MEDS: LOSARTAN POTASSIUM 50 MG TABLET 100 MG PO (09:46)
[2024-07-23] MEDS: amLODIPine BESYLATE 5 MG TABLET 10 MG PO (09:46)
[2024-07-23] MEDS: LORATADINE 10 MG TABLET PO (09:46)
[2024-07-23] MEDS: FLUTICASONE PROPIONATE 0.05% NA SPR 16 GM BTL (*BKC) 2 SPRAY NASAL (09:47)
[2024-07-23] MEDS: ATORVASTATIN 10 MG TABLET PO (09:47)
[2024-07-23] MEDS: FUROSEMIDE 40 MG TABLET PO (09:47)
[2024-07-23] MEDS: guaiFENesin 12 HR 600 MG TABCR PO ×2 (09:47→21:09)
[2024-07-23] MEDS: CLOPIDOGREL BISULFATE 75 MG TABLET PO (09:47)
[2024-07-23] MEDS: TIMOLOL MALEATE 0.5% OP SOLN 5 ML BOTTLE 1 DROP EACH EYE (09:48)
[2024-07-23 12:04] LABS: Glucose Point of Care 204 mg/dl (65-105)
[2024-07-23] MEDS: INSULIN HUMAN LISPRO (*BKC) 1,000 UNITS/10 ML VIAL SUB-Q (13:20)
[2024-07-23 16:00] VITALS: BP 110/60; PULSE 70; RESP 14; TEMP 36.6; O2SAT 94
[2024-07-23 16:46] LABS: Glucose Point of Care 96 mg/dl (65-105)
[2024-07-23] MEDS: SENNA/DOCUSATE SODIUM TABLET 1 TAB PO (21:09)
[2024-07-23] MEDS: guaiFENesin 200 MG/10 ML UDC 100 MG PO (21:09)
[2024-07-23] MEDS: MELATONIN 5 MG TABLET PO (21:09)
[2024-07-23] MEDS: ALPRAZolam (*CRX) 0.5 MG TABLET PO (21:09)
[2024-07-23] MEDS: SERTRALINE HCL 25 MG TABLET PO (21:09)
[2024-07-23 21:27] LABS: Glucose Point of Care 200 mg/dl (65-105)
[2024-07-24] VITALS: BP 98/41; PULSE 62; RESP 20; TEMP 36.5; O2SAT 93
[2024-07-24] MEDS: LEVOTHYROXINE SODIUM 75 MCG TABLET BY MOUTH (06:16)
[2024-07-24] MEDS: BUDESONIDE/FORMOTEROL (*SP) 160-4.5 MCG 6 GM INH 2 PUFF INHALATION ×2 (06:16→18:39)
[2024-07-24] MEDS: CLOTRIMAZOLE 10 MG TROC PO ×2 (06:17→18:39)
[2024-07-24 08:00] VITALS: BP 100/45; PULSE 68; RESP 14; TEMP 36.6; O2SAT 94
[2024-07-24 08:14] LABS: Glucose Point of Care 114 mg/dl (65-105)
[2024-07-24] MEDS: FLUTICASONE PROPIONATE 0.05% NA SPR 16 GM BTL (*BKC) 2 SPRAY NASAL (09:34)
[2024-07-24 09:35] VITALS: PULSE 68
[2024-07-24] MEDS: guaiFENesin 12 HR 600 MG TABCR PO ×2 (09:35→21:11)
[2024-07-24] MEDS: GLIMEPIRIDE 1 MG TABLET 3 MG PO (09:35)
[2024-07-24] MEDS: METOPROLOL TARTRATE 50 MG TAB 100 MG PO ×2 (09:35→21:12)
[2024-07-24] MEDS: TIMOLOL MALEATE 0.5% OP SOLN 5 ML BOTTLE 1 DROP EACH EYE (09:35)
[2024-07-24] MEDS: LOSARTAN POTASSIUM 50 MG TABLET 100 MG PO (09:36)
[2024-07-24] MEDS: CLOPIDOGREL BISULFATE 75 MG TABLET PO (09:36)
[2024-07-24] MEDS: amLODIPine BESYLATE 5 MG TABLET 10 MG PO (09:36)
[2024-07-24] MEDS: FUROSEMIDE 40 MG TABLET PO (09:36)
[2024-07-24] MEDS: LORATADINE 10 MG TABLET PO (09:37)
[2024-07-24 11:58] LABS: Glucose Point of Care 173 mg/dl (65-105)
[2024-07-24 16:00] VITALS: BP 122/39; PULSE 60; RESP 16; TEMP 36.3; O2SAT 93
[2024-07-24 16:54] LABS: Glucose Point of Care 95 mg/dl (65-105)
[2024-07-24] MEDS: SERTRALINE HCL 25 MG TABLET PO (21:11)
[2024-07-24] MEDS: guaiFENesin 200 MG/10 ML UDC 100 MG PO (21:11)
[2024-07-24] MEDS: MELATONIN 5 MG TABLET PO (21:11)
[2024-07-24] MEDS: ALPRAZolam (*CRX) 0.5 MG TABLET PO (21:12)
[2024-07-24] MEDS: SENNA/DOCUSATE SODIUM TABLET 1 TAB PO (21:12)
[2024-07-24 21:36] LABS: Glucose Point of Care 119 mg/dl (65-105)
[2024-07-25] VITALS: BP 118/56; PULSE 60; RESP 18; TEMP 36.4; O2SAT 94
[2024-07-25] MEDS: LEVOTHYROXINE SODIUM 75 MCG TABLET BY MOUTH (06:07)
[2024-07-25] MEDS: BUDESONIDE/FORMOTEROL (*SP) 160-4.5 MCG 6 GM INH 2 PUFF INHALATION ×2 (06:07→18:40)
[2024-07-25] MEDS: CLOTRIMAZOLE 10 MG TROC PO ×2 (06:07→18:41)
[2024-07-25 07:45] LABS: Glucose Point of Care 116 mg/dl (65-105)
[2024-07-25 08:00] VITALS: BP 88/32; PULSE 67; RESP 12; TEMP 36.6; O2SAT 93
[2024-07-25 09:38] VITALS: PULSE 67
[2024-07-25] MEDS: METOPROLOL TARTRATE 50 MG TAB 100 MG PO ×2 (09:38→21:38)
[2024-07-25] MEDS: ERGOCALCIFEROL 50,000 UNITS CAPSULE 50000 UNITS PO (09:38)
[2024-07-25] MEDS: guaiFENesin 12 HR 600 MG TABCR PO ×2 (09:38→21:38)
[2024-07-25] MEDS: GLIMEPIRIDE 1 MG TABLET 3 MG PO (09:39)
[2024-07-25] MEDS: amLODIPine BESYLATE 5 MG TABLET 10 MG PO (09:39)
[2024-07-25] MEDS: FUROSEMIDE 40 MG TABLET PO (09:39)
[2024-07-25] MEDS: LOSARTAN POTASSIUM 50 MG TABLET 100 MG PO (09:39)
[2024-07-25] MEDS: CLOPIDOGREL BISULFATE 75 MG TABLET PO (09:40)
[2024-07-25] MEDS: ATORVASTATIN 10 MG TABLET PO (09:40)
[2024-07-25] MEDS: FLUTICASONE PROPIONATE 0.05% NA SPR 16 GM BTL (*BKC) 2 SPRAY NASAL (09:40)
[2024-07-25] MEDS: TIMOLOL MALEATE 0.5% OP SOLN 5 ML BOTTLE 1 DROP EACH EYE (09:40)
[2024-07-25] MEDS: LORATADINE 10 MG TABLET PO (09:40)
--- NOTE | 2024-07-25 10:49 | P.PNIM_ITS ---
Progress Note: A&P Assessment and Plan (1) Physical deconditioning: Code(s): R53.81 - Other malaise Status: Acute Assessment and Plan: * PT and OT ordered * Continue fall precautions * CC 07/26/2024 (2) Diabetes mellitus: Code(s): E11.9 - Type 2 diabetes mellitus without complications Status: Acute Assessment and Plan: * Blood sugars ranging 131-228 * Hgb A1C 6.3 on 07/03/2024 * Accu checks AC/HS * High-dose SSI ordered * Continue glimepiride * hypoglycemic protocol in place * Diabetic diet ordered (3) CHF (congestive heart failure): Qualifiers: Heart failure chronicity: unspecified Heart failure type: unspecified Qualified Code(s): I50.9 - Heart failure, unspecified Code(s): I50.9 - Heart failure, unspecified Status: Acute Assessment and Plan: * Echocardiogram from 07/05/2024 reviewed which showed normal LV systolic function with an estimated EF of 60-65%, grade 1 diastolic dysfunction, moderate pulmonary hypertension with an estimated pulmonary arterial systolic pressure 51 mmHg, moderate aortic valve sclerosis * Continue Lasix 40 mg daily (4) Hypertension: Code(s): I10 - Essential (primary) hypertension Status: Acute Assessment and Plan: * Blood pressure ranging 125/58 to 157/74 * Continue losartan (5) Hypothyroidism: Code(s): E03.9 - Hypothyroidism, unspecified Status: Acute Assessment and Plan: * Continue Synthroid (6) Depression: Code(s): F32.A - Depression, unspecified Status: Acute Assessment and Plan: * Continue Zoloft (7) Chronic kidney disease: Code(s): N18.9 - Chronic kidney disease, unspecified Status: Acute Assessment and Plan: * Creatinine 1.50 * Baseline creatinine ranging 1.11 to 1.43 * close to to baseline will need to monitor now that she is on Lasix daily (8) Community acquired pneumonia: Code(s): J18.9 - Pneumonia, unspecified organism Status: Resolved Assessment and Plan: * Currently on Levaquin completed therapy * Continue to wean O2 for sat greater than 92% * Continue breathing treatments q.6 hours * Taper prednisone * Robitussin with codeine for at bedtime stopped * Continue Mucinex * Continue pep therapy and incentive spirometry * May need a home O2 eval before discharge/Weaned off Oxygen Stopped prednisone Plan Code status: DNR DVT prophylaxis: Not indicated patient is a swing bed Stress ulcer prophylaxis: NA PT/OT notes: Swing bed CC 07/26/2024 Disposition: patient continues admission to swing bed unit progressing close to baseline plan for care conference tomorrow. Time Spent With Patient Time with patient: 15 - 25 minutes Subjective Date/time seen: 07/25/24 10:49 Interval history: Patient Is an 88-year-old female who was admitted for rehabilitation and to swing bed. 07/25/2024: Patient with no complaints progressing well with PT/OT and plans for CC 07/26/2024 and discharge 07/27. Review of Systems Review of Systems: All systems reviewed & are unremarkable except as noted in HPI and below Exam Narrative: General: In no acute distress, well nourished, cheerful Head: atraumatic, no encephalopathy ENT: moist mucous membranes Neck: supple, no JVD Cardiac: RRR Respiratory: lung penny are clear to auscultation Gastrointestinal: soft, non-distended Extremities: moves all extremities well, bilateral lower extremity edema Neuro: Alert and oriented x4, cranial nerves intact, no neuro deficits. Objective Data Vital Signs Vital Signs: Vital Signs - 24 hr 07/24/24 16:00 07/25/24 00:00 07/25/24 08:00 Temperature 97.4 F L 97.6 F 97.8 F Pulse Rate 60 60 67 Respiratory Rate 16 18 12 Blood Pressure 122/39 L 118/56 L 88/32 L Pulse Oximetry 93 94 93 Oxygen Delivery Room Air Room Air Room Air 07/25/24 09:38 Temperature Pulse Rate 67 Respiratory Rate Blood Pressure Pulse Oximetry Oxygen Delivery Intake/Output Intake/Output: Intake & Output 07/22/24 07/23/24 07/24/24 07/25/24 23:59 23:59 23:59 23:59 Intake Total 2260 2925 2230 575 Balance 2260 2925 2230 575 Meds/Results Medications: Active Medications Generic Name Dose Route Start Last Admin Trade Name Freq PRN Reason Stop Dose Admin Albuterol/Ipratropium 3 ml 07/18/24 09:15 Ipratropium 0.5 Mg/Albuterol Sulfate 2.5 Mg Ampul.Neb 3 Ml INHALATION Q6HRT PRN wheezing Alprazolam 0.5 mg 07/09/24 21:00 07/24/24 21:12 Alprazolam (*Crx) 0.5 Mg Tablet PO 0.5 mg HS VANESSA Administration Amlodipine Besylate 10 mg 07/08/24 09:00 07/25/24 09:39 Amlodipine Besylate 5 Mg Tablet PO 10 mg DAILY VANESSA Administration Atorvastatin Calcium 10 mg 07/09/24 09:00 07/25/24 09:40 Atorvastatin 10 Mg Tablet PO 10 mg Q48HR VANESSA Administration Benzocaine 1 lozenge 07/07/24 13:41 Benzocaine/Menthol (*Bkc) Lozenge PO PRN PRN cough Bisacodyl 5 mg 07/10/24 11:56 07/10/24 13:04 Bisacodyl 5 Mg Tablet Ec PO 5 mg DAILY PRN Administration Constipation Budesonide/Formoterol Fumarate 2 puff 07/07/24 18:30 07/25/24 06:07 Budesonide/Formoterol (*Sp) 160-4.5 Mcg 6 Gm Inh INHALATION 2 puff Q12HRT VANESSA Administration Clopidogrel Bisulfate 75 mg 07/08/24 09:00 07/25/24 09:40 Clopidogrel Bisulfate 75 Mg Tablet PO 75 mg DAILY VANESSA Administration Clotrimazole 10 mg 07/07/24 19:00 07/25/24 06:07 Clotrimazole 10 Mg Troc PO 10 mg Q12H VANESSA Administration Dextrose 12.5 gm 07/07/24 11:57 Dextrose 50% 25 Gm/50 Ml Syringe IV PUSH PRN PRN Hypoglycemia Protocol Ergocalciferol 50,000 units 07/11/24 09:00 07/25/24 09:38 Ergocalciferol 50,000 Units Capsule PO 50,000 units WEEKLY VANESSA Administration Fluticasone Propionate 2 spray 07/08/24 09:00 07/25/24 09:40 Fluticasone Propionate 0.05% Na Spr 16 Gm Btl (*Bkc) NASAL 2 spray QAM VANESSA Administration Furosemide 40 mg 07/08/24 11:30 07/25/24 09:39 Furosemide 40 Mg Tablet PO 40 mg DAILY VANESSA Administration Glimepiride 3 mg 07/08/24 09:00 07/25/24 09:39 Glimepiride 1 Mg Tablet PO 3 mg QAM VANESSA Administration Glucagon 1 mg 07/07/24 11:57 Glucagon For Inj 1 Mg Vial IM PRN PRN Hypoglycemia Protocol Glucose 15 gm 07/07/24 11:57 Glucose Oral Gel 15 Gm Of Glucse In 37.5 Gm Tube PO PRN PRN Hypoglycemia Protocol Guaifenesin 600 mg 07/07/24 21:00 07/25/24 09:38 Guaifenesin 12 Hr 600 Mg Tabcr PO 600 mg Q12HR VANESSA Administration Guaifenesin 100 mg 07/07/24 21:00 07/24/24 21:11 Guaifenesin 200 Mg/10 Ml Udc PO 100 mg HS VANESSA Administration Dextrose 1,000 mls @ 100 mls/hr 07/07/24 11:57 Dextrose 5% 1,000 Ml IVPB PRN PRN Hypoglycemia Protocol Insulin Human Lispro 4 - 8 units 07/07/24 12:00 07/25/24 08:54 Insulin Human Lispro (*Bkc) 1,000 Units/10 Ml Vial SUB-Q Not Given TIDWM VANESSA Protocol Levothyroxine Sodium 75 mcg 07/08/24 06:30 07/25/24 06:07 Levothyroxine Sodium 75 Mcg Tablet BY MOUTH 75 mcg DAILY@0630 VANESSA Administration Loratadine 10 mg 07/08/24 09:00 07/25/24 09:40 Loratadine 10 Mg Tablet PO 10 mg DAILY VANESSA Administration Losartan Potassium 100 mg 07/09/24 09:00 07/25/24 09:39 Losartan Potassium 50 Mg Tablet PO 100 mg DAILY VANESSA Administration Melatonin 5 mg 07/08/24 21:00 07/24/24 21:11 Melatonin 5 Mg Tablet PO 5 mg HS VANESSA Administration Metoprolol Tartrate 100 mg 07/07/24 21:00 07/25/24 09:38 Metoprolol Tartrate 50 Mg Tab PO 100 mg Q12HR VANESSA Administration Phenyleph/Shark Oil/[place] Butter 1 supp 07/11/24 08:53 Phenylephrine Hcl/[place] Butter Supp.Rect (*Bkc) RECTAL Q12HR PRN Hemorrhoids Phenyleph/Shark Oil/Min Oil/Petrol 1 applic 07/11/24 21:23 07/13/24 08:55 Phenyleph/Shark Oil/Mo/Petrol Cream 26 Gm RECTAL 1 applic DAILY PRN Administration Hemorrhoids Senna/Docusate Sodium 1 tab 07/14/24 21:00 07/24/24 21:12 Senna/Docusate Sodium Tablet PO 1 tab HS VANESSA Administration Sertraline HCl 25 mg 07/07/24 21:00 07/24/24 21:11 Sertraline Hcl 25 Mg Tablet PO 25 mg QHS VANESSA Administration Timolol Maleate 1 drop 07/08/24 09:00 07/25/24 09:40 Timolol Maleate 0.5% Op Soln 5 Ml Bottle EACH EYE 1 drop QAM VANESSA Administration Radiology Results: ITS Impressions Chest X-Ray 07/10/24 07:24 IMPRESSION: Highly suggestive bilateral pneumonia. Underlying fibrotic changes. Labs Labs: Laboratory Results - last 24 hr 07/24/24 07/24/24 07/24/24 11:51 16:49 21:30 POC Capillary Glucose 173 H 95 119 H 07/25/24 07:40 POC Capillary Glucose 116 H Hospitalist MIPS Advance Care Plan I have confirmed that the patient's Advanced Care Plan is present, code status is documented, or surrogate decision maker is listed in patient medical record.: Yes Medication Reconciliation I have utilized all available resources to obtain, update and review the patients current medications (includes all prescriptions, OTC, herbals, cannabis, and nutritional supplements).: Yes The patient is not eligible for med reconciliation; the patient is in a emergent medical situation where delaying treatment would jeopardize the patients health.: No
[2024-07-25 11:53] LABS: Glucose Point of Care 188 mg/dl (65-105)
[2024-07-25 16:00] VITALS: BP 121/44; PULSE 66; RESP 18; TEMP 36.4; O2SAT 93
[2024-07-25 17:00] LABS: Glucose Point of Care 105 mg/dl (65-105)
[2024-07-25 20:00] VITALS: PULSE 68; RESP 16; O2SAT 93
[2024-07-25 21:38] VITALS: PULSE 85
[2024-07-25] MEDS: SERTRALINE HCL 25 MG TABLET PO (21:38)
[2024-07-25] MEDS: MELATONIN 5 MG TABLET PO (21:38)
[2024-07-25] MEDS: ALPRAZolam (*CRX) 0.5 MG TABLET PO (21:39)
[2024-07-25] MEDS: guaiFENesin 200 MG/10 ML UDC 100 MG PO (21:39)
[2024-07-25 21:53] LABS: Glucose Point of Care 146 mg/dl (65-105)
[2024-07-25 22:58] LABS: Toxigenic C. Diff NEGATIVE (NEGATIVE)
[2024-07-26] VITALS: BP 141/67; PULSE 88; RESP 18; TEMP 36.2; O2SAT 94
[2024-07-26] MEDS: LEVOTHYROXINE SODIUM 75 MCG TABLET BY MOUTH (06:39)
[2024-07-26] MEDS: BUDESONIDE/FORMOTEROL (*SP) 160-4.5 MCG 6 GM INH 2 PUFF INHALATION ×2 (06:39→18:01)
[2024-07-26] MEDS: CLOTRIMAZOLE 10 MG TROC PO ×2 (06:39→18:01)
--- NOTE | 2024-07-26 07:23 | PM.EVENT ---
Event Note Event Note Event Note: Patient started complaining of right ear pain and mild sore throat overnight RN. Is provider was notified upon arrival this morning. HEENT Exam: Brief exam demonstrating - Patient's ears and throat were assessed and found to be without erythema, edema, exudate with a patent posterior oropharynx without any enlargement of tonsils. Patient's left tympanic membrane is noted to have a perforated eardrum. External auditory canal is clear debris or cerumen. There is no external ear tenderness on palpation. The right tympanic membrane appears without erythema, bulging. There is a moderate amount of cerumen present in the external auditory canal without any edema. There is no external auricular tragal tenderness on palpation for left ears. There is no lymphadenopathy present in the anterior cervical / submandibular/pre or postauricular regions. No change in treatment recommendations.
[2024-07-26 07:41] LABS: Glucose Point of Care 130 mg/dl (65-105)
[2024-07-26 08:00] VITALS: BP 118/56; PULSE 61; RESP 18; TEMP 36.5
[2024-07-26] MEDS: FLUTICASONE PROPIONATE 0.05% NA SPR 16 GM BTL (*BKC) 2 SPRAY NASAL (08:34)
[2024-07-26] MEDS: TIMOLOL MALEATE 0.5% OP SOLN 5 ML BOTTLE 1 DROP EACH EYE (08:34)
[2024-07-26] MEDS: amLODIPine BESYLATE 5 MG TABLET 10 MG PO (08:34)
[2024-07-26 08:35] VITALS: PULSE 61
[2024-07-26] MEDS: guaiFENesin 12 HR 600 MG TABCR PO ×2 (08:35→21:16)
[2024-07-26] MEDS: METOPROLOL TARTRATE 50 MG TAB 100 MG PO ×2 (08:35→21:15)
[2024-07-26] MEDS: CLOPIDOGREL BISULFATE 75 MG TABLET PO (08:37)
[2024-07-26] MEDS: LOSARTAN POTASSIUM 50 MG TABLET 100 MG PO (08:37)
[2024-07-26] MEDS: LORATADINE 10 MG TABLET PO (08:37)
[2024-07-26] MEDS: FUROSEMIDE 40 MG TABLET PO (08:37)
[2024-07-26] MEDS: GLIMEPIRIDE 1 MG TABLET 3 MG PO (08:38)
[2024-07-26] MEDS: LOPERAMIDE HCL 2 MG CAPSULE PO (10:11)
[2024-07-26 12:07] LABS: Glucose Point of Care 170 mg/dl (65-105)
[2024-07-26 16:00] VITALS: BP 130/50; PULSE 64; RESP 20; TEMP 36.4; O2SAT 91
[2024-07-26 17:10] LABS: Glucose Point of Care 100 mg/dl (65-105)
[2024-07-26 20:00] VITALS: PULSE 63; RESP 18; O2SAT 91
[2024-07-26 21:15] VITALS: PULSE 65
[2024-07-26] MEDS: guaiFENesin 200 MG/10 ML UDC 100 MG PO (21:16)
[2024-07-26] MEDS: MELATONIN 5 MG TABLET PO (21:16)
[2024-07-26] MEDS: SERTRALINE HCL 25 MG TABLET PO (21:16)
[2024-07-26] MEDS: ALPRAZolam (*CRX) 0.5 MG TABLET PO (21:16)
[2024-07-26 21:40] LABS: Glucose Point of Care 144 mg/dl (65-105)
[2024-07-27] VITALS: BP 138/52; PULSE 73; RESP 18; TEMP 36.2; O2SAT 93
[2024-07-27] MEDS: LEVOTHYROXINE SODIUM 75 MCG TABLET BY MOUTH (06:35)
[2024-07-27] MEDS: BUDESONIDE/FORMOTEROL (*SP) 160-4.5 MCG 6 GM INH 2 PUFF INHALATION (06:35)
[2024-07-27] MEDS: CLOTRIMAZOLE 10 MG TROC PO (06:35)
[2024-07-27 07:57] LABS: Glucose Point of Care 104 mg/dl (65-105)
[2024-07-27 08:00] VITALS: BP 140/57; PULSE 64; RESP 20; TEMP 35.9; O2SAT 92
[2024-07-27 09:19] VITALS: PULSE 66
[2024-07-27] MEDS: FLUTICASONE PROPIONATE 0.05% NA SPR 16 GM BTL (*BKC) 2 SPRAY NASAL (09:19)
[2024-07-27] MEDS: METOPROLOL TARTRATE 50 MG TAB 100 MG PO (09:19)
[2024-07-27] MEDS: TIMOLOL MALEATE 0.5% OP SOLN 5 ML BOTTLE 1 DROP EACH EYE (09:19)
[2024-07-27] MEDS: LOSARTAN POTASSIUM 50 MG TABLET 100 MG PO (09:20)
[2024-07-27] MEDS: GLIMEPIRIDE 1 MG TABLET 3 MG PO (09:20)
[2024-07-27] MEDS: FUROSEMIDE 40 MG TABLET PO (09:20)
[2024-07-27] MEDS: guaiFENesin 12 HR 600 MG TABCR PO (09:20)
[2024-07-27] MEDS: LORATADINE 10 MG TABLET PO (09:21)
[2024-07-27] MEDS: CLOPIDOGREL BISULFATE 75 MG TABLET PO (09:21)
--- NOTE | 2024-07-27 09:23 | P.DS_ITS ---
DS: Admitting Diagnosis Discharge Date 07/27/2024 Admitting Diagnosis REHAB DS: Discharge Diagnosis Discharge Diagnosis (1) Physical deconditioning: Code(s): R53.81 - Other malaise Status: Acute (2) Diabetes mellitus: Code(s): E11.9 - Type 2 diabetes mellitus without complications Status: Acute (3) CHF (congestive heart failure): Qualifiers: Heart failure chronicity: unspecified Heart failure type: unspecified Qualified Code(s): I50.9 - Heart failure, unspecified Code(s): I50.9 - Heart failure, unspecified Status: Acute Assessment and Plan: * Continue 40mg Lasix (4) Hypertension: Code(s): I10 - Essential (primary) hypertension Status: Acute Assessment and Plan: * Continue losartan (5) Hypothyroidism: Code(s): E03.9 - Hypothyroidism, unspecified Status: Acute Assessment and Plan: * Continue Synthroid (6) Depression: Code(s): F32.A - Depression, unspecified Status: Acute Assessment and Plan: * Continue Zoloft (7) Chronic kidney disease: Code(s): N18.9 - Chronic kidney disease, unspecified Status: Acute Assessment and Plan: * close to to baseline will need to monitor now that she is on Lasix daily with outpatient primary (8) Community acquired pneumonia: Code(s): J18.9 - Pneumonia, unspecified organism Status: Resolved Assessment and Plan: Completed ABX course Plan Disposition: Discharged to home with home health DS: Summary Hospital Course Reason for hospitalization: REHAB Hospital Course: Patient was a 88-year-old female with a significant past medical history of carotid stenosis, depression, hypothyroidism, diabetes mellitus, hypertension, peripheral vascular disease, history of Smith's palsy who originally presented to [facility] for shortness of breath and dyspnea. She was diagnosed with pneumonia and treated with antibiotics x7 days. She was also given Lasix IV for CHF exacerbation. She did get an MICHELLE from over diuresis that she is still recovering from. While hospitalized she was had PT and OT work with her who recommend additional rehab time. Patient progressed with PT/OT back to her baseline prior to hospitalization. Patient was ambulating with her walker and able to care for self at time of discharge. Patient with no complaints at time of discharged, vitals and labs reviewed. She was instructed to follow-up with her primary and cardiology after discharge. I did continue the sertraline 25mg daily I started for her depression and urged her to get involved with support groups for grieving widows. Patient was discharged to home with home health transported via her family. Status at Discharge Functional status at discharge: uses cane/walker Overall status at discharge: patient is back to baseline Time Spent with Patient Time attestation: Total time spent providing and/or coordinating discharge services: Time spent: Greater than 30 minutes Exam Narrative: General: In no acute distress, well nourished, cheerful Head: atraumatic, no encephalopathy ENT: moist mucous membranes Neck: supple, no JVD Cardiac: RRR Respiratory: lung penny are clear to auscultation Gastrointestinal: soft, non-distended Extremities: moves all extremities well, bilateral lower extremity edema Neuro: Alert and oriented x4, cranial nerves intact, no neuro deficits. DS: Data Data Completed and Pending Labs on day of discharge: Labs from last 24 hours 07/27/24 07/26/24 07/26/24 07:52 21:34 17:04 POC Capillary Glucose 104 144 H 100 07/26/24 12:00 POC Capillary Glucose 170 H Discharge Plan Discharge Attending physician on discharge: Lillie Ferrara Consulting providers: Lynda Patel; Monie Wolf; Vangie Gorman; hSeridan Beltran Discharging Clinician: Monie Wolf Anticipated Discharge Date/Time: 07/27/24 08:51 Patient Disposition: Home with Home Health Service Discharge Instructions: 1).Per Care Coordination: [facility] will follow you at discharge and will try to see you on or Thursday this week, they will call you to schedule a date and time. 2). Continue with home medications as indicated 3). Please make follow-up with your primary care physician within 2-4 weeks 4). Continue to monitor your blood sugars at home I recommend a diabetic/heart healthy low sodium diet 5). Please make follow-up with a fire prevention research engineer to monitor your heart failure and aortic valve sclerosis continue taking 40mg lasix daily as prescribed and report any significant weight gain or acute shortness of breath 6). I encourage to increase activity as tolerated How can you care for yourself at home? • Keep track of any new symptoms or changes in your symptoms. • Rest until you feel better. • Be safe with medicines. Take your medicines exactly as prescribed. Call your doctor if you think you are having a problem with your medicine. • Do not drive after taking a prescription pain medicine. • Ensure to follow-up with primary care physician as indicated and provide updated medication list provided to you at discharge. When should you call for help? Call 911 anytime you think you may need emergency care. For example, call if: • You passed out (lost consciousness). Call your doctor now or seek immediate medical care if: • You have new symptoms like fever, difficulty breathing, Chest pain, vomiting, or rash. • You have new or different pain. • You are confused and are having trouble thinking clearly. • Your symptoms are getting worse. Watch closely for changes in your health, and be sure to contact your doctor if: • You do not get better as expected. Patient Instructions: Antibiotic Form, Heart Failure (DC), Chronic Kidney Disease (DC), Depression (DC), Fall Prevention for Older Adults (DC), Low-Sodium Diet (DC), Type 2 Diabetes in the Older Adult (DC), Diabetes and Nutrition (DC), Depression Management for Older Adults (DC) Patient Language: Tamazight Stand Alone Forms: General Discharge Information Follow-up/Referrals: Nilesh Nuñez MD [Primary Care Provider] - 3 Weeks Discharge Medications: New furosemide 40 mg Tablet 40 mg PO DAILY Qty: 30 0RF sertraline 25 mg tablet 25 mg PO DAILY Qty: 30 0RF diclofenac sodium [Voltaren Arthritis Pain] 1 % gel 2 g topical QID Qty: 100 0RF Rx Instructions: apply to single elbow, wrist or hand; for hand includes palm/fingers/back of hand Continued levothyroxine 75 mcg tablet See Rx Instructions .ROUTE .COMPLEX Patient Comments: Takes 150mcg on sundays Rx Instructions: TAKE 1 TABLET BY MOUTH EVERY DAY AND TAKE 1 EXTRA TAB ON THURSDAY ergocalciferol (vitamin D2) 1,250 mcg (50,000 unit) capsule 1,250 mcg PO WEEKLY Patient Comments: pt takes on Mondays albuterol sulfate 90 mcg/actuation HFA aerosol inhaler 2 puff INHALATION Q6H PRN (Reason: Shortness Of Breath Or Wheezing) 30 Days Qty: 6.7 0RF Rx Instructions: 2 PUFFS WITH SPACER Q6H PRN SOB/COUGH clotrimazole 10 mg kirti 10 mg PO BID Rx Instructions: after using the steroid inhaler budesonide-formoterol 160-4.5 mcg/actuation HFA aerosol inhaler 2 puff INHALATION BID metoprolol tartrate 100 mg tablet 100 mg PO BID clopidogrel 75 mg tablet 75 mg PO DAILY glimepiride 2 mg tablet 3 mg PO QAM Rx Instructions: 1.5 TABLETS (3MG) PO EVERY MORNING alprazolam 0.5 mg tablet 0.5 mg PO HS Patient Comments: Pharmacist confirmed med picked up but patients doesn't remember if she takes it. amlodipine 10 mg tablet 10 mg PO DAILY timolol maleate 0.5 % drops 1 drp EACH EYE QAM losartan 100 mg tablet 100 mg PO DAILY atorvastatin 10 mg tablet 10 mg PO EVERY OTHER DAY mecobalamin (vitamin B12) [B12 Active] 1,000 mcg tablet,chewable 1,000 mcg PO DAILY loratadine [Claritin] 10 mg tablet 10 mg PO DAILY resveratrol 100 mg capsule 100 mg PO DAILY@0800 fluticasone propionate 50 mcg/actuation Bear,Suspension 2 spray intranasal QAM Qty: 1 0RF Discontinued (DME) nebulizers Misc See Rx Instructions .Route Qty: 1 0RF Rx Instructions: As directed (DME) Womens daily vitamins 0 .ROUTE .MEDSUPPLY prednisone 20 mg Tablet 40 mg PO DAILY@0800 Qty: 1 0RF guaifenesin 100 mg/5 mL Liquid 100 mg PO HS Qty: 250 0RF levofloxacin 750 mg Tablet 750 mg PO Q48H Qty: 2 0RF sertraline [Zoloft] 50 mg Tablet 25 mg PO QHS Qty: 1 0RF Chloraseptic Sore Throat 6-10 mg Lozenge 1 maci PO PRN PRN (Reason: cough) Qty: 1 0RF guaifenesin [Mucus Relief ER] 600 mg Tablet Extended Release 12hr 600 mg PO Q12HR Qty: 1 0RF ipratropium-albuterol 0.5 mg-3 mg(2.5 mg base)/3 mL Solution For Nebulization 3 ml inhalation Q6HRT PRN (Reason: shortness of breath) Date of admission: 07/07/24 10:22 Primary Care Provider: Nilesh Nuñez Admitting Provider: Lillie Ferrara Attending physician on admission: Lillie Ferrara Condition: Improved Quality VTE Prophylaxis VTE prophylaxis: mechanical ordered -Patient's previous records reviewed on admission -ER notes reviewed in detail on admission -discussed all findings and current treatment plan with patient/Family/POA -Consultations reviewed for recommendations -Patient's disposition for safe discharge discussed with skilled nursing case manager Dictation performed by [employer] direct speech recognition software, therefore chain maker machine variants and typographical errors may occur. Hospitalist MIPS Heart Failure (Exclusion) Patient has history of Heart Transplant or Left Ventricular Assistive Device?: No IF YES, STOP HERE Heart Failure (Qualifier) Patient has current or prior documentation of LVEF less than or equal to 40%, or mod/servere depressed LVSF?: No IF NO, STOP HERE
[2024-07-27] MEDS: INSULIN HUMAN LISPRO (*BKC) 1,000 UNITS/10 ML VIAL SUB-Q (11:55)
[2024-07-27 11:57] LABS: Glucose Point of Care 213 mg/dl (65-105)
[2024-07-27] MEDS: DICLOFENAC SODIUM 1% 100 GM GEL (*BKC) 1 APPLIC TOPICAL (12:40)
--- NOTE | 2024-07-27 13:25 | PC.NURSE ---
Discharge instructions reviewed with patient and family. Patient taken off floor per wheelchair and assisted into private vehicle.
--- NOTE | 2024-07-27 13:45 | PC.NURSE ---
Called spoke Kelley(daughter) informed Mona left her house slipper here. Informed the shoes were in a bag with her name on it and would be at nurse station. If she decided she did not want them then give us a call and we could discard of them or donate. Kelley informs she would get back with us.
--- NOTE | 2024-07-29 12:42 | PC.NURSE ---
Discharge call back made, spoke with Mona who states, I'm doing better, my grandaugter who is an RN came over and read through all the instructions. We all understand what we are suppose to do. I have [facility] who came out today and gave me a bath. Physical Therapy came yesterday of evaluate. Starting next week they should be here a couple times a week. Informed of survey and she informs she would be glad to take the call.
== END 2024-07-27 13:25 | disposition home health service (06) | DRG 947 ==
PROVIDERS: Nurse Practitioner; Nurse Practitioner Family; Admitting Provider Internal Medicine; PCP Internal Medicine; Visit Provider Internal Medicine
DX: R53.81 Other malaise (principal); J18.9 Pneumonia, unspecified organism; I13.0 Hypertensive heart and chronic kidney disease with heart failure and stage 1 through stage 4 chronic kidney disease, or unspecified chronic kidney disease; N17.9 Acute kidney failure, unspecified; I65.29 Occlusion and stenosis of unspecified carotid artery; E03.9 Hypothyroidism, unspecified; E11.51 Type 2 diabetes mellitus with diabetic peripheral angiopathy without gangrene; E11.22 Type 2 diabetes mellitus with diabetic chronic kidney disease; F32.A Depression, unspecified; G51.0 Bell's palsy; H92.01 Otalgia, right ear; H72.92 Unspecified perforation of tympanic membrane, left ear; I50.9 Heart failure, unspecified; K64.9 Unspecified hemorrhoids; N18.9 Chronic kidney disease, unspecified; Z66 Do not resuscitate; Z79.4 Long term (current) use of insulin; Z79.02 Long term (current) use of antithrombotics/antiplatelets; Z79.84 Long term (current) use of oral hypoglycemic drugs
CPT/HCPCS: 36415; 71046; 80053; 80069; 82948; 83735; 83880; 85025; 85027; 87493; 94640; 97110; 97112; 97162; 97165; 97168; 97530; 97535; A9270; J1815; J7512

== ENCOUNTER 2024-08-04 17:13 | Outpatient (CLI) | payer MEDICARE, OTHER, SELFPAY ==
--- NOTE | ~2024-08-04 | XR_ITS ---
Clinical Indication: Cough PA and lateral views of the chest: Comparison: 07/10/2024 Findings: Extensive chronic interstitial disease present. No acute consolidation, pleural effusion, o r pneumothorax.. Cardiomediastinal silhouette is within normal limits. Bones and soft tissues are un remarkable. Impression: Extensive chronic interstitial disease, stable from prior exam. Reviewed, dictated and finalized at location . Impression: Extensive chronic interstitial disease, stable from prior exam.
--- OUTSIDE RECORDS SUMMARY | 2024-08-04 17:19 | XMS_ITS | Patient Health Record ---
Author Organization [facility] Address [address] [place], [place] [id number] Care Team Providers Care Hide Cleaner Name Role Phone OsmanyCHIOMA varghese Unavailable [phone] Nilesh Nuñez Unavailable Unavailable BIANCA MOISE Unavailable [phone] Allergies Allergen (clinical drug ingredient) Drug/Non Drug [...] 09/03/2023 Encounters Encounter Location Date Provider Diagnosis [address] [id number] 09/03/2023 BIANCA MOISE Other hammer toe(s) (acquired), right foot M20.41 ; Tinea unguium B35.1 ; Other hammer toe(s) (acquired), left foot M20.42 ; Pain in right toe(s) M79.674 ; Pain in left toe(s) M79.675 ; 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, bilateral legs I70.203 ; Acquired keratosis [keratoderma] palmaris et plantaris L85.1 and Type 2 diabetes mellitus with diabetic peripheral angiopathy without gangrene E11.51 Assessments Encounter Date Diagnosis (ICD Code) Assessment Notes Treatment Notes Treatment Clinical Notes Section Notes 09/03/2023 Tinea unguium (ICD-10 - B35.1) Aseptic [...] (ICD-10 - M79.675) 09/03/2023 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
--- OUTSIDE RECORDS SUMMARY | 2024-08-04 17:19 | XMS_ITS ---
Author Organization [facility] Address [address] [place], [place] [id number] Care Team Providers Care Agent Licensing Clerk Name Role Phone TatiCHIOMA worrell Unavailable [phone] Nilesh Nuñez Unavailable Unavailable BIANCA MOISE Unavailable [phone] REASON FOR VISIT *General care Encounters Encounter Location Date Provider Diagnosis [address] [id number] 11/05/2023 BIANCA MOISE Plan Of Treatment No Information Progress Notes * TERA CARRENODOB:1935 (88 yo F)Acc No.[id number]:11/05/2023 Patient: TERA ORTIZ Alina Provider: Mary Lou MOISE :1935 A ge:88 Y S ex:Female Date:11/05/2023 Address:[address] [place] [address] [address], [id number] Subjective: * Chief Complaints: * 1 . *General care. * Medical History: Objective: * Vitals: Assessment: Plan: * Treatment: * Billing Information: * Visit Code: * Procedure Codes: * Electronic signature of LUIS MOISE DPM on 08/04/2024 at 05:19 PM CDT Sign off status: Pending * Provider: Mary Lou MOISE Date: 0 11/05/2023 Generated for Katti ng/Faporterg/eTransmitting on: 0 08/04/2024 05:19 PM CDT
[2024-08-04 17:32] LABS: Mean Corpuscular Hemoglobin 29.9 pg (27.0-31.0); Mean Corpuscular Volume 96.6 fL (78.0-102.0); Mean Platelet Volume 9.4 fl (9.2-11.8); Platelet Count Result 436 K/mm3 (150-420); Red Blood Count 4.35 M/mm3 (4.20-5.40); White Blood Count 6.8 K/mm3 (4.8-10.8)
[2024-08-04 17:34] LABS: Add Urine Microscopic? YES; Appearance Urine Clear (Clear); Bilirubin Urine Negative (Negative); Blood Urine Negative (Negative); Color Urine Light Yellow (Yellow); Glucose Urine UA Negative (Negative); Ketones Urine Negative (Negative); Leukocyte Esterase Ur 2+ (Negative); Nitrate Urine Negative (Negative); Protein Urine Negative (Negative); Specific Grav Ur <= 1.005 (1.010-1.020); Urobilinogen Urine 0.2 mg/dL (0.2-1.0)
[2024-08-04 17:51] LABS: Bacteria Urine 1+ /hpf; RBC Urine 0-2 /hpf (0-2); Squamous Epithelial Cell Urine Rare /hpf (Few); WBC Urine 21-30 /hpf (0-3)
[2024-08-04 17:53] LABS: MALB Creatinine Ratio 29.7 mg/g (0-30); Microalbumin Urine Random 11.3 mg/L (0-16.7)
[2024-08-04 18:19] LABS: Alanine Aminotransferase 18 U/L (6-35); Albumin Level 3.5 g/dL (3.5-5.1); Alkaline Phosphatase 96 U/L (38-126); Anion Gap 5 mmol/L (4-12); Aspartate Amino Transferase 21 U/L (14-36); Bilirubin,Total 0.3 mg/dL (0.2-1.3); Blood Urea Nitrogen 21 mg/dL (7-17); Carbon Dioxide 26 mmol/L (22-30); Chloride 105 mmol/L (98-107); Cholesterol 158 mg/dL (0-200); Creatine Kinase 30 U/L (30-135); Estimated Glomerular Filt Rate 44; Glucose 144 mg/dL (65-110); HDL Direct 48 mg/dL; Iron 44 ug/dL (37-170); LDL Cholesterol Calculated 86 mg/dL (<130); Osmolality Calculated 288 mOsm/kg (285-295); Potassium 4.9 mmol/L (3.4-5.0); Sodium 136 mmol/L (137-145); Total Protein 6.6 g/dL (6.3-8.2); Triglycerides 120 mg/dL (<150)
[2024-08-04 18:28] LABS: NT Pro B Type Natriuretic Pept 802 pg/mL (19.9-100)
[2024-08-04 18:36] LABS: Free T4 Free Thyroxine 1.52 ng/dL (0.78-2.19)
[2024-08-04 19:09] LABS: Vitamin B12 > 1000.0 pg/mL (239-931)
== END 2024-08-04 17:14 | disposition home or self-care (01) ==
LOC: CHSLAB 17:17
PROVIDERS: PCP Internal Medicine; Visit Provider Internal Medicine
DX: E03.9 Hypothyroidism, unspecified (principal); I25.10 Atherosclerotic heart disease of native coronary artery without angina pectoris; E53.8 Deficiency of other specified B group vitamins; E11.59 Type 2 diabetes mellitus with other circulatory complications; D64.9 Anemia, unspecified; E78.2 Mixed hyperlipidemia; N18.4 Chronic kidney disease, stage 4 (severe); R05.9 Cough, unspecified; R06.02 Shortness of breath
CPT/HCPCS: 36415; 71046; 80053; 80061; 81001; 82043; 82550; 82607; 82728; 83540; 83880; 84439; 84443; 84481; 85027